=== PATIENT | male | born 1940 | race Caucasian/White ===

== ENCOUNTER 2016-10-26 15:14 | Emergency (ER) | payer OTHER ==
[~2016-10-26] VITALS: Ht 177.8 cm; Wt 94.5 kg
[~2016-10-26 15:14] MED LIST: ASPEC81; ATOR-24; CLTP; MULT-506; NTRGSL/4 UT; PRLSR20
[2016-10-26 15:18] VITALS: TEMP 36.8; Ht 177.8 cm; Wt 94.5 kg
[2016-10-26] MEDS ORDERED: XYLOCAINE 1%/SOD BICARB 20 ML VIAL INFIL ONE (15:30)
[2016-10-26] MEDS ORDERED: NITR0.4S UT (15:39)
[2016-10-26] MEDS ORDERED: MULTTAB58 PO (15:39)
[2016-10-26] MEDS ORDERED: LISI-461 PO (15:39)
[2016-10-26] MEDS ORDERED: OMEP20CA9 PO (15:39)
[2016-10-26] MEDS ORDERED: ASPI81TA21 PO (15:39)
[2016-10-26] MEDS ORDERED: CALCTAB7 PO (15:39)
[2016-10-26] MEDS ORDERED: LPT/40 PO (15:39)
[2016-10-26] MEDS ORDERED: DIPHTHERIA/TETANUS/PERTUSSIS 0.5 ML SYR/VIAL IM. ONE (15:45)
--- NOTE | 2016-10-26 16:13 | EMERGENCY ROOM VISIT NOTE ---
ED Visit Note First contact with patient: 16:02 I have seen and examined this patient with Nicolle Melo and generally agree with the treatment plan as discussed. Current/Historical Medications Scheduled Aspirin Enteric Coated (Ecotrin Or Generic), 81 MG PO QAM Atorvastatin (Lipitor), 40 MG PO HS Calcium Carbonate-Vitamin D W/ (Caltrate 600 Plus), 1 TAB PO QAM Lisinopril (Lisinopril), 10 MG PO QAM Multiple Vitamin (Multivitamin), 1 TAB PO QAM Omeprazole (Prilosec), 20 MG PO QAM Scheduled PRN Nitroglycerin (Nitrostat), 0.4 MG UT PRN PRN for Chest Pain Allergies Coded Allergies: Sulfa Drugs (Verified Allergy, Intermediate, RASH, 10/26/16) Vital Signs Date Time Temp Pulse Resp B/P (MAP) Pulse Ox O2 Delivery O2 Flow Rate FiO2 10/26/16 15:18 36.8 58 16 136/91 97 Room Air Medications Administered Medications (Trade) Dose Ordered Sig/Kristian Route Start Time Stop Time Status Last Admin Dose Admin Lidocaine HCl (Buffered Lidocaine 1% Inj) 20 ml NOW ONCE INFIL 10/26/16 15:30 10/26/16 15:31 DC 10/26/16 15:30 20 ML Diphtheria/ Pertussis/Tetanus Vacc (Adacel Inj) 0.5 ml ONCE ONCE IM. 10/26/16 15:45 10/26/16 15:46 DC 10/26/16 16:00 0.5 ML Departure Information Referrals Valentin Freitas D.O. (PCP) Patient Instructions My [facility]
--- NOTE | 2016-10-26 16:14 | EMERGENCY ROOM VISIT NOTE ---
ED Visit Note First contact with patient: 15:22 CHIEF COMPLAINT: Left thumb laceration HISTORY OF PRESENT ILLNESS: This 76-year-old male presents the ER with chief complaint of a laceration at the base of his left thumb. The patient states he tripped over something and fell and he thinks he cut his left hand on an electrical box. The patient denies any numbness and tingling in his fingers. The patient states his tetanus is not up-to-date. He denies any difficulty moving his thumb. REVIEW OF SYSTEMS: 6 system review was performed and was negative unless stated otherwise in history of present illness. PMH: The patient is healthy; cardiac stent placement, CAD SOCIAL HISTORY: Patient lives with his family. The patient denies any tobacco or alcohol use. PHYSICAL EXAM: Vital Signs: Were reviewed GENERAL: 76-year-old white male appears in no acute distress. MENTAL Status: Alert and oriented 3. LEFT HAND : There is a 3 cm long laceration on the palmar aspect at the base of the thumb . the edges gape apart with traction. There is no foreign material in the wound and it looks clean. There is no bleeding. No deep structures such as tendons or nerves are seen in the base of the wound. Extension of the finger is full and strong. EMERGENCY DEPARTMENT COURSE: Patient was evaluated. The patient was given Adacel. The patient was independently evaluated by Dr. Rich who agreed with treatment plan. Wound Repair: Was performed by the PA student under my direct supervision. Complexity: Basic. Verbal consent was obtained after the risks and benefits were explained, including but not limited to bleeding, scarring, infection, pain, and bone/joint /nerve damage. The skin was prepped with betadine and a sterile field set. The wound was anesthetized with 3.2 ml of 1% buffered lidocaine. With direct pressure the bleeding subsided. Copious irrigation was performed using sterile saline. The wound was explored for foreign bodies and none found. Debridement was not performed. The wound edges were approximated using 5-0 Ethilon with 11 simple interrupted sutures. Hemostasis and excellent approximation was achieved. Antibacterial ointment and a sterile dressing applied. Detailed wound care instructions and signs and symptoms of infection reviewed with the patient. No complications and the patient tolerated the procedure well. . DIAGNOSIS: 3 cm left thumb laceration DISCHARGE INSTRUCTIONS & TREATMENT: Watch the area carefully for signs of infection such as redness, swelling, or tenderness. Return if any of these appear for re-evaluation and consideration of antibiotic therapy. The stitches should be taken out in 12 days. Keep the wound covered with Bacitracin ointment and a bandage for 3 days. Read the wound care general instructions that you were given also. Current/Historical Medications Scheduled Aspirin Enteric Coated (Ecotrin Or Generic), 81 MG PO QAM Atorvastatin (Lipitor), 40 MG PO HS Calcium Carbonate-Vitamin D W/ (Caltrate 600 Plus), 1 TAB PO QAM Lisinopril (Lisinopril), 10 MG PO QAM Multiple Vitamin (Multivitamin), 1 TAB PO QAM Omeprazole (Prilosec), 20 MG PO QAM Scheduled PRN Nitroglycerin (Nitrostat), 0.4 MG UT PRN PRN for Chest Pain Allergies Coded Allergies: Sulfa Drugs (Verified Allergy, Intermediate, RASH, 10/26/16) Vital Signs Date Time Temp Pulse Resp B/P (MAP) Pulse Ox O2 Delivery O2 Flow Rate FiO2 10/26/16 15:18 36.8 58 16 136/91 97 Room Air Medications Administered Medications (Trade) Dose Ordered Sig/Kristian Route Start Time Stop Time Status Last Admin Dose Admin Lidocaine HCl (Buffered Lidocaine 1% Inj) 20 ml NOW ONCE INFIL 10/26/16 15:30 10/26/16 15:31 DC 10/26/16 15:30 20 ML Diphtheria/ Pertussis/Tetanus Vacc (Adacel Inj) 0.5 ml ONCE ONCE IM. 10/26/16 15:45 10/26/16 15:46 DC 10/26/16 16:00 0.5 ML Departure Information Referrals Valentin Freitas D.O. (PCP) Patient Instructions My [facility]
[2016-10-26 16:41] VITALS: BP 130/52; PULSE 52; O2SAT 97
== END 2016-10-26 16:44 | disposition home or self-care (01) ==
LOC: C.EDB 15:15 → C.EDD 16:44
DX: S61.012A Laceration without foreign body of left thumb without damage to nail, initial encounter (principal); W18.09XA Striking against other object with subsequent fall, initial encounter; I25.10 Atherosclerotic heart disease of native coronary artery without angina pectoris; Z79.899 Other long term (current) drug therapy

== ENCOUNTER → 2017-04-14 | Outpatient (CLI) | payer OTHER ==
[~2017-04-14] MED LIST changes: -ASPEC81; +ASPI81TA21 PO; -ATOR-24; +CALCTAB7 PO; -CLTP; +LISI-461 PO; +LPT/40 PO; -MULT-506; +MULTTAB58 PO; +NITR0.4S UT; -NTRGSL/4 UT; +OMEP20CA9 PO; -PRLSR20
== END | disposition home or self-care (01) ==
LOC: C.PATHSPEC 11:17
DX: K13.0 Diseases of lips (principal)

== ENCOUNTER → 2017-07-01 | Outpatient (CLI) | payer OTHER ==
--- NOTE | 2017-07-01 12:14 | DIAGNOSTIC IMAGING REPORT ---
L-SPINE MIN 4 VIEWS ROUTINE HISTORY: Hip pain DORSALGIA,PAIN IN UNSPECIFIED HIP COMPARISON: None. FINDINGS: There is no fracture. No subluxation. Mild degenerative disc change throughout. Moderate degenerative anterior osteophyte formation at the low thoracic and upper lumbar spine. Degenerative change posterior elements. No evidence for subluxation. No evidence for compression deformity. IMPRESSION: Moderate degenerative change. No acute process. The above report was generated using voice recognition software. It may contain grammatical, syntax or spelling errors. Electronically signed by: Reji Melo M.D. 07/01/2017 12:13 PM Dictated Date/Time: 07/01/2017 12:11 PM
--- NOTE | 2017-07-01 12:25 | DIAGNOSTIC IMAGING REPORT ---
RIGHT HIP 2 VIEWS HISTORY: Right hip pain. COMPARISON: None. FINDINGS: There is no fracture or dislocation. Soft tissues are unremarkable. The visualized pelvic bones are intact. Mild space narrowing with marginal osteophytes at the right hip consistent with osteoarthritis. IMPRESSION: 1. No fracture or dislocation within the right hip. 2. Mild right hip osteoarthritis. Electronically signed by: Guanaco Person M.D. 07/01/2017 12:24 PM Dictated Date/Time: 07/01/2017 12:23 PM
--- NOTE | 2017-07-01 12:42 | DIAGNOSTIC IMAGING REPORT ---
SACRUM COCCYX MIN 2 VIEWS CLINICAL HISTORY: DORSALGIA,PAIN IN UNSPECIFIED HIP pain COMPARISON STUDY: None FINDINGS: Cortical fracture lower sacrum felt to be nonacute. No additional abnormality is appreciated. Sacral foramina are symmetric. Coccygeal segments are aligned appropriately. IMPRESSION: Cortical fracture lower sacrum felt to be old, unless clinically tender over this region.. No acute process. The above report was generated using voice recognition software. It may contain grammatical, syntax or spelling errors. Electronically signed by: Reji Melo M.D. 07/01/2017 12:40 PM Dictated Date/Time: 07/01/2017 12:38 PM
== END | disposition home or self-care (01) ==
LOC: C.RAD1850 11:49
PROVIDERS: ATTEND Family Medicine
DX: M25.551 Pain in right hip (principal); M54.9 Dorsalgia, unspecified

== ENCOUNTER 2020-01-24 11:29 | Observation (INO) ==
--- OUTSIDE RECORDS SUMMARY | 2020-01-24 11:32 | External Medical Summary | Continuity of Care Document ---
:1940 Author Name Manjit Medina, Provider Address Unavailable Unavailable , Care Team Providers Name Role Phone Unavailable Unavailable Unavailable Natasha Medina, Reji Unavailable [email or web address] Jacque Medina, [email or web address] DIAN POTTS Unavailable Unavailable Unavailable Unavailable Unavailable Problems Coronary artery disease (414.00) (I25.10) Esophageal reflux (530.81) (K21.9) Hyperglycemia (790.29) (R73.9) Dyslipidemia (272.4) (E78.5) History of actinic keratoses (V13.3) (Z87.2) Dermatitis, contact (692.9) (L25.9) Neoplasm of uncertain behavior of skin (238.2) (D48.5) Hyperlipidemia (272.4) (E78.5) Hypertension (401.9) (I10) Lip lesion (528.5) (K13.0) Dermatitis (692.9) (L30.9) Rash and nonspecific skin eruption (782.1) (R21) Actinic keratosis (702.0) (L57.0) Allergies and Adverse Reactions Niaspan TBCR (Allergy) Reaction: Itching Sulfa Drugs (Allergy) Reaction: Rash Zocor TABS (Allergy) Latex (Allergy) Reaction: Itching Medications Lipitor 40 MG Oral Tablet; Take 1 tablet daily , M.D. Refills: 0 Aspirin 81 MG TABS; TAKE 1 TABLET DAILY. , M.D. Refills: 0 Multivitamins TABS; TAKE 1 TABLET DAILY. , M.D. Refills: 0 Calcium 600 MG Oral Tablet; Take 1 tablet daily , M.D. Refills: 0 PriLOSEC 20 MG CPDR; TAKE 1 CAPSULE DAILY. , M.D. Refills: 0 Lisinopril 10 MG Oral Tablet; TAKE 1 TABLET DAILY. , M.D. Start: 30-Jul-2014 Quantity: 90 Refills: 3 Potassium Gluconate 595 (99 K) MG Oral Tablet , M.DJerilyn Refills: 0 Fluocinonide 0.05 % External Ointment; A PPLY SPARINGLY TO AFFECTED AREA(S) TWICE DAILY Adam Kaur Start: 02-Aug-2016 Quantity: 1 60 GM Tube Refills: 2 Mupirocin 2 % External Ointment; APPLIED SMALL AMOUNT TO LIPS AND CORNERS OF MOUTH TWICE DAILY Adam Santillan Start: 22-Apr-2017 Quantity: 1 15 GM Tube Refills: 3 Procedures History of Cath Stent Placement Status: Completed History of Transurethral Resection Of Prostate (TURP) Status: Completed History of skin lesion excision Status: Completed Immunizations Immunizations not documented Family History Father Family history of Lung Cancer (V16.1) Status: Active Family history of cardiac disorder (V17.49) (Z82.49) Status: Active Mother Family history of Malignant Pancreatic Neoplasm Status: Acti ve Family history of cerebrovascular accident (CVA) (V17.1) (Z8 2.3) Status: Active Sister Family history of Rheumatic Heart Disease Status: Active Family history of Coronary Artery Disease Status: Active Social History - Smoking Status Ex-smoker Plan of Treatment Planned Observations Planned Goals not documented Results No Known Results Results not documented
--- OUTSIDE RECORDS SUMMARY | 2020-01-24 11:32 | External Medical Summary | Continuity of Care Document ---
:1940 Author Name Manjit Medina, Provider Address Unavailable Unavailable , Care Team Providers Name Role Phone Unavailable Unavailable Unavailable Natasha Medina, Reji Unavailable [email or web address] Jacque Medina, [email or web address] DIAN POTTS Unavailable Unavailable Unavailable Unavailable Unavailable [...]
--- NOTE | 2020-01-24 12:09 | Emergency Department Note ---
Impression & Plan Syncope, HTN (hypertension), Bilateral pulmonary embolism ED Provider Note NAME: LOU MONTEMAYOR AGE: 79 SEX: M : 1940 ARRIVES VIA: Walk-In INFORMANT: Patient ED PROVIDER(S): Feng Escoto DO CHIEF COMPLAINT: syncope HPI: Patient is a 79-year-old male with a past medical history coronary artery stent who presents the ER for syncopal event. He was out watching another gentleman on a tractor in the backyard. The next thing he knew he woke up on the ground. He does not remember anything. He had no prodromal symptoms. He did fall backwards onto the grass. There is no twitching. Patient denied any headache or change in vision, chest pain, shortness of breath, nausea, vomiting, or diarrhea prior to the event. He complains of a headache and some mid cervical spine tenderness following the fall. He rates that as a 5 out of 10. No other exacerbating or remitting factors. ROS: See above HPI for pertinent positives & negatives. A total of 10 systems reviewed and were otherwise negative. PAST MEDICAL HISTORY:See Below PAST SURGICAL HISTORY:See Below FAMILY HISTORY:See Below SOCIAL HISTORY:See Below HOME MEDICATIONS:See Below ALLERGIES:See Below VITALS:See Below PHYSICAL EXAMINATION: GENERAL: Sitting up in bed, alert, well appearing, well nourished, no distress, non-toxic EYE EXAM: normal conjunctiva. PERRL and EOM's intact. OROPHARYNX: no exudate, no erythema, lips, buccal mucosa, and tongue normal and mucous membranes are moist NECK: supple, no nuchal rigidity, no adenopathy, mild midline tenderness in the upper cervical region LUNGS: Clear to auscultation. Normal chest wall mechanics HEART: no murmurs, S1 normal and S2 normal ABDOMEN: abdomen soft, non-tender, normo-active bowel sounds, no masses, no rebound or guarding. BACK: Back is symmetrical on inspection and there is no deformity, no midline tenderness, no CVA tenderness. SKIN: no rashes and no bruising UPPER EXTREMITIES: upper extremities are grossly normal. LOWER EXTREMITIES: No pitting edema. NEURO EXAM: Normal sensorium, cranial nerves II-XII intact, normal speech, no weakness of arms, no weakness of legs. No drift. Finger to nose intact. Gross sensation intact. [id number] intact. Rapid alternating movements of upper extremities intact MEDICAL DECISION MAKING: Patient is a 79-year-old male who presents the ER for syncopal episode. He fell backwards and hit his head. IV was established blood work was obtained. Labs showed no significant leukocytosis or anemia. INR was unremarkable. D-dimer was elevated at 28,000. BMP normal troponin LFTs was unremarkable. With the elevated d-dimer CT Carissa of the chest was performed showed bilateral PEs. Bleeding risk factors were discussed with him. He denied all of them. He was given a heparin bolus and a drip. EKG showed no acute ischemia. He was updated bedside. Discussed with hospitalist for further evaluation of his syncope. Triage Nursing notes reviewed. Prior medical records reviewed Vital Signs: reviewed and remarkable for no significant abnormalities Differential diagnosis: Differential diagnosis includes etiologies such as vasovagal event, infection, hypoglycemia, electrolyte abnormalities, cardiac sources, intracerebral event, toxicologic, neurologic, as well as others were entertained. ER treatment provided: See below Diagnostics interpreted by me: ECG: Sinus bradycardia rate of 55 Normal axis No PVCs Normal QTC Cardiac Monitoring: An order was placed for continuous cardiac monitoring. The monitor shows a rate of 58 with sinus rhythm. Laboratory studies: As stated above and show below. Imaging studies: CT Carissa of the chest shows bilateral PEs CT of the head and CT of cervical spine showed no acute fractures or bleeds Consultation(s): Discussed with Dr. Praneeth Espino for further evaluation ED COURSE: Procedures: none Critical Care: I have personally spent 32 minutes of critical care time in the direct management of this patient. This includes bedside care, interpretation of diagnostic studies, and testing, discussion with consultants, patient, and family members, and other required patient management activities. This 32 minut es is in excess of all separately billable procedures. Past Med/Surg History Medical History (Updated 01/24/20 @ 18:19 by Feng Escoto DO) Coronary artery disease GERD (gastroesophageal reflux disease) HTN (hypertension) Surgical History (Updated 01/24/20 @ 14:54 by Praneeth Espino MD) S/P TURP Social History Smoking Status: Former smoker Smoking End Date: 30 yrs ago; Hx Alcohol Use: Yes Alcohol type: beer Hx Substance Use: No Preferred Language: [place] Communication Ability: Effective Babcock Tester Required: No Beliefs That Will Affect Care: None Current Living Situation: Spouse Other Information That Helps Us Care for You: No Feels Safe at Home: Yes Safety Concerns: Feels Safe At This Time Allergies Allergies Allergy/AdvReac Type Severity Reaction Status Date / Time Sulfa (Sulfonamide Allergy Intermediate RASH Verified 01/24/20 12:42 Antibiotics) Home Meds Home Medications Medication Instructions Recorded Confirmed aspirin [Aspir-81] 81 mg PO DAILY 01/24/20 01/24/20 atorvastatin 40 mg PO HS 01/24/20 01/24/20 calcium carbonate-vitamin D3 1 tab PO DAILY 01/24/20 01/24/20 [Calcium 600 + D(3)] escitalopram oxalate 10 mg PO DAILY 01/24/20 01/24/20 lisinopril 10 mg PO DAILY 01/24/20 01/24/20 multivitamin 1 tab PO DAILY 01/24/20 01/24/20 omeprazole 20 mg PO DAILY 01/24/20 01/24/20 potassium gluconate 595 mg PO DAILY 01/24/20 01/24/20 zinc 50 mg PO DAILY 01/24/20 01/24/20 Results & Data (ED) Vital Signs Vital Signs - 24 hr 01/24/20 11:35 01/24/20 11:46 01/24/20 11:50 Temperature 36.8 C Temperature Source Oral Pulse Rate 59 L 54 L 54 L Pulse Rate from SpO2 Sensor Pulse Rhythm Regular Pulse Strength Normal Respiratory Rate 20 18 16 Respiratory Effort / Characteristics Non-Labored Spontaneous Respiratory Depth Normal Respiratory Pattern Regular Blood Pressure 173/99 H Blood Pressure Mean 123 Blood Pressure Position Sitting Pulse Oximetry 95 Oxygen Delivery Method Room Air Room Air Room Air Sepsis Recent Fever Within 48 Hours No Sepsis New/Unexplained Change in Mental Status No Sepsis Action Taken by Nursing No Action Required 01/24/20 11:57 01/24/20 12:00 01/24/20 12:09 Temperature Temperature Source Pulse Rate 55 L 55 L Pulse Rate from SpO2 Sensor 55 L 55 L Pulse Rhythm Pulse Strength Respiratory Rate 20 24 Respiratory Effort / Characteristics Respiratory Depth Respiratory Pattern Blood Pressure 178/97 H 180/102 H Blood Pressure Mean 117 127 Blood Pressure Position Pulse Oximetry 97 97 Oxygen Delivery Method Room Air Room Air Room Air Sepsis Recent Fever Within 48 Hours Sepsis New/Unexplained Change in Mental Status Sepsis Action Taken by Nursing 01/24/20 12:10 01/24/20 12:20 01/24/20 12:30 Temperature Temperature Source Pulse Rate 54 L 54 L 55 L Pulse Rate from SpO2 Sensor 55 L 55 L 55 L Pulse Rhythm Pulse Strength Respiratory Rate 24 23 25 H Respiratory Effort / Characteristics Respiratory Depth Respiratory Pattern Blood Pressure 153/99 H Blood Pressure Mean 119 Blood Pressure Position Pulse Oximetry 97 97 98 Oxygen Delivery Method Room Air Room Air Room Air Sepsis Recent Fever Within 48 Hours Sepsis New/Unexplained Change in Mental Status Sepsis Action Taken by Nursing 01/24/20 12:40 01/24/20 12:50 01/24/20 13:00 Temperature Temperature Source Pulse Rate 55 L 55 L 57 L Pulse Rate from SpO2 Sensor Pulse Rhythm Pulse Strength Respiratory Rate 20 21 21 Respiratory Effort / Characteristics Respiratory Depth Respiratory Pattern Blood Pressure 177/99 H Blood Pressure Mean 128 Blood Pressure Position Pulse Oximetry Oxygen Delivery Method Room Air Room Air Room Air Sepsis Recent Fever Within 48 Hours Sepsis New/Unexplained Change in Mental Status Sepsis Action Taken by Nursing 01/24/20 13:27 01/24/20 13:30 01/24/20 13:40 Temperature Temperature Source Pulse Rate 77 77 74 Pulse Rate from SpO2 Sensor 77 76 75 Pulse Rhythm Pulse Strength Respiratory Rate 23 19 25 H Respiratory Effort / Characteristics Respiratory Depth Respiratory Pattern Blood Pressure 179/95 H 185/102 H Blood Pressure Mean 118 106 Blood Pressure Position Pulse Oximetry 98 98 99 Oxygen Delivery Method Room Air Room Air Room Air Sepsis Recent Fever Within 48 Hours Sepsis New/Unexplained Change in Mental Status Sepsis Action Taken by Nursing 01/24/20 13:50 01/24/20 14:00 01/24/20 14:10 Temperature Temperature Source Pulse Rate 71 57 L 62 Pulse Rate from SpO2 Sensor 72 67 65 Pulse Rhythm Pulse Strength Respiratory Rate 21 20 23 Respiratory Effort / Characteristics Respiratory Depth Respiratory Pattern Blood Pressure 169/103 H Blood Pressure Mean 116 Blood Pressure Position Pulse Oximetry 98 97 97 Oxygen Delivery Method Room Air Room Air Room Air Sepsis Recent Fever Within 48 Hours Sepsis New/Unexplained Change in Mental Status Sepsis Action Taken by Nursing 01/24/20 14:20 01/24/20 14:30 01/24/20 14:40 Temperature Temperature Source Pulse Rate 54 L 62 62 Pulse Rate from SpO2 Sensor 61 60 61 Pulse Rhythm Pulse Strength Respiratory Rate 23 22 24 Respiratory Effort / Characteristics Respiratory Depth Respiratory Pattern Blood Pressure 154/86 H Blood Pressure Mean 88 Blood Pressure Position Pulse Oximetry 98 94 95 Oxygen Delivery Method Room Air Room Air Room Air Sepsis Recent Fever Within 48 Hours Sepsis New/Unexplained Change in Mental Status Sepsis Action Taken by Nursing 01/24/20 14:50 01/24/20 15:00 01/24/20 15:10 Temperature Temperature Source Pulse Rate 74 56 L 81 Pulse Rate from SpO2 Sensor 69 62 Pulse Rhythm Pulse Strength Respiratory Rate 20 27 H 19 Respiratory Effort / Characteristics Respiratory Depth Respiratory Pattern Blood Pressure 169/99 H Blood Pressure Mean 110 Blood Pressure Position Pulse Oximetry 96 97 Oxygen Delivery Method Room Air Room Air Room Air Sepsis Recent Fever Within 48 Hours Sepsis New/Unexplained Change in Mental Status Sepsis Action Taken by Nursing 01/24/20 15:20 01/24/20 15:30 01/24/20 15:37 Temperature Temperature Source Pulse Rate 65 63 Pulse Rate from SpO2 Sensor Pulse Rhythm Pulse Strength Respiratory Rate 21 22 Respiratory Effort / Characteristics Respiratory Depth Respiratory Pattern Blood Pressure Blood Pressure Mean Blood Pressure Position Pulse Oximetry Oxygen Delivery Method Room Air Room Air Room Air Sepsis Recent Fever Within 48 Hours Sepsis New/Unexplained Change in Mental Status Sepsis Action Taken by Nursing Laboratory Data Result diagrams: 01/24/20 12:24 01/24/20 12:24 Lab Results 01/24/20 01/24/20 01/24/20 Range/Units 12:24 12:24 12:24 WBC 7.37 (4.8-10.8) K/uL RBC 4.55 L (4.7-6.1) M/uL Hgb 14.7 (14.0-18.0) g/dL Hct 43.5 (42-52) % MCV 95.6 (80-100) fL MCH 32.3 (25-34) pg MCHC 33.8 (32-36) g/dL RDW Std Deviation 47.2 H (36.4-46.3) fL RDW Coeff of Pedro 13.7 (11.5-14.5) % Plt Count 186 (130-400) K/uL MPV 9.8 (7.4-10.4) fL Immature Gran % (Auto) 0.3 % Neut % (Auto) 71.3 % Lymph % (Auto) 19.9 % [place] % (Auto) 6.8 % Eos % (Auto) 1.6 % Baso % (Auto) 0.1 % Neut # (Auto) 5.25 (1.4-6.5) K/uL Lymph # (Auto) 1.47 (1.2-3.4) K/uL [place] # (Auto) 0.50 (0.11-0.59) K/uL Eos # (Auto) 0.12 (0-0.5) K/uL Baso # (Auto) 0.01 (0-0.2) K/uL Immature Gran # (Auto) 0.02 (0.00-0.02) K/uL PT 11.4 (9.0-12.0) Seconds INR 1.1 (0.9-1.1) APTT (21.0-31.0) Seconds PTT Ratio D-Dimer 00693 H* (0-500) ug/L FEU Sodium 139 (136-145) mmol/L Potassium 4.6 (3.5-5.1) mmol/L Chloride 107 (98-107) mmol/L Carbon Dioxide 28 (21-32) mmol/L Anion Gap 5.0 (3-11) BUN 14 (7-18) mg/dl Creatinine 1.07 (0.6-1.4) mg/dl Est Cr Clr Drug Dosing 66.2 ml/min Est GFR ( Amer) 76.7 Est GFR (Non-Af Amer) 66.1 BUN/Creatinine Ratio 12.7 (10-20) Glucose 99 (70-99) mg/dl Calcium 9.5 (8.5-10.1) mg/dl Magnesium 2.1 (1.8-2.4) mg/dl Total Bilirubin 0.5 (0.2-1) mg/dl AST 25 (15-37) U/L ALT 39 (12-78) U/L Alkaline Phosphatase 94 (45-117) U/L Troponin I < 0.015 (0-0.045) ng/ml Total Protein 7.6 (6.4-8.2) gm/dl Albumin 3.7 (3.4-5.0) gm/dl Globulin 3.9 (2.5-4.0) gm/dl Albumin/Globulin Ratio 0.9 (0.9-2) TSH 2.840 (0.300-4.500) uIu/ml 01/24/20 Range/Units 12:24 WBC (4.8-10.8) K/uL RBC (4.7-6.1) M/uL Hgb (14.0-18.0) g/dL Hct (42-52) % MCV (80-100) fL MCH (25-34) pg MCHC (32-36) g/dL RDW Std Deviation (36.4-46.3) fL RDW Coeff of Pedro (11.5-14.5) % Plt Count (130-400) K/uL MPV (7.4-10.4) fL Immature Gran % (Auto) % Neut % (Auto) % Lymph % (Auto) % [place] % (Auto) % Eos % (Auto) % Baso % (Auto) % Neut # (Auto) (1.4-6.5) K/uL Lymph # (Auto) (1.2-3.4) K/uL [place] # (Auto) (0.11-0.59) K/uL Eos # (Auto) (0-0.5) K/uL Baso # (Auto) (0-0.2) K/uL Immature Gran # (Auto) (0.00-0.02) K/uL PT (9.0-12.0) Seconds INR (0.9-1.1) APTT 24.4 (21.0-31.0) Seconds PTT Ratio 0.9 D-Dimer (0-500) ug/L FEU Sodium (136-145) mmol/L Potassium (3.5-5.1) mmol/L Chloride (98-107) mmol/L Carbon Dioxide (21-32) mmol/L Anion Gap (3-11) BUN (7-18) mg/dl Creatinine (0.6-1.4) mg/dl Est Cr Clr Drug Dosing ml/min Est GFR ( Amer) Est GFR (Non-Af Amer) BUN/Creatinine Ratio (10-20) Glucose (70-99) mg/dl Calcium (8.5-10.1) mg/dl Magnesium (1.8-2.4) mg/dl Total Bilirubin (0.2-1) mg/dl AST (15-37) U/L ALT (12-78) U/L Alkaline Phosphatase (45-117) U/L Troponin I (0-0.045) ng/ml Total Protein (6.4-8.2) gm/dl Albumin (3.4-5.0) gm/dl Globulin (2.5-4.0) gm/dl Albumin/Globulin Ratio (0.9-2) TSH (0.300-4.500) uIu/ml Administered Medications Heparin Sodium/Dextrose (Heparin Sodium/Dextrose) 25,000 units in 500 mls @ 30 mls/hr IV .[id number] [facility]; Protocol Stop: 02/23/20 13:59 Last Admin: 01/24/20 14:23 Dose: 1,500 units/hr, 30 mls/hr Documented by: [id number] Cosigned by: [id number] Discontinued Medications Heparin Sodium (Porcine) (Heparin Sod 5,000 Unit/0.5 Ml Vial) Confirm Administered Dose 5,000 units .ROUTE .STK-MED ONE Stop: 01/24/20 14:11 Last Admin: 01/24/20 14:23 Dose: 5,000 units Documented by: [id number] Cosigned by: [id number] Heparin Sodium/Dextrose (Heparin Iv Standard With Bolus) 1 ea IV NOW STA; Protocol Stop: 01/24/20 13:55 Last Admin: 01/24/20 14:23 Dose: 1 ea Documented by: [id number] Sodium Chloride (Nss) 500 mls @ 999 mls/hr IV .Q31M [facility] Stop: 01/24/20 12:45 Last Infusion: 01/24/20 13:07 Dose: 0 mls/hr Documented by: [id number] Admin: 01/24/20 12:29 Dose: 999 mls/hr Documented by: [id number] Ioversol (Optiray 320 125ml) 116 ml IV ONCE ONE Stop: 01/24/20 13:19 Last Admin: 01/24/20 13:19 Dose: 116 ml Documented by: [id number] Discharge Plan Visit Data Chief Complaint: Syncope Stated Complaint: SYNCOPE ABOUT 30MINS AGO,HEADACHE ED Provider: Feng Escoto Discharge Problem: Syncope, HTN (hypertension), Bilateral pulmonary embolism Patient Disposition: Admitted As Inpatient Discharge Instructions Interventions: ED Discharge Assessment Last Done: 01/24/20 15:37 Discharge Problem: Syncope Qualifiers: Syncope type: unspecified Qualified Code(s): R55 - Syncope and collapse HTN (hypertension) Qualifiers: Hypertension type: unspecified Qualified Code(s): I10 - Essential (primary) hypertension
[2020-01-24] MEDS ORDERED: SODIUM CHLORIDE 0.9% 500 ML IV SCH (12:15)
[2020-01-24 12:33] LABS: Basophils # (auto) 0.01 K/uL (0-0.2); Basophils % (auto) 0.1 %; Eosinophils # (auto) 0.12 K/uL (0-0.5); Eosinophils % (auto) 1.6 %; Hematocrit (blood only) 43.5 % (42-52); Hemoglobin 14.7 g/dL (14.0-18.0); Immature Granulocytes # (auto) 0.02 K/uL (0.00-0.02); Immature Granulocytes % (auto) 0.3 %; Lymphocytes # (auto) 1.47 K/uL (1.2-3.4); Lymphocytes % (auto) 19.9 %; Mean Corpuscular Hemoglobin 32.3 pg (25-34); Mean Corpuscular Hgb Conc 33.8 g/dL (32-36); Mean Corpuscular Volume 95.6 fL (80-100); Mean Platelet Volume 9.8 fL (7.4-10.4); Monocytes % (auto) 6.8 %; Neutrophils # (auto) 5.25 K/uL (1.4-6.5); Neutrophils % (auto) 71.3 %; Platelet Count 186 K/uL (130-400); RDW Coefficient of Variation 13.7 % (11.5-14.5); RDW Standard Deviation 47.2 fL (36.4-46.3); Red Blood Count 4.55 M/uL (4.7-6.1); White Blood Count 7.37 K/uL (4.8-10.8)
[2020-01-24 12:53] LABS: INR 1.1 (0.9-1.1); Prothrombin Time 11.4 Seconds (9.0-12.0)
--- NOTE | 2020-01-24 12:54 | XRay Report ---
XR chest 1V portable CLINICAL HISTORY: syncope COMPARISON STUDY: Chest radiograph from 07/05/2010. FINDINGS: Patient is mildly rotated. There is no pneumothorax or pleural effusion. There is pulmonary vascular congestion without overt edema. No consolidation. Cardiomediastinal silhouette is stable. M ild cardiomegaly is unchanged. IMPRESSION: Pulmonary vascular congestion without overt pulmonary edema. ACT 112: Negative or not required by law. Electronically signed by: Jesus Triplett M.D. 01/24/2020 12:52 PM
[2020-01-24 12:56] LABS: Alanine Aminotransferase 39 U/L (12-78); Albumin Level 3.7 gm/dl (3.4-5.0); Aspartate Aminotransferase 25 U/L (15-37); BUN Creatinine Ratio 12.7 (10-20); Blood Urea Nitrogen 14 mg/dl (7-18); Calcium 9.5 mg/dl (8.5-10.1); Carbon Dioxide 28 mmol/L (21-32); Chloride 107 mmol/L (98-107); Creatinine Clr Calc Pharmacy 66.2 ml/min; Est GFR (African American) 76.7; Est GFR (Non-African American) 66.1; Glucose 99 mg/dl (70-99); Magnesium 2.1 mg/dl (1.8-2.4); Potassium 4.6 mmol/L (3.5-5.1); Sodium 139 mmol/L (136-145)
[2020-01-24 12:59] LABS: D Dimer 28800 ug/L FEU (0-500)
[2020-01-24 13:06] LABS: Albumin Globulin Ratio 0.9 (0.9-2); Alkaline Phosphatase 94 U/L (45-117); Bilirubin,Total 0.5 mg/dl (0.2-1); Globulin 3.9 gm/dl (2.5-4.0); Total Protein 7.6 gm/dl (6.4-8.2); Troponin I < 0.015 ng/ml (0-0.045)
[2020-01-24] MEDS ORDERED: OPTIRAY 320 125ml IV ONE (13:18)
--- NOTE | 2020-01-24 13:38 | CT Scan Report ---
CT OF THE CERVICAL SPINE CLINICAL HISTORY: Neck pain status post trauma. Syncope. COMPARISON STUDY: No previous studies for comparison. CT DOSE: TECHNIQUE: CT scan of the cervical spine was performed from the skull base to the thoracic inlet. Elisabet ges are reviewed in the axial, sagittal, and coronal planes. IV contrast was not administered for thi s examination. A dose lowering technique was utilized adhering to the principles of ALARA. FINDINGS: The visualized portions of the lung apices reveal no evidence of pneumothorax. The prevertebral soft tissues are normal. No fractures or subluxations are visualized. There is a co ngenitally incomplete posterior C1 arch. There are multilevel degenerative changes IMPRESSION: No evidence of acute fracture or traumatic subluxation. ACT 112: Negative or not required by law. Electronically signed by: Gomez Roper M.D. 01/24/2020 1:37 PM
--- NOTE | 2020-01-24 13:38 | CT Scan Report ---
CT head/brain wo con CLINICAL HISTORY: Fall. Syncope. Head and neck pain. COMPARISON STUDY: No previous studies for comparison. TECHNIQUE: Axial CT of the brain is performed from the vertex to the skull base. IV contrast was not administered for this examination. A dose lowering technique was utilized adhering to the principles of ALARA. CT DOSE: FINDINGS: No intra or extra-axial mass lesions are visualized. There is no CT evidence of acute cortical infarc tion. There is no evidence of midline shift. There is no acute hemorrhage. No calvarial fractures ar e visualized. There are moderate white matter hypodensities likely on a small vessel basis. 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 There is no evidence of acute sinusitis. There are dense distal left vertebral artery calcifications IMPRESSION: No acute intracranial findings ACT 112: Negative or not required by law. Electronically signed by: Gomez Roper M.D. 01/24/2020 1:37 PM
--- NOTE | 2020-01-24 13:52 | CT Scan Report ---
CHEST CTA for PULMONARY ARTERIES CT DOSE: 1844.50 mGy.cm HISTORY: Syncope. Elevated d-dimer. TECHNIQUE: Multiaxial CT images of the chest were performed following the intravenous administration of contrast to evaluate the pulmonary arteries. Maximal intensity projection images were also obtaine d. A dose lowering technique was utilized adhering to the principles of ALARA. COMPARISON STUDY: Chest CT 11/02/2009. FINDINGS: Normal caliber thoracic aorta with no evidence for dissection. The heart is mildly enlarged . A few scattered filling defects seen within the bilateral lower lobe segmental and subsegmental pul monary arteries consistent with pulmonary embolus. No evidence for right-sided heart strain. Limited views of the upper abdomen demonstrate a normal liver and adrenal glands. Calcified granulomas noted within the spleen. No mediastinal or hilar lymphadenopathy. Calcified left hilar lymph nodes are note d. No suspicious lytic or blastic osseous lesions. No pneumothorax. The central airways are patent. O ld, healed left anterior second through fourth rib fractures. Stable 6 mm triangular nodular density within the lingula on image 117. This is likely benign given the long-term stability. Stable 9 mm sub pleural nodule within the right middle lobe on image 134. This is also considered to be benign. No fo bam lung consolidations to suggest pneumonia. IMPRESSION: Bilateral lower lobe segmental and subsegmental pulmonary emboli. No evidence for right-sided heart s train. ACT 112: Negative or not required by law. Electronically signed by: Guanaco Person M.D. 01/24/2020 1:50 PM
[2020-01-24] MEDS ORDERED: HEPARIN SOD 5,000 UNIT/0.5 ML VIAL ONE (14:10)
[2020-01-24] MEDS: HEPARIN SODIUM/DEXTROSE 25,000 UNITS/500 ML BAG IV SCH (14:23)
--- NOTE | 2020-01-24 14:36 | History & Physical Report ---
Date of Service January 24, 2020 Assessment & Plan (1) Syncope: Cardiac sounding syncope ?sinus pause - marked sinus arrhythmia on telemetry in ER. Admit to PCU for cardiac monitoring TTE Consult his usual water rights specialist Dr Alejandro (2) Bilateral pulmonary embolism: Heparin IV drip standard + bolus US venous doppler b/l LE - if extensive/proximal DVT formation will get CT A/P to assess for compression given FHx of GI cancer and very elevated d-dimer. (3) Coronary artery disease: Continue ASA 81mg PO daily, Lisinopril 10mg PO daily, Atorvastatin 40mg PO daily (4) HTN (hypertension): Continue his routine medications lisinopril 10mg PO daily (5) GERD (gastroesophageal reflux disease): Continue omeprazole 20mg PO daily or hospital formulary equivalent (6) DVT prophylaxis: Deferred chemical prophylaxis pending cardiology consult to see if procedure required. Encourage ambulation with falls risk. Admission and Anticipated Discharge Date Admission Date: 01/24/2020 History of Present Illness Chief Complaint: Syncope Primary Care Provider: Valentin Freitas DO Kyaw Londono is a 80-year-old male with known coronary artery disease s/p stent who presents to the ER with a syncopal event. 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 No prodromal symptoms. Never had a similar episode previously. Witness (story not first hand but told by his ), the patient looked up and then collapsed backwards. Loss of consciousness approx 30 seconds. No seizure-like activity. In the ER d-dimer was markedly elevated. Subsequent CT for PE showed b/l lower lobe segmental and subsegmental pulmonary emboli. He was started on IV heparin drip. He denies any recent weight loss. Colonoscopy every 5 years - thinks last one 3-4 years ago. Notable family history for his mother having pancreatic cancer and brother with esophageal cancer. Personal history - stent placed for angina many years ago, Stress echo 3 years ago Family history: Brother - CHF 79 years old. esophageal ca., Father - [place], Mother - breast and pancreatic ca., Sister - CAD, Sister - breast cancer. Allergies Allergy/AdvReac Type Severity Reaction Status Date / Time Sulfa (Sulfonamide Allergy Intermediate RASH Verified 01/24/20 12:42 Antibiotics) Home Medications Home Medications Medication Instructions Recorded Confirmed Type aspirin [Aspir-81] 81 mg PO DAILY 01/24/20 01/24/20 History atorvastatin 40 mg PO HS 01/24/20 01/24/20 History calcium carbonate-vitamin D3 1 tab PO DAILY 01/24/20 01/24/20 History [Calcium 600 + D(3)] escitalopram oxalate 10 mg PO DAILY 01/24/20 01/24/20 History lisinopril 10 mg PO DAILY 01/24/20 01/24/20 History multivitamin 1 tab PO DAILY 01/24/20 01/24/20 History omeprazole 20 mg PO DAILY 01/24/20 01/24/20 History potassium gluconate 595 mg PO DAILY 01/24/20 01/24/20 History zinc 50 mg PO DAILY 01/24/20 01/24/20 History Past Med/Surg History Medical History (Updated 01/25/20 @ 06:04 by Praneeth Espino MD) Benign prostatic hyperplasia Coronary artery disease GERD (gastroesophageal reflux disease) HTN (hypertension) Surgical History (Updated 01/24/20 @ 14:54 by Praneeth Espino MD) S/P TURP Social History Smoking Status: Former smoker Smoking End Date: 30 yrs ago; Hx Alcohol Use: Yes Alcohol type: beer Hx Substance Use: No Preferred Language: Slovak Communication Ability: Effective Galvanometer Assembler Required: No Beliefs That Will Affect Care: None Current Living Situation: Spouse Other Information That Helps Us Care for You: No Feels Safe at Home: Yes Safety Concerns: Feels Safe At This Time Review of Systems Review of Systems: All systems reviewed & are unremarkable except as noted in HPI & below Gastrointestinal: + abdominal pain (umbilical, cramping, mild); no nausea and no vomiting Physical Exam Constitutional: WD/WN, vitals as above Eyes: PERRL, conjunctivae normal, anicteric sclerae ENMT: external ear and nose normal, oropharynx normal Neck: trachea midline, no thyromegaly Respiratory: normal respiratory effort, lungs clear to auscultation Cardiovascular: Rate/Rhythm: + bradycardic and + irregularly irregular Heart Sounds: no murmur Vessels: no JVD Extremities: normal capillary refill and + pedal edema (trace b/l ankles equal); no calf tenderness Gastrointestinal (Abdomen): normal bowel sounds, soft, nontender, no hepatosplenomegaly Musculoskeletal: no cyanosis or clubbing, extremities motor strength 5/5 Skin: no rashes, warm and dry (no areas of cellulitis) Neurologic: moves all extremities and awake; no focal motor deficits and not confused Speech / Cognition: normal speech Motor/Sensory: no tremor and no pronator drift Cranial Nerves: PERRL, normal accommodation, EOM intact bilaterally, normal facial strength, tongue midline, able to rotate head bilaterally, able to elevate shoulders bilaterally, no nystagmus and symmetric palate elevation Psychiatric: A+Ox3, euthymic affect Genitourinary: no CVA tenderness Lymphatic: no cervical or axillary lymphadenopathy Results & Data Results & Data ([facility]) Vital Signs (Past 12 Hours) Vital Signs Temp Pulse Resp BP Pulse Ox 01/24/20 14:00 57 L 20 169/103 H 97 01/24/20 13:50 71 21 98 01/24/20 13:40 74 25 H 99 01/24/20 13:30 77 19 185/102 H 98 01/24/20 13:27 77 23 179/95 H 98 01/24/20 13:00 57 L 21 177/99 H 01/24/20 12:50 55 L 21 01/24/20 12:40 55 L 20 01/24/20 12:30 55 L 25 H 153/99 H 98 01/24/20 12:20 54 L 23 97 01/24/20 12:10 54 L 24 97 01/24/20 12:00 55 L 24 180/102 H 97 01/24/20 11:57 55 L 20 178/97 H 97 01/24/20 11:50 54 L 16 01/24/20 11:46 54 L 18 01/24/20 11:35 36.8 C 59 L 20 173/99 H [address] head/brain wo con IMPRESSION: No acute intracranial findings CT OF THE CERVICAL SPINE IMPRESSION: No evidence of acute fracture or traumatic subluxation. XR chest 1V portable IMPRESSION: Pulmonary vascular congestion without overt pulmonary edema. CHEST CTA for PULMONARY ARTERIES IMPRESSION: Bilateral lower lobe segmental and subsegmental pulmonary emboli. No evidence for right-sided heart strain. ECG Indication: chest pain Rate (beats per minute): 55 Rhythm: sinus bradycardia and sinus with SA Findings: no acute ischemic change Comparison ECG Date: from (07/05/2010) Change: the following changes noted (minimal criteria for inferior infarct now present) Code Status & VTE Plan Code Status Full VTE Prophylaxis Plan VTE Prophylaxis will be ordered: No Reason for no VTE drug order: Treatment not indicated Reason for no VTE mechanical prophylaxis: Treatment not indicated PG Care Time/CCT Total # of Minutes Spent Total Time Spent with Patient: Total time spent is greater than 50% in coordination of care (as documented) at patient's floor/unit and/or counseling patient: Coding Level of Care Code 52139 Initial Inpt Care Lvl 3 Diagnoses Syncope R55 Syncope type: unspecified Bilateral pulmonary embolism I26.99 Coronary artery disease I25.10 HTN (hypertension) I10 Hypertension type: unspecified GERD (gastroesophageal reflux disease) K21.9 DVT prophylaxis Z29.9 (1) Syncope Syncope type: unspecified Qualified Code(s): R55 - Syncope and collapse (2) HTN (hypertension) Hypertension type: unspecified Qualified Code(s): I10 - Essential (primary) hypertension
[2020-01-24 14:37] LABS: Partial Thromboplastin Ratio 0.9; Partial Thromboplastin Time 24.4 Seconds (21.0-31.0)
--- NOTE | 2020-01-24 16:42 | Ultrasound Report ---
BILATERAL LOWER EXTREMITY VENOUS DOPPLER HISTORY: Acute pain and swelling of the bilateral lower extremities r/o DVT COMPARISON STUDY: CTA chest of same day FINDINGS: There is normal compressibility, flow, and augmentation within the bilateral lower extremit y deep venous systems. IMPRESSION: No DVT within the right or left lower extremity. ACT 112: Negative or not required by law. Electronically signed by: Vicente James M.D. 01/24/2020 4:41 PM
[2020-01-24] MEDS ORDERED: ACETAMINOPHEN 325 MG TAB PO PRN (16:48)
[2020-01-24 20:26] LABS: Partial Thromboplastin Ratio 4.1
[2020-01-24 20:33] LABS: Partial Thromboplastin Time 113.3 Seconds (21.0-31.0)
[2020-01-24] MEDS: ATORVASTATIN 40 MG TAB PO SCH (20:47)
--- NOTE | 2020-01-24 22:51 | Electrocardiogram Report ---
Test Reason : Blood Pressure : / mmHG Vent. Rate : 055 BPM Atrial Rate : 055 BPM P-R Int : 184 ms QRS Dur : 084 ms QT Int : 408 ms P-R-T Axes : 028 010 026 degrees QTc Int : 390 ms Sinus bradycardia with marked sinus arrhythmia Cannot rule out Inferior infarct , age undetermined Abnormal ECG When compared with ECG of 05-JUL-2010 17:24, Minimal criteria for Inferior infarct are now Present Confirmed by Uziel Villanueva ([id number]) on 01/24/2020 10:51:13 PM Referred By: Valentin Freitas Confirmed By:Uziel Villanueva
[2020-01-25 04:05] LABS: Basophils # (auto) 0.02 K/uL (0-0.2); Basophils % (auto) 0.3 %; Eosinophils # (auto) 0.28 K/uL (0-0.5); Eosinophils % (auto) 4.4 %; Hematocrit (blood only) 38.7 % (42-52); Hemoglobin 12.9 g/dL (14.0-18.0); Immature Granulocytes # (auto) 0.01 K/uL (0.00-0.02); Immature Granulocytes % (auto) 0.2 %; Lymphocytes # (auto) 2.23 K/uL (1.2-3.4); Lymphocytes % (auto) 35.1 %; Mean Corpuscular Hemoglobin 31.5 pg (25-34); Mean Corpuscular Hgb Conc 33.3 g/dL (32-36); Mean Corpuscular Volume 94.4 fL (80-100); Mean Platelet Volume 9.9 fL (7.4-10.4); Monocytes # (auto) 0.48 K/uL (0.11-0.59); Monocytes % (auto) 7.5 %; Neutrophils # (auto) 3.34 K/uL (1.4-6.5); Neutrophils % (auto) 52.5 %; Platelet Count 172 K/uL (130-400); RDW Coefficient of Variation 13.6 % (11.5-14.5); RDW Standard Deviation 46.8 fL (36.4-46.3); White Blood Count 6.36 K/uL (4.8-10.8)
[2020-01-25 04:30] LABS: Partial Thromboplastin Ratio 2.9
[2020-01-25 04:38] LABS: Partial Thromboplastin Time 82.3 Seconds (21.0-31.0)
[2020-01-25 04:38] LABS: Blood Urea Nitrogen 14 mg/dl (7-18); Calcium 8.4 mg/dl (8.5-10.1); Carbon Dioxide 28 mmol/L (21-32); Chloride 106 mmol/L (98-107); Creatinine Clr Calc Pharmacy 65.3 ml/min; Est GFR (African American) 75.8; Est GFR (Non-African American) 65.4; Glucose 97 mg/dl (70-99); Potassium 3.6 mmol/L (3.5-5.1); Sodium 137 mmol/L (136-145); Troponin I < 0.015 ng/ml (0-0.045)
[2020-01-25] MEDS ORDERED: IOVERSOL 100ml IV ONE (06:14)
--- NOTE | 2020-01-25 07:46 | CT Scan Report ---
CT abd pelvis IV con only CLINICAL HISTORY: Abdominal pain, family history of pancreatic esophageal carcinoma. Elevated d-dimer . COMPARISON STUDY: October 2009 TECHNIQUE: The patient was scanned in a dynamic helical fashion during intravenous administration of 93 cc of Optiray 320 A dose lowering technique was utilized adhering to the principles of ALARA. CT DOSE: 711.86 mGy.cm FINDINGS: Lower chest: There is stable subpleural atelectasis/scarring within the right middle lobe. There is m inor dependent lower lobe atelectasis Liver: The contrast-enhanced liver is normal in size, contour, and attenuation. There is no intrahepa tic biliary ductal dilatation. The hepatic veins and portal veins are patent. Gallbladder: Unremarkable. Spleen: Normal in size and attenuation. Pancreas: Unremarkable. Adrenal glands: Unremarkable. Kidneys: There is a 12 mm left renal cyst Bowel: There are no transition zones to indicate bowel obstruction. There is no evidence of acute div erticulitis. There are no findings to indicate acute appendicitis. Peritoneum: There is no intraperitoneal free air or abdominal ascites. There are small fat-containing inguinal hernias versus lipomatous inguinal canals Vasculature: The abdominal aorta is normal in course and caliber. Adenopathy: None. Pelvic viscera: There is a TURP defect. Skeletal structures: Degenerative changes are present within the lumbar spine. There is a lumbar spin al stenosis. Arthritic changes are present within the hips IMPRESSION: 1. No acute intra-abdominal or pelvic findings 2. No evidence of bowel obstruction. No evidence of free air 3. Normal appendix. No evidence of acute diverticulitis 4. Degenerative changes present within the cervical spine with lumbar spinal stenosis ACT 112: Negative or not required by law. Electronically signed by: Gomez Roper M.D. 01/25/2020 7:45 AM
[2020-01-25] MEDS: ZINC SULFATE 220 MG CAPSULE PO SCH (08:27)
[2020-01-25] MEDS: CALCIUM 600MG + VIT D 400 IU TAB PO SCH (08:28)
[2020-01-25] MEDS: ESCITALOPRAM OXALATE 10 MG TAB PO SCH (08:29)
[2020-01-25] MEDS: ASPIRIN 81 MG ECTAB PO SCH (08:29)
[2020-01-25] MEDS: MULTIVITAMIN TAB PO SCH (08:29)
[2020-01-25] MEDS: lisinopriL 10 MG TAB PO SCH (08:30)
[2020-01-25] MEDS: PANTOprazole 40 MG TAB PO SCH (08:30)
--- NOTE | 2020-01-25 09:06 | XCELERA ---
[id number]
[2020-01-25 09:10] LABS: Appearance Urine Clear (Clear); Bilirubin Urine Negative (Negative); Blood Urine Negative (Negative); Color Urine Yellow; Glucose Urine UA Negative (Negative); Ketones Urine Negative (Negative); Leukocyte Esterase Urine Negative (Negative); Nitrite Urine Negative (Negative); Protein Urine Negative (Negative); Specific Gravity Urine 1.025 (1.000-1.030); Urobilinogen Urine Negative (Negative); pH Urine 6.5 (4.5-7.5)
[2020-01-25] MEDS: HEPARIN SODIUM/DEXTROSE 25,000 UNITS/500 ML BAG IV SCH (11:12)
[2020-01-25 11:21] LABS: Partial Thromboplastin Ratio 2.9
--- NOTE | 2020-01-25 13:02 | Cardiology Consultation ---
Date of Consultation January 25, 2020 Assessment & Plan (1) Syncope: Syncope was almost certainly secondary to pulmonary embolism. Although the mechanism can be acute hemodynamic compromise from pulmonary artery occlusion (saddle embolism) or right ventricular dysrhythmias from acute right heart overload, fortunately there is no evidence for either of these mechanisms in this situation (right heart appears benign on both chest CT and echocardiogram). A third mechanism of syncope in pulmonary embolism is vasovagal reflex, this would seem to be the most likely explanation for syncope in this patient. His ongoing bradycardia may also be vaguely mediated, he is not on any negative chronotropic medication. No specific treatment for his bradycardia necessary, as he has neither symptomatic nor hypotensive. Since there is no evidence of heart block, sinus pauses, or other pathologic rhythms, no further cardiac work-up is necessary at this time. (2) Coronary artery disease: As noted in past medical history, he had only minor/nonocclusive disease at the time of a catheterization several years after an LAD stent was placed. No evidence of myocardial ischemia presently, even in the context of acute pulmonary embolism. His CAD is followed by Dr. Alejandro as an outpatient. (3) Bilateral pulmonary embolism: Currently anticoagulated with heparin. Since his pulmonary embolism appears unprovoked, he will need long-term anticoagulation as well. (4) HTN (hypertension): Mild, with transient borderline hypotension yesterday. Given his bradycardia (presumably vagal) and variable BP, would not be overaggressive in treating his mild hypertension. History of Present Illness Reason for Consultation: Syncope Requesting Physician: Praneeth Espino MD Attending Physician: Jose Johnson DO History of Present Illness 80-year-old man with CAD admitted after syncopal event 01/24/2020 and found to have bilateral pulmonary emboli. 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 No seizures, loss of bowel/bladder control, or post episode confusion. No chest pain, dyspnea, or other cardiopulmonary symptoms before or after the syncopal episode, he only complained of a mild headache. ER evaluation showed only sinus bradycardia with no ST abnormalities, normal troponin, and CT of the chest which was positive for bilateral pulmonary emboli. Uneventful night, further cardiac enzymes negative, telemetry showed only sinus rhythm and sinus bradycardia with his heart rate initially 60s, then 50s, and now in the 40s. He had no complaint at the time of my evaluation. Allergies Allergy/AdvReac Type Severity Reaction Status Date / Time Sulfa (Sulfonamide Allergy Intermediate RASH Verified 01/24/20 12:42 Antibiotics) Home Medications Home Medications Medication Instructions Recorded Confirmed Type aspirin [Aspir-81] 81 mg PO DAILY 01/24/20 01/24/20 History atorvastatin 40 mg PO HS 01/24/20 01/24/20 History calcium carbonate-vitamin D3 1 tab PO DAILY 01/24/20 01/24/20 History [Calcium 600 + D(3)] escitalopram oxalate 10 mg PO DAILY 01/24/20 01/24/20 History lisinopril 10 mg PO DAILY 01/24/20 01/24/20 History multivitamin 1 tab PO DAILY 01/24/20 01/24/20 History omeprazole 20 mg PO DAILY 01/24/20 01/24/20 History potassium gluconate 595 mg PO DAILY 01/24/20 01/24/20 History zinc 50 mg PO DAILY 01/24/20 01/24/20 History Patient History Medical History Benign prostatic hyperplasia Coronary artery disease GERD (gastroesophageal reflux disease) HTN (hypertension) Surgical History (Updated 01/25/20 @ 12:54 by Adryan Grady MD) History of cardiac cath (2003) Minor/nonocclusive disease, mid LAD stent (placed 1999) patent History of placement of stent in LAD coronary artery (1999) S/P TURP Social History Smoking Status: Former smoker Smoking End Date: 30 yrs ago; Hx Alcohol Use: Yes Alcohol type: beer Hx Substance Use: No Preferred Language: Greek Communication Ability: Effective Senior Office Support Assistant Sosa Required: No Beliefs That Will Affect Care: None Current Living Situation: Spouse Other Information That Helps Us Care for You: No Feels Safe at Home: Yes Safety Concerns: Feels Safe At This Time Review of Systems Constitutional: no fever, no chills, no fatigue, no weight loss and no weight gain Eyes: no problem reported Ear, Nose, Mouth, Throat: no problem reported Respiratory: no cough and no dyspnea Cardiovascular: as per Subjective / HPI Gastrointestinal: + abdominal pain; no nausea, no vomiting and no change in stools Musculoskeletal: no myalgia Integumentary: no rash and no new lesions Neurologic: + syncope; no falls Psychiatric: no problem reported Hematologic / Lymphatic: no easy bleeding and no easy bruising Physical Exam Physical Exam: Elderly white male appears comfortable. Afebrile. Mildly hypertensive, pulse 48 and regular, respirations 18. Skin: No unusual rash, systemic lesion, or ecchymoses. HEENT: benign. Neck: Jugular venous pulse normal. No carotid bruits. Lungs: Clear and equal breath sounds bilaterally. Cardiac: Regular bradycardic rhythm with normal S1 and S2 (pulmonic sound not increased), 2/6 basal systolic ejection murmur heard at the right and left upper sternal borders, nonradiating. No diastolic murmur or gallop. Abdomen: Soft nontender no organomegaly, masses, or bruits. Extremities: No edema, brisk radial and posterior tibial pulses. Good capillary refill. Neurologic: Normal affect and conversation, grossly nonfocal. Results & Data ([facility]) Vital Signs (Past 12 Hours) Vital Signs Temp Pulse Pulse Pulse Resp BP BP 01/25/20 11:38 99.0 F 48 L 18 150/87 H 01/25/20 08:00 53 L 01/25/20 07:58 98.8 F 50 L 18 147/80 H 01/25/20 03:36 99.0 F 57 L 16 126/66 Pulse Ox 01/25/20 11:38 97 01/25/20 08:00 01/25/20 07:58 96 01/25/20 03:36 93 Laboratory Results Troponin negative x3. Normal electrolytes, BUN 14, creatinine 1.08. D-dimer 28,800. Diagnostic Findings Chest CT with bilateral lower lobe segmental and subsegmental pulmonary emboli. No evidence of right heart strain. Lower extremity venous Doppler negative. Echocardiogram with normal systolic function, moderate LVH, mild mitral regurgitation. Right heart was unremarkable. ECG on admission showed sinus bradycardia and was otherwise unremarkable. Compared with 07/05/2010 ECG, no significant change. PG Care Time/CCT Total # of Minutes Spent Total Time Spent with Patient: Total time spent is greater than 50% in coordination of care (as documented) at patient's floor/unit and/or counseling patient: Coding Level of Care Code 88773 Initial Inpt Care Lvl 3 Diagnoses Syncope R55 Syncope type: unspecified Coronary artery disease I25.10 Bilateral pulmonary embolism I26.99 HTN (hypertension) I10 Hypertension type: unspecified (1) Syncope Syncope type: unspecified Qualified Code(s): R55 - Syncope and collapse (2) HTN (hypertension) Hypertension type: unspecified Qualified Code(s): I10 - Essential (primary) hypertension
--- NOTE | 2020-01-25 16:10 | Hospitalist Progress Note ---
Date of Service January 25, 2020 Assessment & Plan (1) Syncope: per cardiology, most likely etiology is vasovagal episode with bilateral PE will treat the PE with Xarelto has bradycardia but no pauses, no AV block thus not the source, plus he is asymptomatic from the bradycardia normal echocardiogram, no valve disease no electrolyte abnormalities, no infection no neurological deficits thus no suspicion for stroke plan to discharge to home tomorrow if he would have further syncope then could consider loop recorder as outpatient (2) Bilateral pulmonary embolism: segmental and subsegmental PE in the lower lobes bilaterally no evidence of DVT no evidence of malignancy in chest or abdomen/pelvis on CT scan vitals stable, no chest pain, no hypoxia heparin drip, change to Xarelto 15mg BID starting this evening Xarelto 15mg BID x 21 days then transition to 20mg daily (3) Coronary artery disease: Continue ASA 81mg PO daily, Lisinopril 10mg PO daily, Atorvastatin 40mg PO daily (4) HTN (hypertension): Continue his routine medications lisinopril 10mg PO daily (5) GERD (gastroesophageal reflux disease): Continue omeprazole 20mg PO daily or hospital formulary equivalent (6) DVT prophylaxis: Xarelto Admission and Anticipated Discharge Date Admission Date: January 24, 2020 Anticipated date of discharge: 01/26/20 Subjective patient had a syncopal episode while standing in his yard he fell on grass, no injuries he was unconscious for 30 seconds, he had no confusion afterwards he has never had this before no chest pain, no dyspnea, no palpitations HR has been in the high 40's to 60, no pauses, no AV block echo with preserved EF, no valve disease CTA chest with bilateral PE, most likely cause of PE discussed with Dr. Grady updated the patient's at the bedside discussed switching to Xarelto from heparin drip, he agrees will plan for discharge tomorrow Review of Systems Review of Systems: All systems reviewed & are unremarkable except as noted in Subjective Physical Exam 2 Constitutional: WD/WN, vitals as above Eyes: PERRL, conjunctivae normal, anicteric sclerae ENMT: external ear and nose normal, oropharynx normal Neck: trachea midline, no thyromegaly Respiratory: normal respiratory effort, lungs clear to auscultation Cardiovascular: Rate/Rhythm: regular rhythm and + bradycardic Heart Sounds: normal S1 and normal S2; no murmur Vessels: no JVD Extremities: normal capillary refill; no edema Gastrointestinal (Abdomen): normal bowel sounds, soft, nontender, no hepatosplenomegaly Musculoskeletal: no cyanosis or clubbing, extremities motor strength 5/5 Skin: no rashes, warm and dry Neurologic: patellar DTR's 2+ bilat, sensation intact and PERRL, EOMI, accommodation nl, no face palsy, no dysarthria Psychiatric: A+Ox3, euthymic affect Lymphatic: no cervical or axillary lymphadenopathy Results & Data Results & Data ([facility]) Vital Signs (Past 12 Hours) Vital Signs Temp Pulse Pulse Resp BP BP Pulse Ox 01/25/20 15:30 55 L 01/25/20 15:01 37.0 C 51 L 19 136/86 94 01/25/20 11:38 37.2 C 48 L 18 150/87 H 97 01/25/20 08:00 53 L 01/25/20 07:58 37.1 C 50 L 18 147/80 H 96 Laboratory Results Laboratory Results - last 24 hr 01/25/20 01/25/20 01/25/20 03:45 03:45 03:54 WBC 6.36 RBC 4.10 L Hgb 12.9 L Hct 38.7 L MCV 94.4 MCH 31.5 MCHC 33.3 RDW Std Deviation 46.8 H RDW Coeff of Pedro 13.6 Plt Count 172 MPV 9.9 Immature Gran % (Auto) 0.2 Neut % (Auto) 52.5 Lymph % (Auto) 35.1 [place] % (Auto) 7.5 Eos % (Auto) 4.4 Baso % (Auto) 0.3 Neut # (Auto) 3.34 Lymph # (Auto) 2.23 [place] # (Auto) 0.48 Eos # (Auto) 0.28 Baso # (Auto) 0.02 Immature Gran # (Auto) 0.01 APTT 82.3 H* PTT Ratio 2.9 Sodium 137 Potassium 3.6 D Chloride 106 Carbon Dioxide 28 Anion Gap 3.0 BUN 14 Creatinine 1.08 Est Cr Clr Drug Dosing 65.3 Est GFR ( Amer) 75.8 Est GFR (Non-Af Amer) 65.4 BUN/Creatinine Ratio 13.0 Glucose 97 Calcium 8.4 L Troponin I < 0.015 Urine Color Urine Appearance Urine pH Ur Specific [place] Urine Protein Urine Glucose (UA) Urine Ketones Urine Blood Urine Nitrite Urine Bilirubin Urine Urobilinogen Ur Leukocyte Esterase 01/25/20 01/25/20 01/25/20 08:30 10:49 17:32 WBC RBC Hgb Hct MCV MCH MCHC RDW Std Deviation RDW Coeff of Pedro Plt Count MPV Immature Gran % (Auto) Neut % (Auto) Lymph % (Auto) [place] % (Auto) Eos % (Auto) Baso % (Auto) Neut # (Auto) Lymph # (Auto) [place] # (Auto) Eos # (Auto) Baso # (Auto) Immature Gran # (Auto) APTT 80.0 H* 61.2 H* PTT Ratio 2.9 2.2 Sodium Potassium Chloride Carbon Dioxide Anion Gap BUN Creatinine Est Cr Clr Drug Dosing Est GFR ( Amer) Est GFR (Non-Af Amer) BUN/Creatinine Ratio Glucose Calcium Troponin I Urine Color Yellow Urine Appearance Clear Urine pH 6.5 Ur Specific [place] 1.025 Urine Protein Negative Urine Glucose (UA) Negative Urine Ketones Negative Urine Blood Negative Urine Nitrite Negative Urine Bilirubin Negative Urine Urobilinogen Negative Ur Leukocyte Esterase Negative Medications Administered Current Inpatient Medications Acetaminophen (Acetaminophen 325 Mg Tab) 650 mg PO Q4H PRN PRN Reason: Pain or Fever Stop: 02/23/20 16:47 Aspirin (Aspirin 81 Mg Ectab) 81 mg PO DAILY [facility] Stop: 02/24/20 08:59 Last Admin: 01/25/20 08:29 Dose: 81 mg Documented by: Atorvastatin Calcium (Atorvastatin 40 Mg Tab) 40 mg PO HS [facility] Stop: 02/23/20 20:59 Last Admin: 01/25/20 20:15 Dose: 40 mg Documented by: Escitalopram Oxalate (Escitalopram Oxalate 10 Mg Tab) 10 mg PO DAILY [facility] Stop: 02/24/20 08:59 Last Admin: 01/25/20 08:29 Dose: 10 mg Documented by: Lisinopril (Lisinopril 10 Mg Tab) 10 mg PO DAILY [facility] Stop: 02/24/20 08:59 Last Admin: 01/25/20 08:30 Dose: 10 mg Documented by: Multivitamins (Multivitamin Tab) 1 tab PO DAILY [facility] Stop: 02/24/20 08:59 Last Admin: 01/25/20 08:29 Dose: 1 tab Documented by: Multivitamins/Minerals (Calcium 600mg + Vit D 400 Iu Tab) 1 tab PO DAILY [facility] Stop: 02/24/20 08:59 Last Admin: 01/25/20 08:28 Dose: 1 tab Documented by: Pantoprazole Sodium (Pantoprazole 40 Mg Tab) 40 mg PO DAILY [facility]; Protocol Stop: 02/24/20 08:59 Last Admin: 01/25/20 08:30 Dose: 40 mg Documented by: Rivaroxaban (Rivaroxaban 15 Mg Tab) 15 mg PO BID [facility] Stop: 02/15/20 09:01 Last Admin: 01/25/20 20:15 Dose: 15 mg Documented by: Zinc Sulfate (Zinc Sulfate 220 Mg Capsule) 220 mg PO DAILY [facility] Stop: 02/24/20 08:59 Last Admin: 01/25/20 08:27 Dose: 220 mg Documented by: PG Care Time/CCT Total # of Minutes Spent Total Time Spent with Patient: Total time spent is greater than 50% in coordination of care (as documented) at patient's floor/unit and/or counseling patient: Coding Level of Care Code 62526 Subseq Hosp Care Lvl 2 Diagnoses Syncope R55 Syncope type: unspecified Bilateral pulmonary embolism I26.99 Coronary artery disease I25.10 HTN (hypertension) I10 Hypertension type: unspecified GERD (gastroesophageal reflux disease) K21.9 DVT prophylaxis Z29.9 (1) Syncope Syncope type: unspecified Qualified Code(s): R55 - Syncope and collapse (2) HTN (hypertension) Hypertension type: unspecified Qualified Code(s): I10 - Essential (primary) hypertension
[2020-01-25 18:05] LABS: Partial Thromboplastin Ratio 2.2
[2020-01-25 18:17] LABS: Partial Thromboplastin Time 61.2 Seconds (21.0-31.0)
[2020-01-25] MEDS: RIVAROXABAN 15 MG TAB PO SCH (20:15)
[2020-01-25] MEDS: ATORVASTATIN 40 MG TAB PO SCH (20:15)
[2020-01-26] MEDS: CALCIUM 600MG + VIT D 400 IU TAB PO SCH (07:59)
[2020-01-26] MEDS: ESCITALOPRAM OXALATE 10 MG TAB PO SCH (07:59)
[2020-01-26] MEDS: PANTOprazole 40 MG TAB PO SCH (07:59)
[2020-01-26] MEDS: ASPIRIN 81 MG ECTAB PO SCH (07:59)
[2020-01-26] MEDS: RIVAROXABAN 15 MG TAB PO SCH (08:00)
[2020-01-26] MEDS: ZINC SULFATE 220 MG CAPSULE PO SCH (08:00)
[2020-01-26] MEDS: lisinopriL 10 MG TAB PO SCH (08:00)
[2020-01-26] MEDS: MULTIVITAMIN TAB PO SCH (08:00)
--- NOTE | 2020-01-26 12:56 | Discharge Summary ---
Date of Service January 26, 2020 Admission HPI Per Admitting Provider Kyaw Londono is a 80-year-old male with known coronary artery disease s/p stent who presents to the ER with a syncopal event. 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 No prodromal symptoms. Never had a similar episode previously. Witness (story not first hand but told by his ), the patient looked up and then collapsed backwards. Loss of consciousness approx 30 seconds. No seizure-like activity. In the ER d-dimer was markedly elevated. Subsequent CT for PE showed b/l lower lobe segmental and subsegmental pulmonary emboli. He was started on IV heparin drip. He denies any recent weight loss. Colonoscopy every 5 years - thinks last one 3-4 years ago. Notable family history for his mother having pancreatic cancer and brother with esophageal cancer. Personal history - stent placed for angina many years ago, Stress echo 3 years ago Family history: Brother - CHF 79 years old. esophageal ca., Father - [place], Mother - breast and pancreatic ca., Sister - CAD, Sister - breast cancer. Principal Diagnosis Syncope, pulmonary embolism Discharge Exam Constitutional WD/WN, vitals as above Respiratory normal respiratory effort, lungs clear to auscultation Cardiovascular RRR, no murmur, no edema Gastrointestinal (Abdomen) normal bowel sounds, soft, nontender, no hepatosplenomegaly Musculoskeletal no cyanosis or clubbing, extremities motor strength 5/5 Skin no rashes, warm and dry Neurologic moves all extremities and awake Psychiatric A+Ox3, euthymic affect Discharge Data Allergies Allergy/AdvReac Type Severity Reaction Status Date / Time Sulfa (Sulfonamide Allergy Intermediate RASH Verified 01/24/20 12:42 Antibiotics) Consultations 01/24/20 13:55 ED Decision to Admit Stat 01/24/20 16:48 Consult Cardiology Routine Ordered Studies 01/24/20 12:05 CT cervical spine wo con Stat 01/24/20 12:06 CT head/brain wo con Stat 01/24/20 13:00 CT angio chest PE protocol Stat 01/24/20 15:10 US venous doppler LE BI Stat 01/25/20 07:00 CT abd pelvis IV con only Routine Hospital Course (1) Syncope: per cardiology, most likely etiology is vasovagal episode with bilateral PE will treat the PE with Eliquis has bradycardia but no pauses, no AV block thus not the source, plus he is as ymptomatic from the bradycardia normal echocardiogram, no valve disease no electrolyte abnormalities, no infection no neurological deficits thus no suspicion for stroke if he would have further syncope then could consider loop recorder as outpatient (2) Bilateral pulmonary embolism: segmental and subsegmental PE in the lower lobes bilaterally no evidence of DVT no evidence of malignancy in chest or abdomen/pelvis on CT scan vitals stable, no chest pain, no hypoxia heparin drip, change to Xarelto 15mg but insurance does not cover to switched to Eliquis today with discount card Eliquis 10mg BID x 7 days then transition to 5mg bid. (3) Coronary artery disease: Continue ASA 81mg PO daily, Lisinopril 10mg PO daily, Atorvastatin 40mg PO daily (4) HTN (hypertension): Continue his routine medications lisinopril 10mg PO daily (5) GERD (gastroesophageal reflux disease): Continue omeprazole 20mg PO daily or hospital formulary equivalent (6) DVT prophylaxis: Eliquis Total Time Total Time Spent Total Time Spent (In Minutes): greater than 30 minutes Discharge Plan Discharge Items Patient Disposition: Home - Self-Care Reason For Visit: SYNCOPE, BRADYCARDIA Discharge Diagnosis: Bilateral pulmonary emboli, unprovoked Syncope, likely vasovagal triggered by pulmonary emboli Condition on Discharge: Good Activity: Resume your previous activity Driving/Machine Use: Resume 1 day after discharge Weightbearing: Full weightbearing Non-emergency contact: Primary Care Provider Call non-emergency contact if: you have any medication questions and your symptoms worsen Follow-up/Referrals: Valentin Freitas, [Primary Care Provider] - (one week) Diet: Heart Healthy Addtl Attending Provider Instructions: Medications: - ELIQUIS: 10mg twice a day for 7 days then 5mg twice a day Syncope, bilateral pulmonary emboli evaluated by cardiology, most likely explanation for passing out was the pulmonary emboli clots are segmental and subsegmental, not very large treated with heparin drip, change to Eliquis 10mg twice a day for 7 days then reduce to 5mg twice a day will need to be on Eliquis for at least 6-12 months no signs of stroke, echocardiogram shows preserved function, no valve disorders on telemetry, your heart rate is 50's sinus, no long pauses or evidence of heart block if you would have further episodes of syncope once back home then the next course of action would be a loop recorder to capture any type of arrhythmia follow up with Dr. Freitas in one week Pending Studies at Discharge: No Stand-Alone Forms: [facility], Smoking Cessation Medications and DC Order Prescriptions: New Eliquis 5 mg tablet 10 mg PO BID 7 Days Qty: 28 RF: 0 Eliquis 5 mg tablet 5 mg PO BID Qty: 60 RF: 3 Continued multivitamin Tablet 1 tab PO DAILY RF: 0 atorvastatin 40 mg tablet 40 mg PO HS RF: 0 aspirin [Aspir-81] 81 mg Tablet,Delayed Release (Dr/Ec) 81 mg PO DAILY RF: 0 lisinopril 10 mg tablet 10 mg PO DAILY RF: 0 omeprazole 20 mg capsule,delayed release(DR/EC) 20 mg PO DAILY RF: 0 zinc 50 mg Tablet 50 mg PO DAILY RF: 0 escitalopram oxalate 10 mg tablet 10 mg PO DAILY RF: 0 calcium carbonate-vitamin D3 [Calcium 600 + D(3)] 600 mg(1,500mg) -400 unit Tablet 1 tab PO DAILY RF: 0 potassium gluconate 595 mg (99 mg) Tablet 595 mg PO DAILY RF: 0 Discharge Orders: Discharge Order (Routine); Ordered 01/26/20 Ordered By: Jose Johnson Admission Data Admit Date/Time: 01/24/20 16:42 Attending Provider: Jose Johnson Admit Provider: Praneeth Espino Primary Care Provider: Valentin Freitas Other Providers: Praneeth Espino ; Vance Alejandro Other Interventions: Discharge Summary Assessment (RN) Last Done: 01/26/20 13:29 Supervising Physician Co-Signing Physician Notes Patient seen and examined within 24 hours of discharge. I agree with the discharge summary by Crystal CLARK. I have reviewed the chart including labs, imaging and plans for discharge. patient doing well, no further syncope, HR in the 40's but no symptoms, it is sinus bradycardia issue with cost of Xarelto, will change to Eliquis 10mg BID x 7 days then 5mg BID, needed to get copay card for discount - Bilateral subsegmental PE, unprovoked, causing syncopal episode at home treated with heparin drip, changed to Xarelto 15mg BID however, insurance will not cover Xarelto, can use Eliquis but will need copay card for discount discharge home on Eliquis 10mg BID x 7 days then 5mg BID will need 6-12 months of anticoagulation, follow up with PCP - Syncope: if he has further episodes at home would consider Loop recorder to look for pauses or AV block Coding Level of Care Code D/C Day Management >30 mins Diagnoses Syncope R55 Syncope type: unspecified Bilateral pulmonary embolism I26.99 Coronary artery disease I25.10 HTN (hypertension) I10 Hypertension type: unspecified GERD (gastroesophageal reflux disease) K21.9 DVT prophylaxis Z29.9
[2020-01-26] MEDS ORDERED: APIXABAN 5 MG TABLET PO SCH ×2 (21:00)
== END 2020-01-26 14:46 | disposition home or self-care (01) | DRG 176 ==
LOC: ED 11:29 → 2S 15:37 → INTOOBSV 16:42 → 2S 16:42 → SUATTDRO 16:42

== ENCOUNTER 2020-06-04 17:57 | Observation (INO) ==
--- NOTE | 2020-06-04 18:27 | Emergency Department Note ---
History of Present Illness General Chief complaint: Shortness of Breath/Dyspnea Stated complaint: SOB, CHEST PAIN, DOC REF'D Time Seen by Provider: 06/04/20 18:05 Source: patient History of Present Illness Provider complaint: Shortness of breath and chest pain Onset (ago): week(s) Location: chest Radiation: non-radiation Pain Consistency: + intermittent Maximum Pain Intensity: 1 Quality: + sharp Relieved By: + other (Coughing up phlegm) Associated symptoms: + chest pain, + cough and + shortness of breath; no fev er/chills, no headaches, no malaise and no nausea/vomiting This is a 80-year-old male who presents with shortness of breath and chest discomfort. The patient states he has had chest discomfort since his EGD which occurred about a week ago. He states that the discomfort is a sharp pain. It is associated with a productive cough with clear phlegm. He states that today he coughed up quite a bit of phlegm and the chest pain seemed to have resolved. He states he has had a cardiac stent in the past but had chest pain which was very different at that time. He had pain in his left side rating to his arms and this felt nothing like what he had back then. He is here because he saw his doctor who is mostly concerned about his shortness of breath. The patient has been short of breath for about 2 weeks. He states that it seemed to get worse after the EGD. The patient states that just walking a short distance will make him short of breath. He denies any swelling or pain to his legs but states that he has had pain and swelling to the ulnar aspect of the right arm where he had an IV placed for his EGD. The patient was on Eliquis for PE but no longer takes it. He stopped it last week before his EGD and was told he did not need to restart it. He denies any leg swelling or pain. He did have a negative Covid test on the . He denies any loss of taste or smell, fever, diarrhea, muscle aches, abdominal pain, vomiting or urinary symptoms. He also states he has a history of slow heartbeat when he sleeps according to his heart monitor that he previously had in January of last year after he passed out. He has not had any syncopal episodes recently. Home Medications Medication Instructions Recorded Confirmed Type atorvastatin 40 mg PO QAM 01/24/20 06/04/20 History calcium carbonate-vitamin D3 1 tab PO QAM 01/24/20 06/04/20 History [Calcium 600 + D(3)] escitalopram oxalate 10 mg PO QAM 01/24/20 06/04/20 History lisinopril 10 mg PO QAM 01/24/20 06/04/20 History multivitamin 1 tab PO QAM 01/24/20 06/04/20 History omeprazole 40 mg PO QAM 01/24/20 06/04/20 History potassium gluconate 595 mg PO QAM 01/24/20 06/04/20 History zinc 50 mg PO QAM 01/24/20 06/04/20 History aspirin 81 mg PO QAM 06/04/20 06/04/20 History Allergies Allergy/AdvReac Type Severity Reaction Status Date / Time Sulfa (Sulfonamide Allergy Intermediate RASH Verified 06/04/20 19:02 Antibiotics) latex Allergy Redness of Verified 06/04/20 19:02 Skin niacin Allergy itching Verified 06/04/20 19:02 [From Niaspan Extended-Release] Past Med/Surg History Medical History Benign prostatic hyperplasia Bradycardia currently wearing Holter monitor (ordered by PCP) - last day will be 05/28 Coronary artery disease GERD (gastroesophageal reflux disease) History of pulmonary embolism Dx fall 2019 - unk etiology - treated with Eliquis [place] (hard of hearing) [place] HTN (hypertension) Hyperlipidemia Surgical History H/O heart artery stent x 1 (1999) History of cardiac cath (2003) Minor/nonocclusive disease, mid LAD stent (placed 1999) patent 1999 - [place] - [place] - 1 stent 2004 - [place] - no stents/angioplasty History of cataract surgery History of colonoscopy History of esophagogastroduodenoscopy (EGD) History of placement of stent in LAD coronary artery (1999) S/P TURP Family History Brother Esophageal cancer Other No family history of adverse response to anesthesia Social History Smoking Status: Never smoker Second Hand Exposure: No; Hx Alcohol Use: No Hx Substance Use: No Preferred Language: Lao Communication Ability: Effective Exterior Work Helper Required: No Beliefs That Will Affect Care: None Current Living Situation: Spouse Feels Safe at Home: Yes Assistive Devices: Glasses and Hearing Aid - Bilateral Review of Systems See HPI for pertinent positives & negatives. and A total of 10 systems reviewed and were otherwise negative Physical Exam Vital Signs Vital Signs - 24 hr 06/04/20 18:01 06/04/20 18:29 06/04/20 18:36 Temperature 36.8 C Temperature Source Temporal Artery Scan Pulse Rate 103 H 70 Pulse Rate from SpO2 Sensor 70 Respiratory Rate 16 19 Blood Pressure 180/124 H 166/109 H Blood Pressure Mean 142 128 Pulse Oximetry 98 95 94 Oxygen Delivery Method Room Air Room Air Sepsis Recent Fever Within 48 Hours No Sepsis New/Unexplained Change in Mental Status N/A Sepsis Action Taken by Nursing No Action Required 06/04/20 18:40 06/04/20 18:41 06/04/20 18:48 Temperature Temperature Source Pulse Rate 73 74 67 Pulse Rate from SpO2 Sensor 73 67 Respiratory Rate 18 20 24 Blood Pressure 166/109 H 166/109 H Blood Pressure Mean 128 128 Pulse Oximetry 95 96 95 Oxygen Delivery Method Room Air Room Air Sepsis Recent Fever Within 48 Hours Sepsis New/Unexplained Change in Mental Status Sepsis Action Taken by Nursing 06/04/20 19:00 06/04/20 19:30 06/04/20 20:01 Temperature Temperature Source Pulse Rate 66 65 64 Pulse Rate from SpO2 Sensor 66 66 64 Respiratory Rate 24 23 23 Blood Pressure 174/104 H 168/108 H 181/104 H Blood Pressure Mean 127 128 129 Pulse Oximetry 96 95 95 Oxygen Delivery Method Room Air Room Air Room Air Sepsis Recent Fever Within 48 Hours Sepsis New/Unexplained Change in Mental Status Sepsis Action Taken by Nursing 06/04/20 20:15 06/04/20 20:30 06/04/20 21:31 Temperature Temperature Source Pulse Rate 74 59 L 60 Pulse Rate from SpO2 Sensor 74 63 65 Respiratory Rate 14 15 21 Blood Pressure 188/110 H 172/103 H Blood Pressure Mean 136 126 Pulse Oximetry 93 94 94 Oxygen Delivery Method Room Air Room Air Sepsis Recent Fever Within 48 Hours Sepsis New/Unexplained Change in Mental Status Sepsis Action Taken by Nursing 06/04/20 22:00 06/04/20 22:30 06/04/20 22:37 Temperature Temperature Source Pulse Rate 73 67 74 Pulse Rate from SpO2 Sensor 73 67 73 Respiratory Rate 21 19 22 Blood Pressure 181/108 H 176/107 H 163/109 H Blood Pressure Mean 132 130 127 Pulse Oximetry 94 95 94 Oxygen Delivery Method Room Air Room Air Room Air Sepsis Recent Fever Within 48 Hours Sepsis New/Unexplained Change in Mental Status Sepsis Action Taken by Nursing Constitutional: Vital signs reviewed. Eyes: Pupils are equal round reactive to light. Conjunctiva are noninjected. ENT: Pharynx is clear without erythema or exudate. Mucous membranes are moist. Neck supple without meningeal signs. Respiratory: Clear to auscultation bilaterally. Breath sounds are equal bilaterally. Cardiovascular: Regular rate and rhythm. No rubs or gallops. GI: Soft, nondistended and nontender. Bowel sounds are present. Musculoskeletal: No peripheral edema. No lower extremity tenderness. Mild swelling to the ulnar aspect of the right upper extremity without increased warmth or erythema. No palpable cord. Integumentary: No cyanosis. or jaundice. Neurological: The patient is awake and alert. No focal deficits. Psychiatric: Normal affect. Not anxious appearing. Course Administered Medications Heparin Sodium/Dextrose (Heparin Sodium/Dextrose) 25,000 units in 500 mls @ 27 mls/hr IV .[id number] [facility]; Protocol Stop: 07/04/20 20:44 Last Admin: 06/04/20 22:34 Dose: 1,350 units/hr, 27 mls/hr Documented by: [id number] Cosigned by: [id number] Discontinued Medications Heparin Sodium (Porcine) (Heparin Sod (Porcine) 1000 Unit/Ml 10 Ml Vial) Confirm Administered Dose 10,000 units .ROUTE .STK-MED ONE Stop: 06/04/20 22:29 Last Admin: 06/04/20 22:33 Dose: 3,000 units Documented by: [id number] Cosigned by: [id number] Heparin Sodium/Dextrose (Heparin Iv Standard With Bolus) 1 ea IV NOW STA; Protocol Stop: 06/04/20 20:42 Last Admin: 06/04/20 22:34 Dose: Not Given Documented by: [id number] Ioversol (Optiray 320 125ml) 119 ml IV ONCE ONE Stop: 06/04/20 20:16 Last Admin: 06/04/20 20:16 Dose: 119 ml Documented by: [id number] Critical Care Time Critical Care Time: Yes Total Critical Care Time: 40 I have personally spent approximately 40 minutes of critical care time in the direct management of this patient. This includes bedside care, interpretation of diagnostic studies, and testing, discussion with consultants, patient, and family members, and other required patient management activities. These minutes are in excess of all separately billable procedures. Medical Decision Making Differential Diagnosis DVT, PE, pleurisy, pneumonia, COVID-19, [place] Medical Records Attestation: I reviewed the patient's medical records. I did perform a limited focused review of portions of the patient's old chart on the electronic medical record. The patient had an EGD on May 30 which demonstrated no acute abnormality. Home Medications Current Medication List: was personally reviewed by me Laboratory Data Attestation: I reviewed the patient's lab results. Result diagrams: 06/04/20 18:36 06/04/20 18:36 Lab Results 06/04/20 06/04/20 06/04/20 Range/Units 18:36 18:36 18:36 WBC 5.46 (4.8-10.8) K/uL RBC 4.43 L (4.7-6.1) M/uL Hgb 14.3 (14.0-18.0) g/dL Hct 42.2 (42-52) % MCV 95.3 (80-100) fL MCH 32.3 (25-34) pg MCHC 33.9 (32-36) g/dL RDW Std Deviation 44.7 (36.4-46.3) fL RDW Coeff of Pedro 12.9 (11.5-14.5) % Plt Count 138 (130-400) K/uL MPV 9.9 (7.4-10.4) fL Immature Gran % (Auto) 0.2 % Neut % (Auto) 55.1 % Lymph % (Auto) 33.5 % Gilliam % (Auto) 8.6 % Eos % (Auto) 2.4 % Baso % (Auto) 0.2 % Neut # (Auto) 3.01 (1.4-6.5) K/uL Lymph # (Auto) 1.83 (1.2-3.4) K/uL Gilliam # (Auto) 0.47 (0.11-0.59) K/uL Eos # (Auto) 0.13 (0-0.5) K/uL Baso # (Auto) 0.01 (0-0.2) K/uL Immature Gran # (Auto) 0.01 (0.00-0.02) K/uL PT 11.4 (9.0-12.0) Seconds INR 1.1 (0.9-1.1) APTT 27.9 (21.0-31.0) Seconds PTT Ratio 1.0 Sodium 135 L (136-145) mmol/L Potassium 4.2 (3.5-5.1) mmol/L Chloride 103 (98-107) mmol/L Carbon Dioxide 27 (21-32) mmol/L Anion Gap 6.0 (3-11) BUN 12 (7-18) mg/dl Creatinine 0.97 (0.6-1.4) mg/dl Est Cr Clr Drug Dosing 63.8 ml/min Est GFR ( Amer) 85.7 Est GFR (Non-Af Amer) 73.9 BUN/Creatinine Ratio 12.1 (10-20) Glucose 97 (70-99) mg/dl Calcium 8.8 (8.5-10.1) mg/dl Total Bilirubin 0.4 (0.2-1) mg/dl AST 15 (15-37) U/L ALT 29 (12-78) U/L Alkaline Phosphatase 114 (45-117) U/L Troponin I < 0.015 (0-0.045) ng/ml Total Protein 7.3 (6.4-8.2) gm/dl Albumin 3.2 L (3.4-5.0) gm/dl Globulin 4.1 H (2.5-4.0) gm/dl Albumin/Globulin Ratio 0.8 L (0.9-2) COVID-19 Eval Order SARS-CoV-2 (PCR) (Negative) Influenza Type A (PCR) (Neg) Influenza Type B (PCR) (Neg) RSV (RT-PCR) (Neg) 06/04/20 06/04/20 Range/Units 18:36 18:36 WBC (4.8-10.8) K/uL RBC (4.7-6.1) M/uL Hgb (14.0-18.0) g/dL Hct (42-52) % MCV (80-100) fL MCH (25-34) pg MCHC (32-36) g/dL RDW Std Deviation (36.4-46.3) fL RDW Coeff of Pedro (11.5-14.5) % Plt Count (130-400) K/uL MPV (7.4-10.4) fL Immature Gran % (Auto) % Neut % (Auto) % Lymph % (Auto) % Gilliam % (Auto) % Eos % (Auto) % Baso % (Auto) % Neut # (Auto) (1.4-6.5) K/uL Lymph # (Auto) (1.2-3.4) K/uL Gilliam # (Auto) (0.11-0.59) K/uL Eos # (Auto) (0-0.5) K/uL Baso # (Auto) (0-0.2) K/uL Immature Gran # (Auto) (0.00-0.02) K/uL PT (9.0-12.0) Seconds INR (0.9-1.1) APTT (21.0-31.0) Seconds PTT Ratio Sodium (136-145) mmol/L Potassium (3.5-5.1) mmol/L Chloride (98-107) mmol/L Carbon Dioxide (21-32) mmol/L Anion Gap (3-11) BUN (7-18) mg/dl Creatinine (0.6-1.4) mg/dl Est Cr Clr Drug Dosing ml/min Est GFR ( Amer) Est GFR (Non-Af Amer) BUN/Creatinine Ratio (10-20) Glucose (70-99) mg/dl Calcium (8.5-10.1) mg/dl Total Bilirubin (0.2-1) mg/dl AST (15-37) U/L ALT (12-78) U/L Alkaline Phosphatase (45-117) U/L Troponin I (0-0.045) ng/ml Total Protein (6.4-8.2) gm/dl Albumin (3.4-5.0) gm/dl Globulin (2.5-4.0) gm/dl Albumin/Globulin Ratio (0.9-2) COVID-19 Eval Order CovFluRsv at [facility] SARS-CoV-2 (PCR) POSITIVE A* (Negative) Influenza Type A (PCR) Negative (Neg) Influenza Type B (PCR) Negative (Neg) RSV (RT-PCR) Negative (Neg) Imaging Data Radiologist's Impression: SINGLE VIEW CHEST CLINICAL HISTORY: Dyspnea. FINDINGS: An AP, portable, upright chest radiograph is compared to chest x-ray and chest CT dated 01/24/2020. The heart is enlarged. There is mild pulmonary vascular congestion. There is mild elevation of left hemidiaphragm with mild bibasilar airspace opacities. This likely represents scarring/atelectasis. No large pleural effusion or pneumothorax is seen. The skeletal structures are osteopenic. The bony thorax is grossly intact. IMPRESSION: 1. Cardiomegaly with mild pulmonary vascular congestion. 2. Bibasilar airspace opacities likely represent atelectasis. Clinical correlation will required. ACT 112: Negative or not required by law. Electronically signed by: Zak López M.D. 06/04/2020 7:21 PM Dictated: 06/04/201919 Transcribed: 06/04/201919 CT ANGIOGRAM OF THE CHEST CLINICAL HISTORY: Atypical chest pain. COMPARISON STUDY: Chest x-ray dated 06/04/2020. Chest CT dated 01/24/2020 and 11/02/2009. TECHNIQUE: Following the IV administration of 119 cc of Optiray 320, CT angiogram of the chest was performed from the upper abdomen to the thoracic inlet utilizing the pulmonary embolus protocol. Images are reviewed in the axial, sagittal, and coronal planes. 3-D MIPS images are created and assessed. IV contrast was administered without complication. A dose lowering technique was utilized adhering to the principles of ALARA. CT DOSE: 587.22 mGycm FINDINGS: Thyroid: Imaged portions of the thyroid gland are normal in size and attenuation. There are scattered subcentimeter low-attenuation nodules. Thoracic aorta: The thoracic aorta is normal in caliber and demonstrates standard 3-vessel arch anatomy. No dissection is seen. Pulmonary vasculature: The pulmonary trunk is normal in caliber. There is thrombus within the distal right main pulmonary artery. This extends into the right upper and right lower lobar pulmonary arteries into segmental and subsegmental branches. There is segmental and subsegmental pulmonary embolus within the right middle lobe pulmonary artery. There is thrombus within the distal left main pulmonary artery. This extends into the left lower lobe and lingular pulmonary arteries into segmental and subsegmental branches. Heart: The heart is enlarged and without pericardial effusion. The coronary arteries are densely calcified. Lungs and pleural spaces: Evaluation of lung parenchyma is degraded by motion artifact. The trachea and central airways are clear. There are subpleural opacities in the right middle lobe seen on image #123, likely representing developing infarct. No pleural effusion is identified. Atelectasis is seen at the lung bases. An 8 mm focus of pleural-based nodularity in the right middle lobe seen on image #174 is unchanged from 2010 and of doubtful significance. Mild patchy airspace opacities are present in the upper lobes bilaterally. Mediastinum: There is no mediastinal lymphadenopathy. Юлия: Clear. Axillae: There is no axillary lymphadenopathy. Upper abdomen: There is a small hiatal hernia. Calcified granulomas are noted in the spleen. Skeletal structures: The skeletal structures are osteopenic. There are chronic superior endplate compression from his of T3, T4, and T6. No lytic or blastic bony lesions are seen. IMPRESSION: 1. Extensive bilateral pulmonary emboli. 2. Cardiomegaly. 3. Subpleural consolidation in the anterior right middle lobe likely represents a developing pulmonary infarct. 4. Mild patchy airspace opacities in the upper lobes are indeterminant and could represent small infarcts and/or a mild infectious/inflammatory pneumonitis. Clinical correlation will be required. 5. No pleural effusion is seen. 6. Additional findings as above. ACT 112: Negative or not required by law. Electronically signed by: Zak López M.D. 06/04/2020 8:33 PM Dictated: 06/04/202024 Transcribed: 06/04/202024 ULTRASOUND RIGHT UPPER EXTREMITY VENOUS CLINICAL HISTORY: Right arm pain. Pulmonary embolus. COMPARISON STUDY: No priors.. TECHNIQUE: Real-time, grayscale, and color Doppler sonography of the deep veins of the right upper extremity is performed. Compression and augmentation were utilized. FINDINGS: There is no sonographic evidence of deep venous thrombosis identified in the right upper extremity. The right internal jugular, axillary, and brachial veins are patent and normally compressible. Normal venous waveforms and augmentation are seen within the right subclavian vein. There is extensive superficial venous thrombus seen within the right basilic vein. This extends from the proximal upper extremity to the mid forearm and is occlusive. The cephalic vein appears clear. The visualized radial and ulnar veins are patent. IMPRESSION: 1. There is no sonographic evidence of deep venous thrombosis identified in the right upper extremity. 2. Extensive occlusive superficial venous thrombus is seen within the right basilic vein. ACT 112: Negative or not required by law. Electronically signed by: Zak López M.D. 06/04/2020 9:02 PM Dictated: 06/04/202100 Transcribed: 06/04/202100 ECG Data Attestation: I personally reviewed and interpreted this ECG as follows: Indication: + SOB/dyspnea Rate (beats per minute): 67 Rhythm: + normal sinus ECG [place]: + Normal ECG ST segments: no ST elevation ECG Findings: + PACs MDM Narrative I did evaluate the patient as noted above. The patient is presenting with chest pain and shortness of breath. He is mostly concerned about his dyspnea on exertion. He is not hypoxemic here but is tachypneic. He did have a history of PE but stopped taking his Eliquis last week before his EGD and states that he was told he no longer needs to be on it. He also complains of right arm pain after IV placement. He had a negative Covid test about a week ago but still has a cough. He was placed in respiratory isolation. COVID-19 and influenza testing was obtained. He is positive for COVID-19. IV access was established. I did place an order for continuous cardiac monitoring. The monitor showed normal sinus rhythm at a rate of 65 bpm. I did order and personally review the patient's 12-lead EKG as described above. He has no evidence of acute ischemia. I did order and personally reviewed the images of the patient's chest x-ray as described above. He has atelectasis versus pneumonia bilaterally. I did order and review the patient's blood work as noted in the electronic medical record. CBC is unremarkable without leukocytosis or anemia. Electrolytes are unremarkable. He has a negative troponin. I did order a CT angiogram of the chest. I did review the images myself as well as the radiology report as described above. He has extensive pulmonary emboli bilaterally with what appears to be an anterior right middle lobe developing infarction. He also has patchy airspace opacities consistent with COVID-19 pneumonia. Ultrasound of the right upper quadrant demonstrates a superficial thrombosis in the right basilic vein. No evidence of DVT. I did discuss the test results with the patient. He understands the risks and benefits of anticoagulation. I did start him on heparin with a bolus and a continuous drip. The case was discussed with the correctional case records supervisor and the hospitalist was informed. Impression & Plan Pulmonary embolism and infarction, Pneumonia due to 2019 novel coronavirus, Acute basilic vein thrombosis Discharge Plan Visit Data Chief Complaint: Shortness of Breath/Dyspnea Stated Complaint: SOB, CHEST PAIN, DOC REF'D ED Provider: Alex García Discharge Problem: Pulmonary embolism and infarction, Pneumonia due to 2019 novel coronavirus, Acute basilic vein thrombosis Patient Disposition: Admitted As Inpatient Discharge Instructions Kavita/Other Patient Handouts: 2019-nCoV Interventions: ED Discharge Assessment Last Done: 06/04/20 22:43 Forms Stand Alone Forms: My [employer] Prescriptions Prescriptions: No Action multivitamin Tablet 1 tab PO QAM RF: 0 atorvastatin 40 mg tablet 40 mg PO QAM RF: 0 lisinopril 10 mg tablet 10 mg PO QAM RF: 0 omeprazole 20 mg capsule,delayed release(DR/EC) 40 mg PO QAM RF: 0 zinc 50 mg Tablet 50 mg PO QAM RF: 0 escitalopram oxalate 10 mg tablet 10 mg PO QAM RF: 0 calcium carbonate-vitamin D3 [Calcium 600 + D(3)] 600 mg(1,500mg) -400 unit Tablet 1 tab PO QAM RF: 0 potassium gluconate 595 mg (99 mg) Tablet 595 mg PO QAM RF: 0 aspirin 81 mg Tablet,Delayed Release (Dr/Ec) 81 mg PO QAM RF: 0 Referrals Referrals: Valentin Freitas DO [Primary Care Provider] - Discharge Problem: Acute basilic vein thrombosis Qualifiers: Laterality: right Qualified Code(s): I82.611 - Acute embolism and thrombosis of superficial veins of right upper extremity
[2020-06-04 18:54] LABS: Basophils # (auto) 0.01 K/uL (0-0.2); Basophils % (auto) 0.2 %; Eosinophils # (auto) 0.13 K/uL (0-0.5); Eosinophils % (auto) 2.4 %; Hematocrit (blood only) 42.2 % (42-52); Hemoglobin 14.3 g/dL (14.0-18.0); Immature Granulocytes # (auto) 0.01 K/uL (0.00-0.02); Immature Granulocytes % (auto) 0.2 %; Lymphocytes # (auto) 1.83 K/uL (1.2-3.4); Lymphocytes % (auto) 33.5 %; Mean Corpuscular Hemoglobin 32.3 pg (25-34); Mean Corpuscular Hgb Conc 33.9 g/dL (32-36); Mean Corpuscular Volume 95.3 fL (80-100); Mean Platelet Volume 9.9 fL (7.4-10.4); Monocytes # (auto) 0.47 K/uL (0.11-0.59); Monocytes % (auto) 8.6 %; Neutrophils # (auto) 3.01 K/uL (1.4-6.5); Neutrophils % (auto) 55.1 %; Platelet Count 138 K/uL (130-400); RDW Coefficient of Variation 12.9 % (11.5-14.5); RDW Standard Deviation 44.7 fL (36.4-46.3); Red Blood Count 4.43 M/uL (4.7-6.1); White Blood Count 5.46 K/uL (4.8-10.8)
[2020-06-04 19:04] LABS: INR 1.1 (0.9-1.1); Partial Thromboplastin Time 27.9 Seconds (21.0-31.0); Prothrombin Time 11.4 Seconds (9.0-12.0)
[2020-06-04 19:11] LABS: Alanine Aminotransferase 29 U/L (12-78); Albumin Level 3.2 gm/dl (3.4-5.0); Aspartate Aminotransferase 15 U/L (15-37); BUN Creatinine Ratio 12.1 (10-20); Blood Urea Nitrogen 12 mg/dl (7-18); Calcium 8.8 mg/dl (8.5-10.1); Carbon Dioxide 27 mmol/L (21-32); Chloride 103 mmol/L (98-107); Creatinine Clr Calc Pharmacy 63.8 ml/min; Est GFR (African American) 85.7; Est GFR (Non-African American) 73.9; Glucose 97 mg/dl (70-99); Potassium 4.2 mmol/L (3.5-5.1); Sodium 135 mmol/L (136-145)
[2020-06-04 19:16] LABS: Albumin Globulin Ratio 0.8 (0.9-2); Alkaline Phosphatase 114 U/L (45-117); Bilirubin,Total 0.4 mg/dl (0.2-1); Globulin 4.1 gm/dl (2.5-4.0); Total Protein 7.3 gm/dl (6.4-8.2); Troponin I < 0.015 ng/ml (0-0.045)
--- NOTE | 2020-06-04 19:23 | XRay Report ---
SINGLE VIEW CHEST CLINICAL HISTORY: Dyspnea. FINDINGS: An AP, portable, upright chest radiograph is compared to chest x-ray and chest CT dated 01/07. The heart is enlarged. There is mild pulmonary vascular congestion. There is mild elevation o f left hemidiaphragm with mild bibasilar airspace opacities. This likely represents scarring/atelecta sis. No large pleural effusion or pneumothorax is seen. The skeletal structures are osteopenic. The b ginger thorax is grossly intact. IMPRESSION: 1. Cardiomegaly with mild pulmonary vascular congestion. 2. Bibasilar airspace opacities likely represent atelectasis. Clinical correlation will required. ACT 112: Negative or not required by law. Electronically signed by: Zak López M.D. 06/04/2020 7:21 PM
[2020-06-04 19:29] LABS: Influenza A virus by PCR Negative (Neg); Influenza B virus by PCR Negative (Neg); RSV by PCR Negative (Neg)
[2020-06-04 19:37] LABS: SARS CoV2 RNA(COVID-19) InHosp POSITIVE (Negative)
[2020-06-04] MEDS ORDERED: OPTIRAY 320 125ml IV ONE (20:15)
--- NOTE | 2020-06-04 20:34 | CT Scan Report ---
CT ANGIOGRAM OF THE CHEST CLINICAL HISTORY: Atypical chest pain. COMPARISON STUDY: Chest x-ray dated 06/04/2020. Chest CT dated 01/24/2020 and 11/02/2009. TECHNIQUE: Following the IV administration of 119 cc of Optiray 320, CT angiogram of the chest was pe rformed from the upper abdomen to the thoracic inlet utilizing the pulmonary embolus protocol. Images are reviewed in the axial, sagittal, and coronal planes. 3-D MIPS images are created and assessed. I V contrast was administered without complication. A dose lowering technique was utilized adhering to the principles of ALARA. CT DOSE: 587.22 mGycm FINDINGS: Thyroid: Imaged portions of the thyroid gland are normal in size and attenuation. There are scattered subcentimeter low-attenuation nodules. Thoracic aorta: The thoracic aorta is normal in caliber and demonstrates standard 3-vessel arch anato my. No dissection is seen. Pulmonary vasculature: The pulmonary trunk is normal in caliber. There is thrombus within the distal right main pulmonary artery. This extends into the right upper and right lower lobar pulmonary arteri es into segmental and subsegmental branches. There is segmental and subsegmental pulmonary embolus wi thin the right middle lobe pulmonary artery. There is thrombus within the distal left main pulmonary artery. This extends into the left lower lobe and lingular pulmonary arteries into segmental and subs egmental branches. Heart: The heart is enlarged and without pericardial effusion. The coronary arteries are densely calc ified. Lungs and pleural spaces: Evaluation of lung parenchyma is degraded by motion artifact. The trachea a nd central airways are clear. There are subpleural opacities in the right middle lobe seen on image # 123, likely representing developing infarct. No pleural effusion is identified. Atelectasis is seen a t the lung bases. An 8 mm focus of pleural-based nodularity in the right middle lobe seen on image #1 74 is unchanged from 2010 and of doubtful significance. Mild patchy airspace opacities are present in the upper lobes bilaterally. Mediastinum: There is no mediastinal lymphadenopathy. Юлия: Clear. Axillae: There is no axillary lymphadenopathy. Upper abdomen: There is a small hiatal hernia. Calcified granulomas are noted in the spleen. Skeletal structures: The skeletal structures are osteopenic. There are chronic superior endplate comp ression from his of T3, T4, and T6. No lytic or blastic bony lesions are seen. IMPRESSION: 1. Extensive bilateral pulmonary emboli. 2. Cardiomegaly. 3. Subpleural consolidation in the anterior right middle lobe likely represents a developing pulmonar y infarct. 4. Mild patchy airspace opacities in the upper lobes are indeterminant and could represent small infa rcts and/or a mild infectious/inflammatory pneumonitis. Clinical correlation will be required. 5. No pleural effusion is seen. 6. Additional findings as above. ACT 112: Negative or not required by law. Electronically signed by: Zak López M.D. 06/04/2020 8:33 PM
[2020-06-04] MEDS ORDERED: HEPARIN SODIUM/DEXTROSE 25,000 UNITS/500 ML BAG IV SCH (20:45)
--- NOTE | 2020-06-04 21:03 | Ultrasound Report ---
ULTRASOUND RIGHT UPPER EXTREMITY VENOUS CLINICAL HISTORY: Right arm pain. Pulmonary embolus. COMPARISON STUDY: No priors.. TECHNIQUE: Real-time, grayscale, and color Doppler sonography of the deep veins of the right upper ex tremity is performed. Compression and augmentation were utilized. FINDINGS: There is no sonographic evidence of deep venous thrombosis identified in the right upper ex tremity. The right internal jugular, axillary, and brachial veins are patent and normally compressibl e. Normal venous waveforms and augmentation are seen within the right subclavian vein. There is exten sive superficial venous thrombus seen within the right basilic vein. This extends from the proximal u pper extremity to the mid forearm and is occlusive. The cephalic vein appears clear. The visualized r adial and ulnar veins are patent. IMPRESSION: 1. There is no sonographic evidence of deep venous thrombosis identified in the right upper extremity . 2. Extensive occlusive superficial venous thrombus is seen within the right basilic vein. ACT 112: Negative or not required by law. Electronically signed by: Zak López M.D. 06/04/2020 9:02 PM
[2020-06-04] MEDS ORDERED: HEPARIN SOD (PORCINE) 1000 UNIT/ML 10 ML VIAL ONE (22:28)
--- NOTE | 2020-06-04 22:57 | History & Physical Report ---
Date of Service June 04, 2020 Assessment & Plan (1) Pulmonary embolism and infarction: Mr. Londono is a 80 yo gentleman with a PMHx of bilateral pulmonary emboli (diagnosed 01/2020) s/p 4 months of anticoagulation with Eliquis who presented with progressive dyspnea on exertion, cough and weakness. On admission, he was found to have extensive bilateral pulmonary emboli and he tested positive for COVID 19. 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 Recommend patient be UTD on all cancer screenings. - as for the explanation of his recurrent PE - it is possible patient has an underlying genetic hypercoagulable disorder. It is also possible concurrent COVID-19 diagnosis has made him hypercoagulable (and/or unknown malignancy). Patient did stop Eliquis about 11 days prior to discovering new emboli - it is difficult to know whether this represent a treatment failure of Eliquis, as he was having mild URI symptoms prior to his EDG (when he was still taking the Eliquis) (2) COVID-19: - respiratory Biofire + on admission - of note, patient tested negative on pre-operative testing on 05/26/20 - patient did have one recorded pulse O2 reading of 93% on admission while breathing on room air, technically this qualifies him as having severe disease (although this is also in the setting of concurrent bilateral extensive PEs) - Chest CTA showed mild patchy airspace opacities in the upper lobes- not a characteristic appearance of COVID. More likely atelectasis. incentive spirometry ordered. - I will order one dose of dexamethasone on admission and schedule for next few days. Consider discontinuing if patient's O2 sat remain > 94% on room - I will hold off on remdesivir and convalescent plasma at this time - although these can be reconsidered in the morning - zinc sulfate 220, mg PO daily - COVID isolation precautions - negative presure room (3) Acute basilic vein thrombosis: - noted on R UE venous doppler - patient had IV placed in R UE duing recent EGD - on heparin as above - limb restriction placed (4) Coronary artery disease: - history of stent placement x 1 in 1999 at [facility] - continue ASA and statin (5) HTN (hypertension): - continue home dose lisinopril (6) GERD (gastroesophageal reflux disease): - continue home dose omeprazole - EGD from 05/30/20 showing normal anatomy (7) Depression: - continue home dose escitalopram Dispo: PCU/tele Diet: heart healthy DVT ppx: on heparin Code: Full, I discussed with patient History of Present Illness Primary Care Provider: Valentin Freitas DO Mr. Londono is a 80 yo gentleman with a PMHx of bilateral pulmonary emboli (01/2020), CAD s/p stent placement (1999), and prostate cancer s/p TURP, who was referred to the ED by his primary care physician for evaluation of progressive dyspnea on exertion and R arm swelling. Mr. Londono developed upper respiratory symptoms on 05/23/20 - at the time, his was apparently experiencing similar symptoms. He was scheduled to have an EGD on 05/30/20 for evaluation of worsening acid reflux symptoms- his preoperative COVID 19 testing returned negative on 05/26/20. Ultimately, the EDG showed normal findings. In the days following his EGD, he became dyspneic with only minimal exertion (such as walking from his bedroom to the kitchen, a notable change from his baseline). He also complained of weaknesss, a productive cough, and was febrile up to 100.9 on two occasions. In January 2020, Mr. Obando was diagnosed with bilateral lower lobe pulmonary emboli. His venous doppler at the time was negative for acute DVT. He was placed on Eliquis for a period of 4 months. Mr. Londono held his Eliquis 4-5 days prior to his recent EGD, after which it was discontinued entirely. Other than his EDG on 05/30/20, he denies any recent surgeries. He denies any prolonged periods of immobility. He denies any trauma to the R UE (other than having an IV placed for his EGD). He denies any swelling of his bilateral LE. No loss of taste or smell. He has had mild chest discomfort since the EGD. He has no underlying lung disease. He is not immunocompromised. No family history of blood clots or known clotting disorders. Social Hx: Prior tobacco smoker - quit 40 years ago. 25 pack year history. In the ED: He was febrile, mildly tachycardic at 103 bpm, BP elevated to 180/124, RR 15, satting 94% on room air. WBC normal, Hgb normal. Coags normal. Na mildly low at 133; electrolytes otherwise WNL. Cr normal. Trop < 0.015. Respiratory Bio fire showing + COVID 19, neg RSV, neg Influenza. CXR showing evidence of pulmonary vascular congestion, bibasilar airspace opacities, thought to represent atelectasis. Venous doppler of right UE showing no DVT, but extensive occlusive superficial venous thrombus within the R basilic vein. Chest CTA showing extensive b/l pulmonary emboli, a subpleural consolidation in the anterior right middle lobe, resembling a developing infarction, no pleural effusions. EKG showing NSR with occasional PACs. No evidence of right heart strain. Allergies Allergy/AdvReac Type Severity Reaction Status Date / Time Sulfa (Sulfonamide Allergy Intermediate RASH Verified 06/04/20 19:02 Antibiotics) latex Allergy Redness of Verified 06/04/20 19:02 Skin niacin Allergy itching Verified 06/04/20 19:02 [From Niaspan Extended-Release] Home Medications Medication Instructions Recorded Confirmed Type atorvastatin 40 mg PO QAM 01/24/20 06/04/20 History calcium carbonate-vitamin D3 1 tab PO QAM 01/24/20 06/04/20 History [Calcium 600 + D(3)] escitalopram oxalate 10 mg PO QAM 01/24/20 06/04/20 History lisinopril 10 mg PO QAM 01/24/20 06/04/20 History multivitamin 1 tab PO QAM 01/24/20 06/04/20 History omeprazole 40 mg PO QAM 01/24/20 06/04/20 History potassium gluconate 595 mg PO QAM 01/24/20 06/04/20 History zinc 50 mg PO QAM 01/24/20 06/04/20 History aspirin 81 mg PO QAM 06/04/20 06/04/20 History apixaban [Eliquis] 5 mg PO BID #60 tab 06/05/20 Rx Past Med/Surg History Medical History Benign prostatic hyperplasia Bradycardia currently wearing Holter monitor (ordered by PCP) - last day will be 05/28 Coronary artery disease GERD (gastroesophageal reflux disease) History of pulmonary embolism Dx fall 2019 - unk etiology - treated with Eliquis SYCUAN (hard of hearing) BL FIERRO HTN (hypertension) Hyperlipidemia Surgical History H/O heart artery stent x 1 (1999) History of cardiac cath (2003) Minor/nonocclusive disease, mid LAD stent (placed 1999) patent 1999 - [place] - [place] - 1 stent 2004 - [place] - no stents/angioplasty History of cataract surgery History of colonoscopy History of esophagogastroduodenoscopy (EGD) History of placement of stent in LAD coronary artery (1999) S/P TURP Family History Brother Esophageal cancer Other No family history of adverse response to anesthesia Social History Smoking Status: Never smoker Second Hand Exposure: No; Hx Alcohol Use: No Hx Substance Use: No Preferred Language: Albanian Communication Ability: Effective Scrub Wheel Operator Required: No Beliefs That Will Affect Care: None Current Living Situation: Spouse Feels Safe at Home: Yes Assistive Devices: Glasses, Hearing Aid - Bilateral and Oxygen - Continuous Review of Systems Respiratory: + cough Cardiovascular: + chest pain and + dyspnea on exertion Physical Exam Constitutional: WD/WN, vitals as above cooperative; no acute distress Eyes: + anicteric sclerae ENMT: external ear and nose normal, oropharynx normal Neck: normal visual inspection and trachea midline Respiratory: normal respiratory effort, lungs clear to auscultation Auscultation: no crackles, no rales, no wheezes and no pleural rub Cardiovascular: RRR, no murmur, no edema Heart Sounds: normal S1 and normal S2 Vessels: radial pulses present Extremities: no pedal edema + swelling and firmness on Right UE, site of prevous IV placement, distal to antecubital fossa Gastrointestinal (Abdomen): normal bowel sounds, soft, nontender, no hepatosplenomegaly Skin: no rashes, warm and dry Neurologic: moves all extremities Psychiatric: A+Ox3, euthymic affect Results & Data Results & Data ([facility]) Vital Signs (Past 12 Hours) Vital Signs Temp Pulse Resp BP Pulse Ox 06/04/20 22:37 74 22 163/109 H 94 06/04/20 22:30 67 19 176/107 H 95 06/04/20 22:00 73 21 181/108 H 94 06/04/20 21:31 60 21 172/103 H 94 06/04/20 20:30 59 L 15 188/110 H 94 06/04/20 20:15 74 14 93 06/04/20 20:01 64 23 181/104 H 95 06/04/20 19:30 65 23 168/108 H 95 06/04/20 19:00 66 24 174/104 H 96 06/04/20 18:48 67 24 166/109 H 95 06/04/20 18:41 74 20 96 06/04/20 18:40 73 18 166/109 H 95 06/04/20 18:36 70 19 166/109 H 94 06/04/20 18:29 95 06/04/20 18:01 36.8 C 103 H 16 180/124 H 98 Code Status & VTE Plan VTE Prophylaxis Plan VTE Prophylaxis will be ordered: Yes Supervising Physician Co-Signing Physician Notes Attending addendum: I have physically seen this patient, have supervised the medical residents activities, and agree with the H&P unless as otherwise noted. Assessment and Plan: Bilateral pulmonary emboli/right middle lobe pulmonary infarction- The patient will be admitted to telemetry for serial cardiac enzymes, serial EKG's, cardiac rhythm monitoring and a 2-D echocardiogram with Dopplers. Right upper extremity superficial thrombus involving right basilic vein at site of previous IV Order bilateral venous Dopplers of lower extremities Admit on heparin drip with 3000 unit IV bolus and then per protocol Order hypercoagulable panel Consult hematology to give opinion regarding usage of Eliquis with noted history COVID-19 positive- Negative test on 05/26/2020. Transient hypoxia with 93% recorded on room air Dexamethasone 6 mg IV x1 tonight Question contribution of COVID-19 to pulmonary emboli, although timing seems to not necessarily match due to acuity. Zinc sulfate turn 20 mg p.o. daily Remainder of orders and notations as noted Resident Activity Tracking Resident Involvement: Resident Care Provided Care Provided: Adult Hospital Medicine (1) Acute basilic vein thrombosis Laterality: right Qualified Code(s): I82.611 - Acute embolism and thrombosis of superficial veins of right upper extremity (2) HTN (hypertension) Hypertension type: unspecified Qualified Code(s): I10 - Essential (primary) hypertension
[2020-06-04] MEDS: HEPARIN SODIUM/DEXTROSE 25,000 UNITS/500 ML BAG IV SCH ×2 (23:11→23:53)
[2020-06-04] MEDS ORDERED: lisinopril 10 MG TAB PO STA (23:11)
[2020-06-04] MEDS ORDERED: ONDANSETRON INJ 2 MG/ML 2 ML VIAL IV PRN (23:11)
[2020-06-04] MEDS ORDERED: POLYETHYLENE (MIRALAX) 17 GM PACK PO PRN (23:11)
[2020-06-04] MEDS ORDERED: ACETAMINOPHEN 325 MG TAB PO PRN (23:11)
[2020-06-04] MEDS ORDERED: DEXAMETHASONE SOD INJ 4 MG/ML VIAL IV STA (23:11)
[2020-06-04 23:53] LABS: NT Pro B Type Natriuretic Pept 30 pg/ml (0-1800)
[2020-06-05 04:47] LABS: Basophils # (auto) 0.01 K/uL (0-0.2); Basophils % (auto) 0.2 %; Eosinophils # (auto) 0.02 K/uL (0-0.5); Eosinophils % (auto) 0.4 %; Hematocrit (blood only) 43.6 % (42-52); Hemoglobin 14.8 g/dL (14.0-18.0); Immature Granulocytes # (auto) 0.01 K/uL (0.00-0.02); Immature Granulocytes % (auto) 0.2 %; Lymphocytes # (auto) 1.21 K/uL (1.2-3.4); Lymphocytes % (auto) 22.8 %; Mean Corpuscular Hemoglobin 32.2 pg (25-34); Mean Corpuscular Hgb Conc 33.9 g/dL (32-36); Mean Corpuscular Volume 94.8 fL (80-100); Monocytes % (auto) 3.8 %; Neutrophils # (auto) 3.86 K/uL (1.4-6.5); Neutrophils % (auto) 72.6 %; Platelet Count 139 K/uL (130-400); RDW Coefficient of Variation 12.9 % (11.5-14.5); RDW Standard Deviation 44.6 fL (36.4-46.3); White Blood Count 5.31 K/uL (4.8-10.8)
[2020-06-05 05:04] LABS: Calcium 8.6 mg/dl (8.5-10.1); Creatinine Clr Calc Pharmacy 71.2 ml/min; Est GFR (African American) 86.8; Est GFR (Non-African American) 74.9; Potassium 4.4 mmol/L (3.5-5.1)
[2020-06-05 05:14] LABS: Partial Thromboplastin Ratio 3.9
[2020-06-05 05:33] LABS: Partial Thromboplastin Time 109.6 Seconds (21.0-31.0)
--- NOTE | 2020-06-05 08:12 | Hospitalist Progress Note ---
Date of Service June 05, 2020 Assessment & Plan (1) Pulmonary embolism and infarction: Mr. Londono is a 80 yo gentleman with a PMHx of bilateral pulmonary emboli (diagnosed 01/2020) s/p 4 months of anticoagulation with Eliquis who presented with progressive dyspnea on exertion, cough and weakness. On admission, he was found to have extensive bilateral pulmonary emboli and he tested positive for COVID 19. - Chest CTA on admission showing extensive bilateral pulmonary emboli (more extensive compared to Chest CTA in 01/2020) - subpleural consolidation in the anterior right middle lobe likely represents a developing pulmonary infarct - no evidence of right heart strain on admission EKG, troponin undetectable, hemodynamically stable - PESI score 89, Class III, intermediate risk - Heparin bolus + drip ordered on admission - patient was started on Eliquis in 01/2020 after his first pulmonary emboli were discovered - he was treated appropriately for a period of 4 months (discontinued around 05/26/20) - Patient did stop Eliquis about 11 days prior to discovering new emboli - (2) COVID-19: - respiratory Biofire + on admission - of note, patient tested negative on pre-operative testing on 05/26/20 - patient did have one recorded pulse O2 reading of 93% on admission while breathing on room air, technically this qualifies him as having severe disease (although this is also in the setting of concurrent bilateral extensive PEs) - Chest CTA showed mild patchy airspace opacities in the upper lobes- not a characteristic appearance of COVID. More likely atelectasis. incentive spirometry ordered. - dexamethasone - admission team decided not to order remdesivir and convalescent plasma at this time - although these can be reconsidered in the morning - zinc sulfate 220, mg PO daily - COVID isolation precautions (3) Acute basilic vein thrombosis: - noted on R UE venous doppler - patient had IV placed in R UE duing recent EGD - on heparin as above - limb restriction placed (4) Coronary artery disease: - history of stent placement x 1 in 1999 at [facility] - continue ASA and statin (5) HTN (hypertension): - continue home dose lisinopril (6) GERD (gastroesophageal reflux disease): - continue home dose omeprazole - EGD from 05/30/20 showing normal anatomy (7) Depression: - continue home dose escitalopram Dispo: PCU/tele Diet: heart healthy DVT ppx: on heparin Code: Full, I discussed with patient Admission and Anticipated Discharge Date Admission Date: June 04, 2020 Results & Data Results & Data ([facility]) Vital Signs (Past 12 Hours) Vital Signs Temp Pulse Pulse Resp BP BP Pulse Ox 06/05/20 07:57 53 L 06/05/20 07:49 97.7 F 45 L 18 137/79 96 06/05/20 04:00 98.1 F 48 L 18 143/89 H 92 06/05/20 01:21 93 06/05/20 00:25 171/94 H 06/04/20 23:58 99.1 F 71 18 211/102 H 93 06/04/20 22:37 74 22 163/109 H 94 06/04/20 22:30 67 19 176/107 H 95 06/04/20 22:00 73 21 181/108 H 94 06/04/20 21:31 60 21 172/103 H 94 06/04/20 20:30 59 L 15 188/110 H 94 06/04/20 20:15 74 14 93 Pulse Ox 06/05/20 07:57 06/05/20 07:49 06/05/20 04:00 06/05/20 01:21 06/05/20 00:25 06/04/20 23:58 93 06/04/20 22:37 06/04/20 22:30 06/04/20 22:00 06/04/20 21:31 06/04/20 20:30 06/04/20 20:15 PG Care Time/CCT Total # of Minutes Spent Total Time Spent with Patient: Total time spent is greater than 50% in coordination of care (as documented) at patient's floor/unit and/or counseling patient: Coding Diagnoses Pulmonary embolism and infarction I26.99 COVID-19 U07.1 Acute basilic vein thrombosis I82.611 Laterality: right Coronary artery disease I25.10 HTN (hypertension) I10 Hypertension type: unspecified GERD (gastroesophageal reflux disease) K21.9 Depression F32.9 (1) Acute basilic vein thrombosis Laterality: right Qualified Code(s): I82.611 - Acute embolism and thrombosis of superficial veins of right upper extremity (2) HTN (hypertension) Hypertension type: unspecified Qualified Code(s): I10 - Essential (primary) hypertension
[2020-06-05] MEDS ORDERED: lisinopril 10 MG TAB PO SCH (09:00)
[2020-06-05] MEDS ORDERED: ESCITALOPRAM OXALATE 10 MG TAB PO SCH (09:00)
[2020-06-05] MEDS ORDERED: ATORVASTATIN 40 MG TAB PO SCH (09:00)
[2020-06-05] MEDS ORDERED: DEXAMETHASONE SOD PHOSPHATE 6 MG in SYRINGE 0 ML IV SCH (09:00)
[2020-06-05] MEDS ORDERED: ZINC SULFATE 220 MG CAPSULE PO SCH (09:00)
[2020-06-05] MEDS ORDERED: ASPIRIN 81 MG ECTAB PO SCH (09:00)
--- NOTE | 2020-06-05 10:13 | Electrocardiogram Report ---
Test Reason : Blood Pressure : / mmHG Vent. Rate : 058 BPM Atrial Rate : 058 BPM P-R Int : 176 ms QRS Dur : 092 ms QT Int : 418 ms P-R-T Axes : 080 010 035 degrees QTc Int : 410 ms Sinus bradycardia Otherwise normal ECG When compared with ECG of 04-JUN-2020 18:26, (unconfirmed) Premature atrial complexes are no longer Present Confirmed by Kurt Noble ([id number]) on 06/05/2020 10:13:36 AM Referred By: Valentin Freitas Confirmed By:Carlos Alberto Noble
--- NOTE | 2020-06-05 10:14 | Electrocardiogram Report ---
Test Reason : Blood Pressure : / mmHG Vent. Rate : 067 BPM Atrial Rate : 067 BPM P-R Int : 172 ms QRS Dur : 110 ms QT Int : 406 ms P-R-T Axes : 019 028 044 degrees QTc Int : 429 ms Sinus rhythm with marked sinus arrhythmia with Premature atrial complexes Otherwise normal ECG When compared with ECG of 24-JAN-2020 12:47, Premature atrial complexes are now Present Minimal criteria for Inferior infarct are no longer Present Confirmed by Kurt Noble ([id number]) on 06/05/2020 10:13:51 AM Referred By: Valentin Freitas Confirmed By:Carlos Alberto Noble
[2020-06-05 13:09] LABS: Partial Thromboplastin Ratio 3.5
[2020-06-05 13:28] LABS: Partial Thromboplastin Time 98.7 Seconds (21.0-31.0)
[2020-06-05] MEDS ORDERED: APIXABAN 5 MG TABLET PO ONE (14:39)
--- NOTE | 2020-06-05 14:51 | Discharge Summary ---
Date of Service June 05, 2020 Admission HPI Per Admitting Provider Mr. Londono is a 80 yo gentleman with a PMHx of bilateral pulmonary emboli (01/2020), CAD s/p stent placement (year 1999), and prostate cancer s/p TURP, who was referred to the ED by his primary care physician for evaluation of progressive dyspnea on exertion and R arm swelling. Mr. Londono developed upper respiratory symptoms on 05/23/20 - at the time, his was apparently experiencing similar symptoms. He was scheduled to have an EGD on 05/30/20 for evaluation of worsening acid reflux symptoms- his preoperative COVID 19 testing returned negative on 05/26/20. Ultimately, the EDG showed normal findings. In the days following his EGD, he became dyspneic with only minimal exertion (such as walking from his bedroom to the kitchen, a notable change from his baseline). He also complained of weaknesss, a productive cough, and was febrile up to 100.9 on two occasions. In January 2020, Mr. Obando was diagnosed with bilateral lower lobe pulmonary emboli. His venous doppler at the time was negative for acute DVT. He was placed on Eliquis for a period of 4 months. Mr. Londono held his Eliquis 4-5 days prior to his recent EGD, after which it was discontinued entirely. Other than his EDG on 05/30/20, he denies any recent surgeries. He denies any prolonged periods of immobility. He denies any trauma to the R UE (other than having an IV placed for his EGD). He denies any swelling of his bilateral LE. No loss of taste or smell. He has had mild chest discomfort since the EGD. He has no underlying lung disease. He is not immunocompromised. No family history of blood clots or known clotting disorders. Social Hx: Prior tobacco smoker - quit 40 years ago. 25 pack year history. In the ED: He was febrile, mildly tachycardic at 103 bpm, BP elevated to 180/124, RR 15, satting 94% on room air. WBC normal, Hgb normal. Coags normal. Na mildly low at 133; electrolytes otherwise WNL. Cr normal. Trop < 0.015. Respiratory Bio fire showing + COVID 19, neg RSV, neg Influenza. CXR showing evidence of pulmonary vascular congestion, bibasilar airspace opacities, thought to represent atelectasis. Venous doppler of right UE showing no DVT, but extensive occlusive superficial venous thrombus within the R basilic vein. Chest CTA showing extensive b/l pulmonary emboli, a subpleural consolidation in the anterior right middle lobe, resembling a developing infarction, no pleural effusions. EKG showing NSR with occasional PACs. No evidence of right heart strain. Principal Diagnosis pulmonary embolism, possible pulmonary infarction covid 19 diagnosis, covid pneumonia was ruled out as no low oxygen level, imaging changes felt secondary to pulmonary injury from pulmonary embolism Discharge Data Allergies Allergy/AdvReac Type Severity Reaction Status Date / Time Sulfa (Sulfonamide Allergy Intermediate RASH Verified 06/04/20 19:02 Antibiotics) latex Allergy Redness of Verified 06/04/20 19:02 Skin niacin Allergy itching Verified 06/04/20 19:02 [From [facility] Extended-Release] Consultations 06/04/20 20:41 ED Decision to Admit Stat Ordered Studies 06/04/20 18:15 US venous doppler UE RT Stat 06/04/20 19:28 CT angio chest PE protocol Stat Hospital Course (1) Pulmonary embolism and infarction: Mr. Londono is a 80 yo gentleman with a PMHx of bilateral pulmonary emboli (diagnosed 01/2020) s/p 4 months of anticoagulation with Eliquis who presented with progressive dyspnea on exertion, cough and weakness. On admission, he was found to have extensive bilateral pulmonary emboli and he tested positive for COVID 19. - Chest CTA on admission showing extensive bilateral pulmonary emboli (more extensive compared to Chest CTA in 01/2020) - subpleural consolidation in the anterior right middle lobe likely represents a developing pulmonary infarct - no evidence of right heart strain on admission EKG, troponin undetectable, hemodynamically stable - PESI score 89, Class III, intermediate risk - Heparin bolus + drip ordered on admission - patient was started on Eliquis in 01/2020 after his first pulmonary emboli were discovered - he was treated appropriately for a period of 4 months (discontinued around 05/26/20) - Patient did stop Eliquis about 11 days prior to discovering new emboli - (2) COVID-19: - respiratory Biofire + on admission - of note, patient tested negative on pre-operative testing on 05/26/20 - patient did have one recorded pulse O2 reading of 93% on admission while breathing on room air, technically this qualifies him as having severe disease (although this is also in the setting of concurrent bilateral extensive PEs) - Chest CTA showed mild patchy airspace opacities in the upper lobes- not a characteristic appearance of COVID. More likely atelectasis. incentive spirometry ordered. - dexamethasone - admission team decided not to order remdesivir and convalescent plasma at this time - although these can be reconsidered in the morning - zinc sulfate 220, mg PO daily - COVID isolation precautions (3) Acute basilic vein thrombosis: - noted on R UE venous doppler - patient had IV placed in R UE duing recent EGD - on heparin as above - limb restriction placed (4) Coronary artery disease: - history of stent placement x 1 in 1999 at [facility] - continue ASA and statin (5) HTN (hypertension): - continue home dose lisinopril (6) GERD (gastroesophageal reflux disease): - continue home dose omeprazole - EGD from 05/30/20 showing normal anatomy (7) Depression: - continue home dose escitalopram Dispo: PCU/tele Diet: heart healthy DVT ppx: on heparin Code: Full, I discussed with patient Total Time Total Time Spent Total Time Spent (In Minutes): It required greater than 30 minutes to prepare this patient for discharge Discharge Plan Discharge Items Patient Disposition: Home - Self-Care Reason For Visit: PULMONARY EMBOLISM Discharge Diagnosis: pulmonary embolism, possible pulmonary infarction covid 19 diagnosis, covid pneumonia was ruled out as no low oxygen level, imaging changes felt secondary to pulmonary injury from pulmonary embolism Activity: Per Instructions section Non-emergency contact: Primary Care Provider Call non-emergency contact if: your symptoms worsen Follow-up/Referrals: Valentin Freitas, [Primary Care Provider] - Diet: Regular Addtl Attending Provider Instructions: please take you eliquis 10 mg twice a day for one week, you will be given an Rx for this but you may also use your 5mg to make up the 10 mg if you are up late take a second eliquis dose tonight, if you turn in early but rise early then instead do not take your Eliquis dose tonight but rather early tomorrow, I would say if you go to bed before 10 wait till early in the am for the second dose DR Freitas will be in touch with you for further outpt instructions, for now we will be continuing on the Eliquis after the loading week at 5mg twice a day I have included home isolation instructions for your + covid test, these will be after instructions on you anticoagulant Medication Instructions: Your condition is typically treated with an anticoagulant. Anticoagulants will thin your blood to help prevent new clots. * You should take her medication exactly as directed. * Never skip a dose. * Never take a double dose. If you miss a dose, take it as soon as you re member. Call your Primary Care doctor if you experience any of the following: * Swelling or Pain in your leg * Sudden, continuous pain deep in a muscle * Pain that worsens when you are active or when you stand still for a long time * Chest Pain * Sudden Shortness of Breath * Rapid or pounding heart beat * Fainting * Dizziness * Cough with blood or bloody sputum * Sweating more than normal * Bruises * Heavy or uncontrolled bleeding * Blood in your urine, stool or vomit * Black or tarry stools Caring for Your Self at Home: * Avoid sitting, standing or lying down for long periods without moving your legs and feet * When traveling by car, stop to get out and move around at least once every 3 hours * On long airplane, train or bus rides, get up and move around when possible * If you can't get up, wiggle your toes and tighten your calves to keep your blood moving ----- Home Isolation COVID-19 Instructions The following information about Home Isolation is from the CDC Website: https://www.cdc.gov/coronavirus/2019-ncov/hcp/npvzbggu-djmthqi-mpvelc.html Stay home except to get medical care People who are mildly ill with COVID-19 are able to isolate at home during their illness. You should restrict activities outside your home, except for getting medical care. Do not go to work, school, or public areas. Avoid using public transportation, ride-sharing, or taxis. Separate yourself from other people and animals in your home People: As much as possible, you should stay in a specific room and away from other people in your home. Also, you should use a separate bathroom, if available. Animals: You should restrict contact with pets and other animals while you are sick with COVID-19, just like you would around other people. Although there have not been reports of pets or other animals becoming sick with COVID-19, it is still recommended that people sick with COVID-19 limit contact with animals until more information is known about the virus. When possible, have another member of your household care for your animals while you are sick. If you are sick with COVID-19, avoid contact with your pet, including petting, snuggling, being kissed or licked, and sharing food. If you must care for your pet or be around animals while you are sick, wash your hands before and after you interact with pets and wear a face mask. Call ahead before visiting your doctor If you have a medical appointment, call the healthcare provider and tell them that you have or may have COVID-19. This will help the healthcare providers office take steps to keep other people from getting infected or exposed. Wear a face mask You should wear a face mask when you are around other people (e.g., sharing a room or vehicle) or pets and before you enter a healthcare providers office. If you are not able to wear a face mask (for example, because it causes trouble breathing), then people who live with you should not stay in the same room with you, or they should wear a face mask if they enter your room. Cover your coughs and sneezes Cover your mouth and nose with a tissue when you cough or sneeze. Throw used tissues in a lined trash can. Immediately wash your hands with soap and water for at least 20 seconds or, if soap and water are not available, clean your hands with an alcohol-based hand plastic extrusion operator that contains at least 60% alcohol. Clean your hands often Wash your hands often with soap and water for at least 20 seconds, especially after blowing your nose, coughing, or sneezing; going to the bathroom; and before eating or preparing food. If soap and water are not readily available, use an alcohol-based hand plastic extrusion operator with at least 60% alcohol, covering all surfaces of your hands and rubbing them together until they feel dry. Soap and water are the best option if hands are visibly dirty. Avoid touching your eyes, nose, and mouth with unwashed hands. Avoid sharing personal household items You should not share dishes, drinking glasses, cups, eating utensils, towels, or bedding with other people or pets in your home. After using these items, they should be washed thoroughly with soap and water. Clean all high-touch surfaces everyday High touch surfaces include counters, tabletops, doorknobs, bathroom fixtures, toilets, phones, keyboards, tablets, and bedside tables. Also, clean any surfaces that may have blood, stool, or body fluids on them. Use a household cleaning spray or wipe, according to the label instructions. Labels contain instructions for safe and effective use of the cleaning product including precautions you should take when applying the product, such as wearing gloves and making sure you have good ventilation during use of the product. Monitor your symptoms Seek prompt medical attention if your illness is worsening (e.g., difficulty breathing).Beforeseeking care, call your healthcare provider and tell them that you have, or are being evaluated for, COVID-19. Put on a face mask before you enter the facility. These steps will help the healthcare providers office to keep other people in the office or waiting room from getting infected or exposed. Ask your healthcare provider to call the local or [facility] health department. Persons who are placed under active monitoring or facilitated self- monitoring should follow instructions provided by their local health department or occupational health professionals, as appropriate. When working with your local health department check their available hours. If you have a medical emergency and need to call 911, notify the dispatch personnel that you have, or are being evaluated for COVID-19. If possible, put on a face mask before emergency medical services arrive. Discontinuing home isolation Patients with confirmed COVID-19 should remain under home isolation precautions until the risk of secondary transmission to others is thought to be low. The decision to discontinue home isolation precautions should be made on a [id number] basis, in consultation with healthcare providers and [facility] and local health departments. Pending Studies at Discharge: No Stand-Alone Forms: [facility] [place], Smoking Cessation Medications and DC Order Prescriptions: New Eliquis 5 mg tablet 5 mg PO BID Qty: 60 RF: 5 Continued multivitamin Tablet 1 tab PO QAM RF: 0 atorvastatin 40 mg tablet 40 mg PO QAM RF: 0 lisinopril 10 mg tablet 10 mg PO QAM RF: 0 omeprazole 20 mg capsule,delayed release(DR/EC) 40 mg PO QAM RF: 0 zinc 50 mg Tablet 50 mg PO QAM RF: 0 escitalopram oxalate 10 mg tablet 10 mg PO QAM RF: 0 calcium carbonate-vitamin D3 [Calcium 600 + D(3)] 600 mg(1,500mg) -400 unit T ablet 1 tab PO QAM RF: 0 potassium gluconate 595 mg (99 mg) Tablet 595 mg PO QAM RF: 0 aspirin 81 mg Tablet,Delayed Release (Dr/Ec) 81 mg PO QAM RF: 0 Discharge Orders: Discharge Order (Routine); Ordered 06/05/20 Ordered By: Alex Walls/Other Patient Handouts: Pulmonary Embolism Admission Data Admit Date/Time: 06/04/20 22:13 Attending Provider: Alex Spencer Admit Provider: Dana Nur Primary Care Provider: Valentin Freitas Other Providers: Matt Mcgovern Other Interventions: Discharge Summary Assessment (RN) Last Done: 06/05/20 15:01 Coding Level of Care Code D/C Day Management >30 mins Diagnoses Pulmonary embolism and infarction I26.99 COVID-19 U07.1 Acute basilic vein thrombosis I82.611 Laterality: right Coronary artery disease I25.10 HTN (hypertension) I10 Hypertension type: unspecified GERD (gastroesophageal reflux disease) K21.9 Depression F32.9
--- NOTE | 2020-06-05 16:24 | XCELERA ---
[id number]
[2020-06-05] MEDS ORDERED: DEXAMETHASONE SOD INJ 10 MG/ML VIAL IV SCH (21:00)
--- NOTE | 2020-06-06 05:08 | Billing Data ---
Date of Service June 06, 2020 Coding Level of Care Code 47328 Initial Inpt Care Lvl 3
== END 2020-06-05 16:59 | disposition home or self-care (01) ==
LOC: ED 17:57 → SUATTDRO 22:13 → INTOOBSV 22:13 → 2E 22:13

== ENCOUNTER 2024-06-07 10:57 | Observation (INO) ==
--- NOTE | 2024-06-07 11:50 | Emergency Department Note ---
Impression & Plan Hypersomnolence, Change in mental status ED Provider Note CHIEF COMPLAINT: Fatigue HISTORY OF PRESENT ILLNESS: This 84 year old male patient presents to the emergency department via private vehicle for evaluation of fatigue. Pt. has days where he is often very sleepy and difficult to arouse. This morning, he was difficult to wake up to go to the Coumadin clinic. While at the clinic, he was having trouble holding his arms up and answering questions appropriately. He eventually did wake up more and was at his baseline, but Coumadin clinic staff referred to the ED for further evaluation. Pt. does have history of CVA. He has been evaluated in the ED for these same symptoms in the past. He has had negative workups and PCP believes symptoms are related to his history of CVA, age, and deconditioning. Pt. denies chest pain, dyspnea, neurologic symptoms, headache, vision changes, or other concerning symptoms. Feels in his usual state of health at this time and would like to go home. History provided by: patient and family REVIEW OF SYSTEMS: A 10 system review of systems was performed with positives and pertinent negatives listed in the history of present illness. All other systems were reviewed and are negative. ALLERGIES: niacin, Sulfa, latex PHYSICAL EXAM: VITALS: Vitals are noted on the nurse's note and reviewed by myself. GENERAL: This is an 84 year old male, in no acute distress, nondiaphoretic, well-developed well-nourished. SKIN: The skin was without rashes, erythema, edema, or bruising. There is no tenting of the skin. Capillary refill less than 2 seconds. HEAD: Normocephalic atraumatic. EARS: External auditory canals clear, tympanic membranes pearly hough without erythema or effusion bilaterally. No hemotympanum. Negative almodovar sign EYES: Pupils equal round and reactive to light and accommodation. Conjunctivae without injection, sclerae without icterus. Extraocular movements intact. NOSE: Patent, turbinates without inflammation or discharge. No sinus tenderness. MOUTH: Mucous membranes moist. Tonsils are not enlarged. Pharynx without erythema or exudate. Uvula midline. Airway patent. Tongue does not deviate. NECK: Supple without nuchal rigidity. No lymphadenopathy. Cervical spine is nontender. No JVD. HEART: Regular rate and rhythm without murmurs gallops or rubs. LUNGS: Clear to auscultation bilaterally without wheezes, rales or rhonchi. No retractions or accessory muscle use. ABDOMEN: Positive bowel sounds x 4. Soft, nontender, without masses or organomegaly. Manning sign negative. No guarding or rebound tenderness. MUSCULOSKELETAL: No muscle atrophy, erythema, or edema noted. Full range of motion without joint tenderness in all extremities. No tenderness to palpation. Strength 5/5 throughout. NEURO: Patient was alert and oriented to person place and time. Normal sensation to light and sharp touch. Deep tendon reflexes 2+ throughout. No focal neurological deficits. An order was placed for continuous electronic device monitor. The monitor showed a sinus bradycardia at a ventricular rate of 58 bpm, per my interpretation. EKG was reviewed by myself and found to be sinus bradycardia at a rate of 49 beats per minute and per my interpretation reveals no ST elevation or depression. No T wave inversion. When compared to previous EKG of 02/13/2024 shows decreased heart rate from 82-49. Imaging as interpreted by myself and the radiologist revealed no acute findings, with radiologist interpretation as above. I agree with the radiologist's findings as based upon my independent interpretation. EMERGENCY DEPARTMENT COURSE: The patient was seen and evaluated as above. The patient presents for fatigue and hypersomnolence. The patient had decreased responsive episode while at the Coumadin clinic. Apparently, these episodes have been ongoing intermittently for several months. Patient has been evaluated in the emergency department with negative workups. Primary care provider is aware. I did speak with Dr. Saba from the Coumadin clinic and she was concerned for the patient's mental status and that the patient may have needed to have a code called on him due to his decreased responsiveness. IV access was obtained, notes are drawn. Labs reviewed. There is a mild anemia with a hemoglobin of 12.6. No leukocytosis. No thrombocytopenia. Renal, hepatic function and electrolytes without significant abnormality. Ammonia less than 10. Urinalysis negative for blood or evidence of infection. Urine drug screen negative. Tylenol and salicylates negative. Troponin <2.3. Chest x-ray and EKG as above. CT imaging and CT angiogram studies were completed and reviewed by myself and radiologist as noted. Case was discussed with the attending physician. The patient did have several additional episodes. He was found to be bradycardic while in the emergency department. Blood pressure normal, but roughly 100 systolic. Unclear of the cause of patient's symptoms. Could be related to age-related changes and deconditioning as well as chronic illness and history of ICH. Given the patient's persistent symptoms as well as concern from other providers, did recommend inpatient care. The patient will be admitted to the [facility] hospitalist service. Please see hospitalist dictation regarding ongoing management and final disposition of this patient. I attest that I have personally reviewed the patient medication list. I attest that I have reviewed the patient's blood pressure and it was found to be normal GCS: 15 In the evaluation and treatment of this patient the following differential diagnoses were entertained: fatigue, deconditioning, electrolyte abnormality, cardiac abnormality, metabolic abnormality, CVA, TIA, malignancy, among others The chart was completed utilizing [employer] Speech voice recognition software. Grammatical errors, random word insertions, pronoun errors, and incomplete sentences are an occasional consequence of this system due to software limitations, ambient noise, and hardware issues. Any formal questions or concerns about the content, text, or information contained within the body of this dictation should be directly addressed to the provider for clarification. Past Med/Surg History Problem List (Updated 06/07/24 @ 19:00 by Julieta Loving PA-C) Change in mental status (Acute) Hypersomnolence (Acute) Gastrostomy tube in place Depression COVID-19 Acute basilic vein thrombosis (Acute) Pneumonia due to 2019 novel coronavirus (Acute) Pulmonary embolism and infarction (Acute) Encounter for pre-operative examination Bilateral pulmonary embolism (Acute) 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 (CVA) Hemiparesis of right dominant side GERD (gastroesophageal reflux disease) HTN (hypertension) (Acute) Coronary artery disease s/p angioplasty and stenting per outside records Medical History PEG (percutaneous endoscopic gastrostomy) adjustment/replacement/removal (03/24/23) Esophagogastroduodenoscopy with Peg Removal(Not Applicable) - Ameya Lawson, DO 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 CVA (cerebral vascular accident) 09/2019 right side paralysis History of cervical fracture 08/2022 per unsure of level, maybe C2 C3 after fall, follows with [facility] Bustos last seen 02/2023 scheduled for MRI 04/04/2023, no surgery; 09/16/22 discharge summary: type II dens fracture with posterior displacement; C1 anterior arch fracture, bilateral posterior arch fractures and midline posterior arch defect; no surgical intervention due to concerns for surgical risk per records Dysphagia thickened liquids TORRES MARTINEZ (hard of hearing) BL FIERRO History of pulmonary embolism Dx fall 2019 - unk etiology - treated with Eliquis Bradycardia Holter monitor (ordered by PCP) -2019 Hyperlipidemia Benign prostatic hyperplasia Surgical History History of cataract surgery bilateral History of esophagogastroduodenoscopy (EGD) History of colonoscopy H/O heart artery stent x 1 (1999) History of cardiac cath (2003) Minor/nonocclusive disease, mid LAD stent (placed 1999) patent 1999 - [facility] - [place] - 1 stent 2003 - [place] - no stents/angioplasty History of placement of stent in LAD coronary artery (1999) S/P TURP Family History Brother Esophageal cancer Other No family history of adverse response to anesthesia Social History Smoking Status: Former smoker Second Hand Exposure: No; Do You Dip or Chew Tobacco: No; Hx Alcohol Use: No Hx Substance Use: No Preferred Language: Danish Communication Ability: Effective Excelsior Cutter Required: No Beliefs That Will Affect Care: None Current Living Situation: Spouse current occupational status: retired Feels Safe at Home: Yes Assistive Devices: Glasses, Hearing Aid - Bilateral and Wheelchair Allergies Allergies Allergy/AdvReac Type Severity Reaction Status Date / Time niacin Allergy Intermediate itching Verified 11/01/23 10:10 [From Niaspan Extended-Release] Sulfa (Sulfonamide Allergy Intermediate RASH Verified 11/01/23 10:10 Antibiotics) latex Allergy Mild Redness of Verified 11/01/23 10:10 Skin Home Meds Home Medications Medication Instructions Recorded Confirmed atorvastatin 40 mg tablet 40 mg PO QAM 01/24/20 06/07/24 multivitamin 1 tab PO QAM 01/24/20 06/07/24 doxazosin 4 mg tablet 4 mg PO QPM 02/02/23 06/07/24 pantoprazole 40 mg tablet,delayed 40 mg PO QAM 02/02/23 06/07/24 release zinc gluconate 50 mg tablet 50 mg PO DAILY 08/02/23 06/07/24 Lactobacillus combo no.23 14 1 cell PO UD 11/01/23 06/07/24 billion cell capsule (Navin Probiotic) magnesium supplement 1 tab PO DAILY 01/20/24 06/07/24 escitalopram oxalate 20 mg tablet 20 mg PO DAILY 05/11/24 06/07/24 lisinopril 10 mg tablet 10 mg PO QAM 06/07/24 06/07/24 warfarin 4 mg tablet 2 - 4 mg PO UD 06/07/24 06/07/24 Results & Data (ED) Vital Signs Vital Signs - 24 hr 06/07/24 10:57 06/07/24 11:07 06/07/24 12:15 Temperature 36.4 C L Temperature Source Skin Pulse Rate 58 L 53 L Pulse Rate from SpO2 Sensor 53 L Respiratory Rate 20 18 Respiratory Effort / Characteristics Non-Labored Spontaneous Respiratory Depth Normal Respiratory Pattern Regular Blood Pressure 103/69 121/76 Blood Pressure Mean 80 91 Pulse Oximetry 100 97 Oxygen Delivery Method Room Air Room Air Sepsis Recent Fever Within 48 Hours No Sepsis New/Unexplained Change in Mental Status N/A Sepsis Action Taken by Nursing No Action Required 06/07/24 12:32 06/07/24 13:00 06/07/24 13:00 Temperature Temperature Source Pulse Rate 48 L Pulse Rate from SpO2 Sensor Respiratory Rate Respiratory Effort / Characteristics Respiratory Depth Respiratory Pattern Blood Pressure 121/76 121/76 Blood Pressure Mean 89 89 Pulse Oximetry Oxygen Delivery Method Sepsis Recent Fever Within 48 Hours Sepsis New/Unexplained Change in Mental Status Sepsis Action Taken by Nursing 06/07/24 13:00 06/07/24 13:00 06/07/24 13:03 Temperature Temperature Source Pulse Rate 44 L 45 L Pulse Rate from SpO2 Sensor 45 L Respiratory Rate 15 16 Respiratory Effort / Characteristics Respiratory Depth Respiratory Pattern Blood Pressure 121/76 121/76 Blood Pressure Mean 89 91 Pulse Oximetry 97 Oxygen Delivery Method Sepsis Recent Fever Within 48 Hours Sepsis New/Unexplained Change in Mental Status Sepsis Action Taken by Nursing 06/07/24 13:30 06/07/24 13:54 06/07/24 14:00 Temperature Temperature Source Pulse Rate 43 L Pulse Rate from SpO2 Sensor 42 L Respiratory Rate 10 L Respiratory Effort / Characteristics Respiratory Depth Respiratory Pattern Blood Pressure 119/71 130/72 Blood Pressure Mean 97 85 Pulse Oximetry 96 Oxygen Delivery Method Sepsis Recent Fever Within 48 Hours Sepsis New/Unexplained Change in Mental Status Sepsis Action Taken by Nursing 06/07/24 14:00 06/07/24 14:03 06/07/24 14:31 Temperature Temperature Source Pulse Rate 45 L 47 L Pulse Rate from SpO2 Sensor 45 L 45 L Respiratory Rate 16 12 Respiratory Effort / Characteristics Respiratory Depth Respiratory Pattern Blood Pressure 130/72 123/75 Blood Pressure Mean 85 85 Pulse Oximetry 96 98 Oxygen Delivery Method Sepsis Recent Fever Within 48 Hours Sepsis New/Unexplained Change in Mental Status Sepsis Action Taken by Nursing 06/07/24 15:06 06/07/24 16:30 06/07/24 17:00 Temperature Temperature Source Pulse Rate 56 L 52 L 50 L Pulse Rate from SpO2 Sensor 54 L 51 L 51 L Respiratory Rate 16 12 16 Respiratory Effort / Characteristics Respiratory Depth Respiratory Pattern Blood Pressure 132/77 133/80 145/82 H Blood Pressure Mean 95 97 103 Pulse Oximetry 97 97 97 Oxygen Delivery Method Sepsis Recent Fever Within 48 Hours Sepsis New/Unexplained Change in Mental Status Sepsis Action Taken by Nursing 06/07/24 17:31 06/07/24 18:00 06/07/24 18:11 Temperature Temperature Source Pulse Rate 45 L 46 L Pulse Rate from SpO2 Sensor 46 L Respiratory Rate 15 Respiratory Effort / Characteristics Respiratory Depth Respiratory Pattern Blood Pressure 117/79 98/69 L Blood Pressure Mean 84 78 Pulse Oximetry 94 Oxygen Delivery Method Sepsis Recent Fever Within 48 Hours Sepsis New/Unexplained Change in Mental Status Sepsis Action Taken by Nursing Laboratory Data 06/07/24 12:19 06/07/24 12:55 Lab Results 06/07/24 06/07/24 06/07/24 Range/Units 12:19 12:55 14:05 WBC 4.79 L (4.8-10.8) K/ul RBC 4.05 L (4.70-6.10) M/uL Hgb 12.6 L (14.0-18.0) g/dl Hct 37.6 L (42.0-52.0) % MCV 92.8 (80.0-100.0) fL MCH 31.1 (25.0-34.0) pg MCHC 33.5 (32.0-36.0) g/dL RDW Std Deviation 47.8 H (36.4-46.3) fL RDW Coeff of Pedro 14.0 (11.5-14.5) % Plt Count 193 (130-400) K/uL MPV 10.3 (9.4-12.4) fL Immature Gran % (Auto) 0.2 % Neut % (Auto) 46.0 % Lymph % (Auto) 39.2 % Kemper % (Auto) 9.0 % Eos % (Auto) 5.0 % Baso % (Auto) 0.6 % Neut # (Auto) 2.20 (1.40-6.50) K/uL Lymph # (Auto) 1.88 (1.20-3.40) K/uL Kemper # (Auto) 0.43 (0.11-0.59) K/uL Eos # (Auto) 0.24 (0.00-0.50) K/uL Baso # (Auto) 0.03 (0.00-0.20) K/uL Immature Gran # (Auto) 0.01 (0.01-0.20) K/uL PT Cancelled 24.7 H INR Cancelled 2.5 H APTT Cancelled 35 H PTT Ratio Cancelled 1.3 VBG pH (7.36-7.41) VBG pCO2 (38-50) mmHg VBG pO2 mmHg VBG HCO3 mmol/L VBG O2 Saturation % VBG Base Excess mEq/L Sodium 136 (136-145) mmol/L Potassium TNP 4.3 Chloride 102 (98-107) mmol/L Carbon Dioxide 28 (21-32) mmol/L Anion Gap 6 (3-11) BUN 16 (6-23) mg/dl Creatinine 0.93 (0.6-1.4) mg/dl Est Cr Clr Drug Dosing 64.1 ml/min eGFR 81.47 BUN/Creatinine Ratio 17.2 (10-20) Glucose 94 (70-99(Fasting)) mg/dl Calcium 8.9 (8.6-10.3) mg/dl Magnesium 2.0 (1.7-2.4) mg/dl Total Bilirubin 0.6 (0.2-1.0) mg/dl AST TNP 23 ALT 29 (7-52) U/L Alkaline Phosphatase 91 (34-104) U/L Ammonia TNP < 10.0 L Troponin I High Sens < 2.3 (0-20) pg/ml Total Protein 7.5 (6.0-8.3) gm/dl Albumin 3.6 (3.4-5.0) gm/dl Globulin 3.9 (2.5-4.0) gm/dl Albumin/Globulin Ratio 0.9 (0.9-2) Urine Color Urine Appearance (Clear) Urine pH (4.5-7.5) Ur Specific Ione (1.000-1.030) Urine Protein (Negative) Urine Glucose (UA) (Negative) Urine Ketones (Negative) Urine Blood (Negative) Urine Nitrite (Negative) Urine Bilirubin (Negative) Urine Urobilinogen (Negative) Ur Leukocyte Esterase (Negative) Salicylates (3.0-30) mg/dl Urine Opiates Screen (Neg) Ur Methadone, Qual (Neg) Urine Fentanyl Screen (Neg) Acetaminophen (10-30) ug/ml Urine Barbiturates (Neg) Ur Phencyclidine (PCP) (Neg) U Amphetamin/Meth Scrn (Neg) MDMA (Ecstasy) Screen (Neg) U Benzodiazepines Scrn (Neg) Ur Cocaine Metabolite (Neg) U Marijuana (THC) Screen (Neg) 06/07/24 06/07/24 Range/Units 15:13 16:08 WBC (4.8-10.8) K/ul RBC (4.70-6.10) M/uL Hgb (14.0-18.0) g/dl Hct (42.0-52.0) % MCV (80.0-100.0) fL MCH (25.0-34.0) pg MCHC (32.0-36.0) g/dL RDW Std Deviation (36.4-46.3) fL RDW Coeff of Pedro (11.5-14.5) % Plt Count (130-400) K/uL MPV (9.4-12.4) fL Immature Gran % (Auto) % Neut % (Auto) % Lymph % (Auto) % Kemper % (Auto) % Eos % (Auto) % Baso % (Auto) % Neut # (Auto) (1.40-6.50) K/uL Lymph # (Auto) (1.20-3.40) K/uL Kemper # (Auto) (0.11-0.59) K/uL Eos # (Auto) (0.00-0.50) K/uL Baso # (Auto) (0.00-0.20) K/uL Immature Gran # (Auto) (0.01-0.20) K/uL PT INR APTT PTT Ratio VBG pH 7.35 L (7.36-7.41) VBG pCO2 52 H (38-50) mmHg VBG pO2 26 mmHg VBG HCO3 29 mmol/L VBG O2 Saturation < 60.0 % VBG Base Excess 2.1 mEq/L Sodium (136-145) mmol/L Potassium Chloride (98-107) mmol/L Carbon Dioxide (21-32) mmol/L Anion Gap (3-11) BUN (6-23) mg/dl Creatinine (0.6-1.4) mg/dl Est Cr Clr Drug Dosing ml/min eGFR BUN/Creatinine Ratio (10-20) Glucose (70-99(Fasting)) mg/dl Calcium (8.6-10.3) mg/dl Magnesium (1.7-2.4) mg/dl Total Bilirubin (0.2-1.0) mg/dl AST ALT (7-52) U/L Alkaline Phosphatase (34-104) U/L Ammonia Troponin I High Sens (0-20) pg/ml Total Protein (6.0-8.3) gm/dl Albumin (3.4-5.0) gm/dl Globulin (2.5-4.0) gm/dl Albumin/Globulin Ratio (0.9-2) Urine Color Yellow Urine Appearance Clear (Clear) Urine pH 7.5 (4.5-7.5) Ur Specific Ione > 1.045 H (1.000-1.030) Urine Protein Negative (Negative) Urine Glucose (UA) Negative (Negative) Urine Ketones Negative (Negative) Urine Blood Negative (Negative) Urine Nitrite Negative (Negative) Urine Bilirubin Negative (Negative) Urine Urobilinogen Negative (Negative) Ur Leukocyte Esterase Negative (Negative) Salicylates < 3.0 L (3.0-30) mg/dl Urine Opiates Screen Neg (Neg) Ur Methadone, Qual Neg (Neg) Urine Fentanyl Screen Neg (Neg) Acetaminophen < 3 L (10-30) ug/ml Urine Barbiturates Neg (Neg) Ur Phencyclidine (PCP) Neg (Neg) U Amphetamin/Meth Scrn Neg (Neg) MDMA (Ecstasy) Screen Neg (Neg) U Benzodiazepines Scrn Neg (Neg) Ur Cocaine Metabolite Neg (Neg) U Marijuana (THC) Screen Neg (Neg) Administered Medications Discontinued Medications Ioversol (Optiray 320 125ml) 118 ml IV ONCE ONE Stop: 06/07/24 13:23 Last Admin: 06/07/24 13:23 Dose: 118 ml Documented By: TAZ Imaging Data Radiologist's Impression: Chest X-Ray 06/07/24 11:36 XR chest 1V portable CLINICAL HISTORY: fatigue COMPARISON STUDY: 02/13/2024 FINDINGS: There is stable cardiomegaly without pulmonary vascular congestion. Inspiration is shallow. There is mild stranding in the lung bases, likely atelectasis. No other consolidation or pleural effusion. No pneumothorax. IMPRESSION: Likely lung base atelectasis. ACT 112: Negative or not required by law. Electronically signed by: Vern Chacon M.D. 06/07/2024 11:[address] 06/07/24 12:10 CT head/brain wo con CLINICAL HISTORY: 84 years-old Male with neuro deficit, acute stroke suspected. Acute stroke like symptoms TECHNIQUE: Multiple axial CT images of the head were obtained without contrast. A dose lowering technique was utilized adhering to the principles of ALARA. COMPARISON: CTA head of same day, head CT 08/02/2023 FINDINGS: No acute intracranial hemorrhage, midline shift, intracranial mass, hydrocephalus, territorial ischemia or abnormal extra-axial collection. Involutional changes with unchanged extensive and confluent white matter hypodensities suggestive of chronic microvascular ischemic disease. Chronic right basal ganglia lacunar infarcts. Prominent atherosclerosis of the intracranial arteries. The calvarium is intact. Prior bilateral lens repair. The paranasal sinuses, mastoid air cells, and middle ear cavities are clear. IMPRESSION: No acute intracranial abnormality identified. ACT 112: Negative or not required by law. The above report was generated using voice recognition software. It may contain grammatical, syntax or spelling errors. Electronically signed by: Antonio James M.D. 06/07/2024 1:53 PM Head CTA 06/07/24 12:10 CT angio neck with con, CT angio head w con CLINICAL HISTORY: neuro deficit, acute stroke suspected. COMPARISON STUDY: 09/01/2022. Noncontrast head CT earlier today TECHNIQUE: Following the IV administration of 120 of Optiray, CT angiogram of the neck and brain was performed from the aortic arch to the skull base. Images are reviewed in the axial, sagittal, and coronal planes. 3-D MIPS images are created and assessed. IV contrast was administered without complication. All measurements were calculated based on NASCET criteria. A dose lowering technique was utilized adhering to the principles of ALARA. CT DOSE: 1186.92 mGy.cm FINDINGS: There are extensive airway secretions at the distal trachea. There are mild scattered atherosclerotic calcifications. No significant narrowing or occlusion seen at the common or internal carotid arteries bilaterally. The right vertebral artery is extremely diminutive and terminates in PICA, stable. No significant narrowing seen at the left vertebral artery. Basilar artery is widely patent. The anterior, middle, and posterior cerebral arteries are patent bilaterally. Cerebral venous sinuses opacify normally. Stable old odontoid fracture. IMPRESSION: 1. Extensive airway secretions of the distal trachea. 2. No significant arterial narrowing or occlusion seen at the head or neck. 3. Otherwise as described. ACT 112: Negative or not required by law. The above report was generated using voice recognition software. It may contain grammatical, syntax or spelling errors. Electronically signed by: Vern Chacon M.D. 06/07/2024 2:06 PM Neck CTA 06/07/24 12:10 CT angio neck with con, CT angio head w con CLINICAL HISTORY: neuro deficit, acute stroke suspected. COMPARISON STUDY: 09/01/2022. Noncontrast head CT earlier today TECHNIQUE: Following the IV administration of 120 of Optiray, CT angiogram of the neck and brain was performed from the aortic arch to the skull base. Images are reviewed in the axial, sagittal, and coronal planes. 3-D MIPS images are created and assessed. IV contrast was administered without complication. All measurements were calculated based on NASCET criteria. A dose lowering technique was utilized adhering to the principles of ALARA. CT DOSE: 1186.92 mGy.cm FINDINGS: There are extensive airway secretions at the distal trachea. There are mild scattered atherosclerotic calcifications. No significant narrowing or occlusion seen at the common or internal carotid arteries bilaterally. The right vertebral artery is extremely diminutive and terminates in PICA, stable. No significant narrowing seen at the left vertebral artery. Basilar artery is widely patent. The anterior, middle, and posterior cerebral arteries are patent bilaterally. Cerebral venous sinuses opacify normally. Stable old odontoid fracture. IMPRESSION: 1. Extensive airway secretions of the distal trachea. 2. No significant arterial narrowing or occlusion seen at the head or neck. 3. Otherwise as described. ACT 112: Negative or not required by law. The above report was generated using voice recognition software. It may contain grammatical, syntax or spelling errors. Electronically signed by: Vern Chacon M.D. 06/07/2024 2:06 PM Discharge Plan Visit Data Chief Complaint: Referred by Doctor Stated Complaint: REF BY DOC, TROUBLE STAYING AWAKE ED Provider: Chayo Oshea ED Midlevel Provider: Julieta Loving Discharge Problem: Hypersomnolence, Change in mental status Patient Disposition: Admitted As Inpatient Forms Stand Alone Forms: [facility] Prescriptions Prescriptions: No Action magnesium supplement 1 tab PO DAILY escitalopram oxalate 20 mg tablet 20 mg PO DAILY pantoprazole 40 mg tablet,delayed release (DR/EC) 40 mg PO QAM doxazosin 4 mg tablet 4 mg PO QPM Navin Probiotic 14 billion cell capsule 1 cell PO UD Rx Instructions: OTC as directed multivitamin Tablet 1 tab PO QAM atorvastatin 40 mg tablet 40 mg PO QAM lisinopril 10 mg tablet 10 mg PO QAM zinc gluconate 50 mg Tablet 50 mg PO DAILY warfarin 4 mg tablet 2 - 4 mg PO UD Rx Instructions: 2mg every Tuesday/Tuesday/Tuesday, 4mg x 4 days per [facility] orally use as directed; Referrals Referrals: Valentin Freitas DO [Primary Care Provider] -
--- NOTE | 2024-06-07 11:58 | XRay Report ---
XR chest 1V portable CLINICAL HISTORY: fatigue COMPARISON STUDY: 02/13/2024 FINDINGS: There is stable cardiomegaly without pulmonary vascular congestion. Inspiration is shallow. There is mild stranding in the lung bases, likely atelectasis. No other consolidation or pleural eff usion. No pneumothorax. IMPRESSION: Likely lung base atelectasis. ACT 112: Negative or not required by law. Electronically signed by: Vern Chacon M.D. 06/07/2024 11:56 AM
--- NOTE | 2024-06-07 12:06 | Emergency Department Note ---
ED Visit Note I was consulted by the Advanced Practice Provider, Julieta Loving PA-C. I performed a substantive portion of the visit. This includes aspects of: History: Patient is an 84-year-old male presenting with fatigue. Patient reports that he has been very sleepy and difficult to arouse over the last few days. Reportedly this morning he was difficult to wake up for Coumadin clinic and while at the clinic he seemed to become unresponsive and fall asleep. He did eventually wake up but the Coumadin clinic staff referred the patient to the emergency department for further evaluation. Patient denies any headache or changes in symptoms. He reports he has had similar symptoms in the past and has been evaluated without any new diagnoses. He denies any chest pain or shortness of breath. MDM: - Laboratory workup interpreted by myself showed slight leukopenia (WBC 4.79); INR 2.5; stable electrolytes; negative ammonia; normal troponin; negative salicylate/acetaminophen level - CT head wo contrast negative for acute pathology - CXR negative for pneumonia, per my interpretation - UA negative for infection - VBG showed very slight acidosis with hypercarbia. - UDS negative - Unclear etiology for patient's symptoms at this time. However, he had multiple episodes reported by family in the emergency department. We will escalate care to admission for further evaluation and management. - Patient admitted to inpatient hospitalist service .
[2024-06-07 12:53] LABS: Basophils # (auto) 0.03 K/uL (0.00-0.20); Basophils % (auto) 0.6 %; Eosinophils # (auto) 0.24 K/uL (0.00-0.50); Hematocrit (blood only) 37.6 % (42.0-52.0); Hemoglobin 12.6 g/dl (14.0-18.0); Immature Granulocytes # (auto) 0.01 K/uL (0.01-0.20); Immature Granulocytes % (auto) 0.2 %; Lymphocytes # (auto) 1.88 K/uL (1.20-3.40); Lymphocytes % (auto) 39.2 %; Mean Corpuscular Hemoglobin 31.1 pg (25.0-34.0); Mean Corpuscular Hgb Conc 33.5 g/dL (32.0-36.0); Mean Corpuscular Volume 92.8 fL (80.0-100.0); Mean Platelet Volume 10.3 fL (9.4-12.4); Monocytes # (auto) 0.43 K/uL (0.11-0.59); Platelet Count 193 K/uL (130-400); RDW Standard Deviation 47.8 fL (36.4-46.3); Red Blood Count 4.05 M/uL (4.70-6.10); White Blood Count 4.79 K/ul (4.8-10.8)
[2024-06-07 13:00] LABS: Alanine Aminotransferase 29 U/L (7-52); Albumin Globulin Ratio 0.9 (0.9-2); Albumin Level 3.6 gm/dl (3.4-5.0); Alkaline Phosphatase 91 U/L (34-104); Anion Gap 6 (3-11); BUN Creatinine Ratio 17.2 (10-20); Bilirubin,Total 0.6 mg/dl (0.2-1.0); Blood Urea Nitrogen 16 mg/dl (6-23); Calcium 8.9 mg/dl (8.6-10.3); Carbon Dioxide 28 mmol/L (21-32); Chloride 102 mmol/L (98-107); Creatinine Clr Calc Pharmacy 64.1 ml/min; Globulin 3.9 gm/dl (2.5-4.0); Glucose 94 mg/dl (70-99(Fasting)); Sodium 136 mmol/L (136-145); Total Protein 7.5 gm/dl (6.0-8.3)
[2024-06-07 13:05] LABS: Troponin I High Sensitivity < 2.3 pg/ml (0-20)
[2024-06-07 13:14] LABS: Potassium 4.3 mmol/L (3.5-5.1)
[2024-06-07] MEDS: OPTIRAY 320 125ml IV ONE (13:23)
--- NOTE | 2024-06-07 13:54 | CT Scan Report ---
CT head/brain wo con CLINICAL HISTORY: 84 years-old Male with neuro deficit, acute stroke suspected. Acute stroke like sy mptoms TECHNIQUE: Multiple axial CT images of the head were obtained without contrast. A dose lowering tech nique was utilized adhering to the principles of ALARA. COMPARISON: CTA head of same day, head CT 08/02/2023 FINDINGS: No acute intracranial hemorrhage, midline shift, intracranial mass, hydrocephalus, territorial ischem ia or abnormal extra-axial collection. Involutional changes with unchanged extensive and confluent wh ite matter hypodensities suggestive of chronic microvascular ischemic disease. Chronic right basal ga nglia lacunar infarcts. Prominent atherosclerosis of the intracranial arteries. The calvarium is intact. Prior bilateral lens repair. The paranasal sinuses, mastoid air cells, and m iddle ear cavities are clear. IMPRESSION: No acute intracranial abnormality identified. ACT 112: Negative or not required by law. The above report was generated using voice recognition software. It may contain grammatical, syntax o r spelling errors. Electronically signed by: Antonio James M.D. 06/07/2024 1:53 PM
--- NOTE | 2024-06-07 14:08 | CT Scan Report ---
CT angio neck with con, CT angio head w con CLINICAL HISTORY: neuro deficit, acute stroke suspected. COMPARISON STUDY: 09/01/2022. Noncontrast head CT earlier today TECHNIQUE: Following the IV administration of 120 of Optiray, CT angiogram of the neck and brain was performed from the aortic arch to the skull base. Images are reviewed in the axial, sagittal, and cor onal planes. 3-D MIPS images are created and assessed. IV contrast was administered without complicat ion. All measurements were calculated based on NASCET criteria. A dose lowering technique was utiliz ed adhering to the principles of ALARA. CT DOSE: 1186.92 mGy.cm FINDINGS: There are extensive airway secretions at the distal trachea. There are mild scattered ather osclerotic calcifications. No significant narrowing or occlusion seen at the common or internal carot id arteries bilaterally. The right vertebral artery is extremely diminutive and terminates in PICA, s table. No significant narrowing seen at the left vertebral artery. Basilar artery is widely patent. T he anterior, middle, and posterior cerebral arteries are patent bilaterally. Cerebral venous sinuses opacify normally. Stable old odontoid fracture. IMPRESSION: 1. Extensive airway secretions of the distal trachea. 2. No significant arterial narrowing or occlusion seen at the head or neck. 3. Otherwise as described. ACT 112: Negative or not required by law. The above report was generated using voice recognition software. It may contain grammatical, syntax o r spelling errors. Electronically signed by: Vern Chacon M.D. 06/07/2024 2:06 PM
--- NOTE | 2024-06-07 14:58 | Electrocardiogram Report ---
Test Reason : Blood Pressure : */* mmHG Vent. Rate : 49 BPM Atrial Rate : 49 BPM P-R Int : 204 ms QRS Dur : 84 ms QT Int : 458 ms P-R-T Axes : 29 21 13 degrees QTcB Int : 413 ms Sinus bradycardia Otherwise normal ECG When compared with ECG of 13-Feb-2024 12:36, Vent. rate has decreased by 33 bpm Confirmed by Kvng Phillip ([id number]) on 06/07/2024 2:57:36 PM Referred By: Rosita Saba Confirmed By: Kvng Phillip
[2024-06-07 15:21] LABS: Base Excess VBG 2.1 mEq/L; HCO3 VBG 29 mmol/L; Oxygen Saturation VBG < 60.0 %; PCO2 VBG 52 mmHg (38-50); PO2 VBG 26 mmHg; pH VBG 7.35 (7.36-7.41)
[2024-06-07 15:59] LABS: INR 2.5 (0.9-1.1); Partial Thromboplastin Ratio 1.3; Partial Thromboplastin Time 35 Seconds (21-31); Prothrombin Time 24.7 Seconds (9.0-12.0)
[2024-06-07 16:08] LABS: Acetaminophen < 3 ug/ml (10-30); Salicylate < 3.0 mg/dl (3.0-30)
[2024-06-07 16:30] LABS: Appearance Urine Clear (Clear); Bilirubin Urine Negative (Negative); Blood Urine Negative (Negative); Color Urine Yellow; Glucose Urine UA Negative (Negative); Ketones Urine Negative (Negative); Leukocyte Esterase Urine Negative (Negative); Nitrite Urine Negative (Negative); Protein Urine Negative (Negative); Specific Gravity Urine > 1.045 (1.000-1.030); Urobilinogen Urine Negative (Negative); pH Urine 7.5 (4.5-7.5)
[2024-06-07 16:58] LABS: Amphetamines+Metham, Urine Neg (Neg); Barbiturates, Urine Neg (Neg); Benzodiazepine, Urine Neg (Neg); Cocaine, Urine Neg (Neg); Fentanyl, Urine Neg (Neg); MDMA (Ecstacy), Urine Neg (Neg); Marijuana, Urine Neg (Neg); Methadone, Urine Neg (Neg); Opiate, Urine Neg (Neg); Phencyclidine, Urine Neg (Neg)
[2024-06-07] MEDS ORDERED: ACETAMINOPHEN 325 MG TAB PO PRN (17:03)
[2024-06-07] MEDS ORDERED: ONDANSETRON INJ 2 MG/ML 2 ML VIAL IV PRN (17:03)
[2024-06-07] MEDS ORDERED: NITROGLYCERIN SL 0.4 MG/TAB TAB SL PRN (17:03)
[2024-06-07] MEDS ORDERED: POLYETHYLENE (MIRALAX) 17 GM PACK PO PRN (17:03)
--- NOTE | 2024-06-07 17:14 | History & Physical Report ---
Date of Service June 07, 2024 Assessment & Plan (1) Hypersomnolence: Plan: Per family, this has been going on for about 6 months or so where he has good days and bad days. He has slept for 24 to 48 hours at a stretch. He is also more forgetful some days and the others. It sounds like with baseline history of hemorrhagic stroke, this could be dementia Will get an EEG to evaluate for the possibility of seizures In the emergency room, the patient was noted to have bradycardia in the 40s. I will monitor him on telemetry. I do not think that this is bradycardia induced unresponsiveness. Rather, this may be the other way around where the excessive somnolence may be causing his bradycardia. Of note the patient has a history of sleep apnea. 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 (4) HTN (hypertension): Plan: Continue lisinopril and doxazosin (5) Coronary artery disease: Plan: Continue Lipitor and lisinopril (6) GERD (gastroesophageal reflux disease): Plan: Continue Protonix Plan CODE STATUS: DNR/DNI DVT prophylaxis: Coumadin History of Present Illness Chief Complaint: Excessive somnolence Primary Care Provider: Valentin Freitas, This is an 84-year-old male with a history of 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 The patient's provided me with most of the history. She stated that he has been sleeping excessively for about 6 months. And it has been gradually getting worse. There are days when he is sharp but there other days when he is very sleepy and forgetful. He sometimes sleeps for 24 to 48 hours at a stretch and it is impossible for them to wake him up. This morning, he had a Coumadin clinic appointment and it was very difficult for her to wake him up to get him to the appointment. Finally he was able to get him to the clinic. However, while at the clinic, he was excessively drowsy. Dr. Saba was concerned and sent him to the emergency room. In the ER, he had some screening labs done all of which were negative. Urinalysis was negative as well. His CT head, CTA neck and CTA head were all negative. It was noted in the ER that his heart rate was in the 40s. EKG showed sinus bradycardia, otherwise normal EKG. He is being admitted to evaluate for seizure, to get a neurologist involved and to monitor on telemetry in case the bradycardia was related to his hypersomnolence/unresponsiveness Past medical history 1. 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 History of PE/DVT. Initially on Eliquis. Had the bleeding stroke while on Eliquis. Then switched over to Coumadin. Has been on Coumadin since 3. Coronary artery disease status post stent 4. Question of prostate cancer 5. Benign essential hypertension 6. Hyperlipidemia 7. Depression 8. Cervical neck fracture Allergies Allergy/AdvReac Type Severity Reaction Status Date / Time niacin Allergy Intermediate itching Verified 11/01/23 10:10 [From Niaspan Extended-Release] Sulfa (Sulfonamide Allergy Intermediate RASH Verified 11/01/23 10:10 Antibiotics) latex Allergy Mild Redness of Verified 11/01/23 10:10 Skin Home Medications Medication Instructions Recorded Confirmed Type atorvastatin 40 mg tablet 40 mg PO QAM 01/24/20 06/07/24 History multivitamin 1 tab PO QAM 01/24/20 06/07/24 History doxazosin 4 mg tablet 4 mg PO QPM 02/02/23 06/07/24 History pantoprazole 40 mg tablet,delayed 40 mg PO QAM 02/02/23 06/07/24 History release zinc gluconate 50 mg tablet 50 mg PO DAILY 08/02/23 06/07/24 History Lactobacillus combo no.23 14 1 cell PO UD 11/01/23 06/07/24 History billion cell capsule (Navin Probiotic) magnesium supplement 1 tab PO DAILY 01/20/24 06/07/24 History escitalopram oxalate 20 mg tablet 20 mg PO DAILY 05/11/24 06/07/24 History lisinopril 10 mg tablet 10 mg PO QAM 06/07/24 06/07/24 History warfarin 4 mg tablet 2 - 4 mg PO UD 06/07/24 06/07/24 History Past Med/Surg History Problem List (Updated 06/07/24 @ 17:28 by Branden Ramey MD) Hypersomnolence Gastrostomy tube in place Depression COVID-19 Acute basilic vein thrombosis (Acute) Pneumonia due to 2019 novel coronavirus (Acute) Pulmonary embolism and infarction (Acute) Encounter for pre-operative examination Bilateral pulmonary embolism (Acute) 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 (CVA) Hemiparesis of right dominant side GERD (gastroesophageal reflux disease) HTN (hypertension) (Acute) Coronary artery disease s/p angioplasty and stenting per outside records Medical History PEG (percutaneous endoscopic gastrostomy) adjustment/replacement/removal (03/24/23) Esophagogastroduodenoscopy with Peg Removal(Not Applicable) - Ameya Lawson, DO 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 CVA (cerebral vascular accident) 09/2019 right side paralysis History of cervical fracture 08/2022 per unsure of level, maybe C2 C3 after fall, follows with [facility] [place] Bustos last seen 02/2023 scheduled for MRI 04/04/2023, no surgery; 09/16/22 discharge summary: type II dens fracture with posterior displacement; C1 anterior arch fracture, bilateral posterior arch fractures and midline posterior arch defect; no surgical intervention due to concerns for surgical risk per records Dysphagia thickened liquids [place] (hard of hearing) [place] History of pulmonary embolism Dx fall 2019 - unk etiology - treated with Eliquis Bradycardia Holter monitor (ordered by PCP) -2019 Hyperlipidemia Benign prostatic hyperplasia Surgical History History of cataract surgery bilateral History of esophagogastroduodenoscopy (EGD) History of colonoscopy H/O heart artery stent x 1 (1999) History of cardiac cath (2003) Minor/nonocclusive disease, mid LAD stent (placed 1999) patent 1999 - [place] - [place] - 1 stent 2004 - [place] - no stents/angioplasty History of placement of stent in LAD coronary artery (1999) S/P TURP Family History Brother Esophageal cancer Other No family history of adverse response to anesthesia Social History Smoking Status: Former smoker Second Hand Exposure: No; Do You Dip or Chew Tobacco: No; Hx Alcohol Use: No Hx Substance Use: No Preferred Language: Icelandic Communication Ability: Effective Environmental Services Tech Required: No Beliefs That Will Affect Care: None Current Living Situation: Spouse current occupational status: retired Feels Safe at Home: Yes Assistive Devices: Glasses, Hearing Aid - Bilateral and Wheelchair Review of Systems Review of Systems: All systems reviewed & are unremarkable except as noted in Subjective Physical Exam Physical Exam: General appearance: Was sleeping for most of my encounter. I was able to wake him up. He answered some simple questions for me. Pupils: Equally reactive to light and accommodation Neck: No masses, no thyromegaly Respiration: Clear to auscultation bilaterally. Normal effort Cardiovascular: S1-S2/regular rate and rhythm. No murmur, rubs or gallop. No edema. Abdomen: Soft, nontender, nondistended. No hepatosplenomegaly Musculoskeletal: No clubbing, no cyanosis, normal range of motion Skin: No rashes, no nodules Neuro exam: Cranial nerves intact, sensation grossly intact. Right upper and lower extremity paralysis noted Psychiatric: Patient did not talk much and did not participate in a conversation. AOx3. Lymphatics: No cervical or axillary lymphadenopathy noted Results & Data Results & Data Vital Signs (Past 12 Hours) Vital Signs Temp Pulse Resp BP Pulse Ox O2 Del Method 06/07/24 15:06 56 L 16 132/77 97 06/07/24 14:31 47 L 12 123/75 98 06/07/24 14:03 45 L 16 96 06/07/24 14:00 130/72 06/07/24 14:00 130/72 06/07/24 13:54 43 L 10 L 96 06/07/24 13:30 119/71 06/07/24 13:03 45 L 16 97 06/07/24 13:00 44 L 15 121/76 06/07/24 13:00 121/76 06/07/24 13:00 121/76 06/07/24 13:00 121/76 06/07/24 12:32 48 L 06/07/24 12:15 53 L 18 121/76 97 06/07/24 11:07 36.4 C L 58 L 20 103/69 100 Room Air 06/07/24 10:57 Room Air Laboratory Results Abnormal lab results 06/07/24 06/07/24 06/07/24 Range/Units 12:19 12:55 14:05 WBC 4.79 L (4.8-10.8) K/ul RBC 4.05 L (4.70-6.10) M/uL Hgb 12.6 L (14.0-18.0) g/dl Hct 37.6 L (42.0-52.0) % RDW Std Deviation 47.8 H (36.4-46.3) fL PT 24.7 H (9.0-12.0) Seconds INR 2.5 H (0.9-1.1) APTT 35 H (21-31) Seconds VBG pH (7.36-7.41) VBG pCO2 (38-50) mmHg Ammonia < 10.0 L (18-72) umol/L Ur Specific [place] (1.000-1.030) Salicylates (3.0-30) mg/dl Acetaminophen (10-30) ug/ml 06/07/24 06/07/24 Range/Units 15:13 16:08 WBC (4.8-10.8) K/ul RBC (4.70-6.10) M/uL Hgb (14.0-18.0) g/dl Hct (42.0-52.0) % RDW Std Deviation (36.4-46.3) fL PT (9.0-12.0) Seconds INR (0.9-1.1) APTT (21-31) Seconds VBG pH 7.35 L (7.36-7.41) VBG pCO2 52 H (38-50) mmHg Ammonia (18-72) umol/L Ur Specific [place] > 1.045 H (1.000-1.030) Salicylates < 3.0 L (3.0-30) mg/dl Acetaminophen < 3 L (10-30) ug/ml Diagnostic Findings Chest X-Ray 06/07/24 11:36 XR chest 1V portable CLINICAL HISTORY: fatigue COMPARISON STUDY: 02/13/2024 FINDINGS: There is stable cardiomegaly without pulmonary vascular congestion. Inspiration is shallow. There is mild stranding in the lung bases, likely atelectasis. No other consolidation or pleural effusion. No pneumothorax. IMPRESSION: Likely lung base atelectasis. ACT 112: Negative or not required by law. Electronically signed by: Vern Chacon M.D. 06/07/2024 11:[address] 06/07/24 12:10 CT head/brain wo con CLINICAL HISTORY: 84 years-old Male with neuro deficit, acute stroke suspected. Acute stroke like symptoms TECHNIQUE: Multiple axial CT images of the head were obtained without contrast. A dose lowering technique was utilized adhering to the principles of ALARA. COMPARISON: CTA head of same day, head CT 08/02/2023 FINDINGS: No acute intracranial hemorrhage, midline shift, intracranial mass, hydrocephalus, territorial ischemia or abnormal extra-axial collection. Involutional changes with unchanged extensive and confluent white matter hypodensities suggestive of chronic microvascular ischemic disease. Chronic right basal ganglia lacunar infarcts. Prominent atherosclerosis of the intracranial arteries. The calvarium is intact. Prior bilateral lens repair. The paranasal sinuses, mastoid air cells, and middle ear cavities are clear. IMPRESSION: No acute intracranial abnormality identified. ACT 112: Negative or not required by law. The above report was generated using voice recognition software. It may contain grammatical, syntax or spelling errors. Electronically signed by: Antonio James M.D. 06/07/2024 1:53 PM Head CTA 06/07/24 12:10 CT angio neck with con, CT angio head w con CLINICAL HISTORY: neuro deficit, acute stroke suspected. COMPARISON STUDY: 09/01/2022. Noncontrast head CT earlier today TECHNIQUE: Following the IV administration of 120 of Optiray, CT angiogram of the neck and brain was performed from the aortic arch to the skull base. Images are reviewed in the axial, sagittal, and coronal planes. 3-D MIPS images are created and assessed. IV contrast was administered without complication. All measurements were calculated based on NASCET criteria. A dose lowering technique was utilized adhering to the principles of ALARA. CT DOSE: 1186.92 mGy.cm FINDINGS: There are extensive airway secretions at the distal trachea. There are mild scattered atherosclerotic calcifications. No significant narrowing or occlusion seen at the common or internal carotid arteries bilaterally. The right vertebral artery is extremely diminutive and terminates in PICA, stable. No significant narrowing seen at the left vertebral artery. Basilar artery is widely patent. The anterior, middle, and posterior cerebral arteries are patent bilaterally. Cerebral venous sinuses opacify normally. Stable old odontoid fracture. IMPRESSION: 1. Extensive airway secretions of the distal trachea. 2. No significant arterial narrowing or occlusion seen at the head or neck. 3. Otherwise as described. ACT 112: Negative or not required by law. The above report was generated using voice recognition software. It may contain grammatical, syntax or spelling errors. Electronically signed by: Vern Chacon M.D. 06/07/2024 2:06 PM Neck CTA 06/07/24 12:10 CT angio neck with con, CT angio head w con CLINICAL HISTORY: neuro deficit, acute stroke suspected. COMPARISON STUDY: 09/01/2022. Noncontrast head CT earlier today TECHNIQUE: Following the IV administration of 120 of Optiray, CT angiogram of the neck and brain was performed from the aortic arch to the skull base. Images are reviewed in the axial, sagittal, and coronal planes. 3-D MIPS images are created and assessed. IV contrast was administered without complication. All measurements were calculated based on NASCET criteria. A dose lowering technique was utilized adhering to the principles of ALARA. CT DOSE: 1186.92 mGy.cm FINDINGS: There are extensive airway secretions at the distal trachea. There are mild scattered atherosclerotic calcifications. No significant narrowing or occlusion seen at the common or internal carotid arteries bilaterally. The right vertebral artery is extremely diminutive and terminates in PICA, stable. No significant narrowing seen at the left vertebral artery. Basilar artery is widely patent. The anterior, middle, and posterior cerebral arteries are patent bilaterally. Cerebral venous sinuses opacify normally. Stable old odontoid fracture. IMPRESSION: 1. Extensive airway secretions of the distal trachea. 2. No significant arterial narrowing or occlusion seen at the head or neck. 3. Otherwise as described. ACT 112: Negative or not required by law. The above report was generated using voice recognition software. It may contain grammatical, syntax or spelling errors. Electronically signed by: Vern Chacon M.D. 06/07/2024 2:06 PM PG Care Time/CCT Total # of Minutes Spent Total Time Spent with Patient: Total time spent is greater than 50% in coordination of care (as documented) at patient's floor/unit and/or counseling patient: Coding Level of Care Code 36446 INT INP/OBS CARE 2/MIN Diagnoses Hypersomnolence G47.10 Pulmonary embolism and infarction I26.99 Hemiparesis of right dominant side G81.91 HTN (hypertension) I10 Hypertension type: unspecified Coronary artery disease I25.10 GERD (gastroesophageal reflux disease) K21.9 (4) HTN (hypertension) Hypertension type: unspecified Qualified Code(s): I10 - Essential (primary) hypertension
[2024-06-07] MEDS ORDERED: WARFARIN SOD 4 MG TAB PO SCH (19:50)
[2024-06-07] MEDS: WARFARIN SOD 4 MG TAB PO SCH (21:14)
[2024-06-07] MEDS: DOXAZosin MESYLATE 4 MG TAB PO SCH (21:15)
[2024-06-08 06:44] LABS: INR 2.2 (0.9-1.1); Prothrombin Time 22.1 Seconds (9.0-12.0)
[2024-06-08] MEDS: lisinopril 10 MG TAB PO SCH (08:02)
[2024-06-08] MEDS: ATORVASTATIN 40 MG TAB PO SCH (08:03)
[2024-06-08] MEDS: ESCITALOPRAM OXALATE 20 MG TAB PO SCH (08:03)
[2024-06-08] MEDS: PANTOprazole 40 MG TAB PO SCH (08:03)
--- NOTE | 2024-06-08 10:42 | Neurology Consultation ---
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 Patient has been persistently hypersomnolent with a tendency for recurrent episodes of decreased responsiveness. I suspect his hypersomnolence and associated episodes of decreased responsiveness are due to acquired narcolepsy or possibly central sleep apnea as a result of his previous hemorrhagic stroke that may have also involved the hypothalamus. Patient will need a formal outpatient assessment with sleep medicine to include polysomnogram and MSLT. Patient's clinical presentation does not seem consistent with seizure disorder. EEG completed this morning negative for epileptiform abnormalities. If the above sleep medicine evaluation is unrevealing, would then recommend ambulatory EEG monitoring. Please call with any questions. 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 He has a residual spastic right hemiplegia and aphasia. He presented to the emergency department yesterday for further assessment of persistent excessive somnolence, he had an episode of decreased responsiveness while at the [facility]madin clinic recently. These episodes have been occurring intermittently over several months. The patient is very limited historian, he is inattentive, somnolent, and partially aphasic. A CT of the head was negative for hemorrhage or acute process, there is chronic microvascular ischemic disease and chronic lacunar infarcts. I independently reviewed these images. There is an area of probable encephalomalacia within the left thalamic region likely related to his previous hemorrhage. A CTA of the head and neck were negative for significant vascular lesion. Allergies Allergy/AdvReac Type Severity Reaction Status Date / Time niacin Allergy Intermediate itching Verified 11/01/23 10:10 [From Niaspan Extended-Release] Sulfa (Sulfonamide Allergy Intermediate RASH Verified 11/01/23 10:10 Antibiotics) latex Allergy Mild Redness of Verified 11/01/23 10:10 Skin Home Medications Medication Instructions Recorded Confirmed Type atorvastatin 40 mg tablet 40 mg PO QAM 01/24/20 06/07/24 History multivitamin 1 tab PO QAM 01/24/20 06/07/24 History doxazosin 4 mg tablet 4 mg PO QPM 02/02/23 06/07/24 History pantoprazole 40 mg tablet,delayed 40 mg PO QAM 02/02/23 06/07/24 History release zinc gluconate 50 mg tablet 50 mg PO DAILY 08/02/23 06/07/24 History Lactobacillus combo no.23 14 1 cell PO UD 11/01/23 06/07/24 History billion cell capsule (Navin Probiotic) magnesium supplement 1 tab PO DAILY 01/20/24 06/07/24 History escitalopram oxalate 20 mg tablet 20 mg PO DAILY 05/11/24 06/07/24 History lisinopril 10 mg tablet 10 mg PO QAM 06/07/24 06/07/24 History warfarin 4 mg tablet 2 - 4 mg PO UD 06/07/24 06/07/24 History Patient History Medical History PEG (percutaneous endoscopic gastrostomy) adjustment/replacement/removal (03/24/23) Esophagogastroduodenoscopy with Peg Removal(Not Applicable) - Ameya Lawson, 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 CVA (cerebral vascular accident) 09/2019 right side paralysis History of cervical fracture 08/2022 per unsure of level, maybe C2 C3 after fall, [place] [facility] [place] Bustos last seen 02/2023 scheduled for MRI 04/04/2023, no surgery; 09/16/22 discharge summary: type II dens fracture with posterior displacement; C1 anterior arch fracture, bilateral posterior arch fractures and midline posterior arch defect; no surgical intervention due to concerns for surgical risk per records Dysphagia thickened liquids [place] (hard of hearing) [place] History of pulmonary embolism Dx fall 2019 - unk etiology - treated with Eliquis Bradycardia Holter monitor (ordered by PCP) -2019 Hyperlipidemia Benign prostatic hyperplasia Surgical History History of cataract surgery bilateral History of esophagogastroduodenoscopy (EGD) History of colonoscopy H/O heart artery stent x 1 (1999) History of cardiac cath (2003) Minor/nonocclusive disease, mid LAD stent (placed 1999) patent 1999 - [facility] [place] - [place] - 1 stent 2003 - [place] - no stents/angioplasty History of placement of stent in LAD coronary artery (1999) S/P TURP Family History Brother Esophageal cancer Other No family history of adverse response to anesthesia Social History Smoking Status: Unknown if ever smoked Second Hand Exposure: No; Do You Dip or Chew Tobacco: No; Hx Alcohol Use: No Hx Substance Use: No Preferred Language: Canadian Communication Ability: Effective Truckman Required: No Beliefs That Will Affect Care: None Current Living Situation: Family Current Living Situation Comment: and son current occupational status: retired Feels Safe at Home: Yes Safety Concerns: Feels Safe At This Time Assistive Devices: Glasses, Hearing Aid - Bilateral, Mechanical Lift and Wheelchair Review of Systems Review of Systems: Unobtainable due to cognitive status Exam (Neuro) Constitutional: well developed and well nourished Eyes: normal visual ascencio by confrontation, PERRL and EOM intact bilaterally; no nystagmus Neurologic: Oriented to:: Person; negative Place or Time Cognitive Function: negative Concentration or Cognitive Speed Memory: negative Short Term Intact Attention: negative Span Intact Speech Fluency: Dysfluency Speech Aphasia: Aphasia (Difficulty with object naming, made paraphasic errors, unable to repeat) Cranial Nerves: Normal II, III, IV, , V, VIII, IX, X, XI and XII; Abnorm VII (Right lower facial droop noted) Motor Strength: Hemiplegia Laterality: Right Spasticity: Hemispasticity Laterality: Right Muscle Bulk/Involuntary Movements: No Involuntary Movements Sensation: Light Touch Intact and Pain/Temperature Intact Coordination: negative Finger-Nose Abnormal or Heel-Alaniz Abnormal Deep Tendon Reflexes: Rt Triceps: 3+, Lt Triceps: 2+, Rt Biceps: 3+, Lt Biceps: 2+, Rt Brachioradialis: 3+, Lt Brachioradialis: 2+, Rt Patellar: 3+, Lt Patellar: 2+, Rt Ankle: 3+ and Lt Ankle: 2+ Special Tests: Babinski Present (right) Results & Data Vital Signs (Past 12 Hours) Vital Signs Temp Pulse Pulse Resp BP Pulse Ox O2 Del Method 06/08/24 07:37 48 L 06/08/24 07:10 36.5 C 47 L 17 111/70 95 Room Air 06/08/24 03:11 36.5 C 52 L 16 103/64 93 Room Air 06/08/24 00:00 51 L 06/07/24 23:18 36.8 C 49 L 18 120/76 95 Room Air Laboratory Results WBC 4.79, hemoglobin 12.6, hematocrit 37.6, platelet count 193 sodium 136, potassium 4.3, BUN 16, creatinine 0.93 glucose 94, calcium 8.9, magnesium Diagnostic Findings Electrocardiogram reveals sinus bradycardia. An electroencephalogram completed was negative for epileptiform abnormalities. Coding Level of Care Code 18009 INT INP/OBS CARE 3/75MIN Diagnoses Hypersomnolence G47.10 Hemiparesis of right dominant side G81.91 Aphasia as late effect of cerebrovascular accident I69.320 H/O cerebral parenchymal hemorrhage Z86.79 Time Spent (min) 90 Comment Total time includes patient contact, chart review, counseling, note preparation
--- NOTE | 2024-06-08 12:05 | Electroencephalogram ---
EEG Procedure Note Date of Service June 08, 2024 Start / End Times Start Time: 6:12 AM End Time: 6:42 AM Referring Physician Karoline History Excessive somnolence, episodes of decreased responsiveness, evaluate for possible seizures Home Medication List Medication Instructions Recorded Confirmed Type atorvastatin 40 mg tablet 40 mg PO QAM 01/24/20 06/07/24 History multivitamin 1 tab PO QAM 01/24/20 06/07/24 History doxazosin 4 mg tablet 4 mg PO QPM 02/02/23 06/07/24 History pantoprazole 40 mg tablet,delayed 40 mg PO QAM 02/02/23 06/07/24 History release zinc gluconate 50 mg tablet 50 mg PO DAILY 08/02/23 06/07/24 History Lactobacillus combo no.23 14 1 cell PO UD 11/01/23 06/07/24 History billion cell capsule (Navin Probiotic) magnesium supplement 1 tab PO DAILY 01/20/24 06/07/24 History escitalopram oxalate 20 mg tablet 20 mg PO DAILY 05/11/24 06/07/24 History lisinopril 10 mg tablet 10 mg PO QAM 06/07/24 06/07/24 History warfarin 4 mg tablet 2 - 4 mg PO UD 06/07/24 06/07/24 History Inpatient Medication List Atorvastatin Calcium (Atorvastatin 40 Mg Tab) [address] [facility] Stop: 07/08/24 08:59 Last Admin: 06/08/24 08:03 Dose: 40 mg Documented By: Doxazosin Mesylate (Doxazosin Mesylate 4 Mg Tab) 4 mg PO QPM [facility] Stop: 07/07/24 20:59 Last Admin: 06/07/24 21:15 Dose: 4 mg Documented By: MATTHEW Escitalopram Oxalate (Escitalopram Oxalate 20 Mg Tab) 20 mg PO DAILY [facility] Stop: 07/08/24 08:59 Last Admin: 06/08/24 08:03 Dose: 20 mg Documented By: Lisinopril (L[facility]opril 10 Mg Tab) [facility] Stop: 07/08/24 08:59 Last Admin: 06/08/24 08:02 Dose: 10 mg Documented By: Pantoprazole Sodium (Pantoprazole 40 Mg Tab) [facility] Stop: 07/08/24 08:59 Last Admin: 06/08/24 08:03 Dose: 40 mg Documented By: Warfarin Sodium (Warfarin Sod 4 Mg Tab) 4 mg PO Sonia@1600 [place] Stop: 07/07/24 20:29 Last Admin: 06/07/24 21:14 Dose: 4 mg Documented By: MATTHEW Discontinued Medications Ioversol (Optiray 320 125ml) 118 ml IV ONCE ONE Stop: 06/07/24 13:23 Last Admin: 06/07/24 13:23 Dose: 118 ml Documented By: TAZ Description This is a 21 electrode EEG with a single channel dedicated to limited EKG. The electrodes were placed in accordance with the International 10-20 system. There is a posterior dominant rhythm of 8 Hz which is symmetrically distributed and attenuates with eye opening. There is a normal anterior to posterior organization. Photic stimulation is unremarkable. Hyperventilation is not formed. There is asymmetry in the beta rhythm, greater amplitude over the right frontal region. There is admixed generalized polymorphic theta activity. There is no focal slowing. There are no epileptiform abnormalities. Interpretation Mildly abnormal awake/EEG with findings suggestive of a mild encephalopathy encephalopathy.. There is asymmetry in the beta rhythm which may be related to patient's history of left thalamic hemorrhage. No epileptiform abnormalities. [facility] EEG Procedure Codes Indication for Procedure (1) H/O cerebral parenchymal hemorrhage: (2) Aphasia as late effect of cerebrovascular accident: (3) Change in mental status: (4) Hypersomnolence: Neurology Neurology: [id number] EEG include record awake & drowsy
--- NOTE | 2024-06-08 12:57 | Hospitalist Progress Note ---
Date of Service June 08, 2024 Assessment & Plan (1) Hypersomnolence: Plan: Per family, this has been going on for about 6 months or so where he has good days and bad days. He has slept for 24 to 48 hours at a stretch. He is also more forgetful some days and the others. It sounds like with baseline history of hemorrhagic stroke, this could be dementia EEG ruled out seizures The neurologist suspects that his hypersomnolence could be due to required haily colepsy or possibly central sleep apnea as a result of previous hemorrhagic stroke that may have also involved the hypothalamus Neurologist recommends outpatient referral to sleep medicine to include polysomnogram and MSLT In the emergency room, the patient was noted to have bradycardia in the 40s. I will continue to monitor him on telemetry to rule out any arrhythmia induced unresponsiveness Urinalysis negative Vital signs stable otherwise Labs unremarkable CT head, CTA head and neck were unremarkable (2) Pulmonary embolism and infarction: Plan: Continue Coumadin at current dosing INR therapeutic (3) Hemiparesis of right dominant side: Plan: This is a result of a hemorrhagic stroke in September 2021 (4) HTN (hypertension): Plan: Continue lisinopril and doxazosin (5) Coronary artery disease: Plan: Continue Lipitor and lisinopril (6) GERD (gastroesophageal reflux disease): Plan: Continue Protonix Plan Past medical history: Acute basilic vein thrombosis Pneumonia due to 2019 novel coronavirus CODE STATUS: DNR/DNI DVT prophylaxis: Coumadin Admission and Anticipated Discharge Date Admission Date: June 07, 2024 Subjective Patient was seen and examined at 10:50 AM. He was accompanied by his at the bedside. Per , he is at his baseline. He is AO x 2. Review of Systems Review of Systems: Unobtainable due to cognitive status Physical Exam Physical Exam: General: Awake, conversant Heart: S1, S2/regular rate and rhythm, no murmur rubs or gallops Lungs: Clear to auscultation bilaterally. Normal effort Abdomen: Soft/nontender/nondistended. No hepatosplenomegaly Extremities: No clubbing/cyanosis. No edema Behavior: Appropriate, cooperative Results & Data Results & Data Vital Signs (Past 12 Hours) Vital Signs Temp Pulse Pulse Resp BP Pulse Ox O2 Del Method 06/08/24 10:37 36.8 C 56 L 18 98/63 L 96 Room Air 06/08/24 07:37 48 L 06/08/24 07:10 36.5 C 47 L 17 111/70 95 Room Air 06/08/24 03:11 36.5 C 52 L 16 103/64 93 Room Air PG Care Time/CCT Total # of Minutes Spent Total Time Spent with Patient: Total time spent is greater than 50% in coordination of care (as documented) at patient's floor/unit and/or counseling patient: Coding Level of Care Code 98779 SUB INP/OBS CARE 235MIN Diagnoses Hypersomnolence G47.10 Pulmonary embolism and infarction I26.99 Hemiparesis of right dominant side G81.91 HTN (hypertension) I10 Hypertension type: unspecified Coronary artery disease I25.10 GERD (gastroesophageal reflux disease) K21.9 (4) HTN (hypertension) Hypertension type: unspecified Qualified Code(s): I10 - Essential (primary) hypertension
[2024-06-08] MEDS: WARFARIN SOD 2 MG TAB PO SCH (16:17)
[2024-06-09 07:54] VITALS: BP 107/69; PULSE 73; RESP 18; TEMP 98.4; O2SAT 93
[2024-06-09 08:14] LABS: INR 2.6 (0.9-1.1); Prothrombin Time 25.6 Seconds (9.0-12.0)
--- NOTE | 2024-06-09 10:04 | Discharge Summary ---
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 The patient's provided me with most of the history. She stated that he has been sleeping excessively for about 6 months. And it has been gradually getting worse. There are days when he is sharp but there other days when he is very sleepy and forgetful. He sometimes sleeps for 24 to 48 hours at a stretch and it is impossible for them to wake him up. This morning, he had a Coumadin clinic appointment and it was very difficult for her to wake him up to get him to the appointment. Finally he was able to get him to the clinic. However, while at the clinic, he was excessively drowsy. Dr. Saba was concerned and sent him to the emergency room. In the ER, he had some screening labs done all of which were negative. Urinalysis was negative as well. His CT head, CTA neck and CTA head were all negative. It was noted in the ER that his heart rate was in the 40s. EKG showed sinus bradycardia, otherwise normal EKG. He is being admitted to evaluate for seizure, to get a neurologist involved and to monitor on telemetry in case the bradycardia was related to his hypersomnolence/unresponsiveness Past medical history 1. 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 History of PE/DVT. Initially on Eliquis. Had the bleeding stroke while on Eliquis. Then switched over to Coumadin. Has been on Coumadin since 3. Coronary artery disease status post stent 4. Question of prostate cancer 5. Benign essential hypertension 6. Hyperlipidemia 7. Depression 8. Cervical neck fracture Admission Exam Per Admitting Provider General appearance: Was sleeping for most of my encounter. I was able to wake him up. He answered some simple questions for me. Pupils: Equally reactive to light and accommodation Neck: No masses, no thyromegaly Respiration: Clear to auscultation bilaterally. Normal effort Cardiovascular: S1-S2/regular rate and rhythm. No murmur, rubs or gallop. No edema. Abdomen: Soft, nontender, nondistended. No hepatosplenomegaly Musculoskeletal: No clubbing, no cyanosis, normal range of motion Skin: No rashes, no nodules Neuro exam: Cranial nerves intact, sensation grossly intact. Right upper and lower extremity paralysis noted Psychiatric: Patient did not talk much and did not participate in a conversation. AOx3. Lymphatics: No cervical or axillary lymphadenopathy noted Principal Diagnosis Hypersomnolence 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 or possible central sleep apnea as a result of previous hemorrhagic stroke that may have involved the hypothalamus Discharge Exam General: Awake, conversant Heart: S1, S2/regular rate and rhythm, no murmur rubs or gallops Lungs: Clear to auscultation bilaterally. Normal effort Abdomen: Soft/nontender/nondistended. No hepatosplenomegaly Extremities: No clubbing/cyanosis. No edema Behavior: Appropriate, cooperative Discharge Data Allergies Allergy/AdvReac Type Severity Reaction Status Date / Time niacin Allergy Intermediate itching Verified 11/01/23 10:10 [From Niaspan Extended-Release] Sulfa (Sulfonamide Allergy Intermediate RASH Verified 11/01/23 10:10 Antibiotics) latex Allergy Mild Redness of Verified 11/01/23 10:10 Skin Consultations 06/07/24 16:11 ED Decision to Admit Stat 06/07/24 17:03 Consult Neurology Routine Ordered Studies Chest X-Ray 06/07/24 11:36 XR chest 1V portable CLINICAL HISTORY: fatigue COMPARISON STUDY: 02/13/2024 FINDINGS: There is stable cardiomegaly without pulmonary vascular congestion. Inspiration is shallow. There is mild stranding in the lung bases, likely atelectasis. No other consolidation or pleural effusion. No pneumothorax. IMPRESSION: Likely lung base atelectasis. ACT 112: Negative or not required by law. Electronically signed by: Vern Chacon M.D. 06/07/2024 11:[address] 06/07/24 12:10 CT head/brain wo con CLINICAL HISTORY: 84 years-old Male with neuro deficit, acute stroke suspected. Acute stroke like symptoms TECHNIQUE: Multiple axial CT images of the head were obtained without contrast. A dose lowering technique was utilized adhering to the principles of ALARA. COMPARISON: CTA head of same day, head CT 08/02/2023 FINDINGS: No acute intracranial hemorrhage, midline shift, intracranial mass, hydrocephalus, territorial ischemia or abnormal extra-axial collection. Involutional changes with unchanged extensive and confluent white matter hypodensities suggestive of chronic microvascular ischemic disease. Chronic right basal ganglia lacunar infarcts. Prominent atherosclerosis of the intracranial arteries. The calvarium is intact. Prior bilateral lens repair. The paranasal sinuses, mastoid air cells, and middle ear cavities are clear. IMPRESSION: No acute intracranial abnormality identified. ACT 112: Negative or not required by law. The above report was generated using voice recognition software. It may contain grammatical, syntax or spelling errors. Electronically signed by: Antonio James M.D. 06/07/2024 1:53 PM Head CTA 06/07/24 12:10 CT angio neck with con, CT angio head w con CLINICAL HISTORY: neuro deficit, acute stroke suspected. COMPARISON STUDY: 09/01/2022. Noncontrast head CT earlier today TECHNIQUE: Following the IV administration of 120 of Optiray, CT angiogram of the neck and brain was performed from the aortic arch to the skull base. Images are reviewed in the axial, sagittal, and coronal planes. 3-D MIPS images are created and assessed. IV contrast was administered without complication. All measurements were calculated based on NASCET criteria. A dose lowering technique was utilized adhering to the principles of ALARA. CT DOSE: 1186.92 mGy.cm FINDINGS: There are extensive airway secretions at the distal trachea. There are mild scattered atherosclerotic calcifications. No significant narrowing or occlusion seen at the common or internal carotid arteries bilaterally. The right vertebral artery is extremely diminutive and terminates in PICA, stable. No significant narrowing seen at the left vertebral artery. Basilar artery is widely patent. The anterior, middle, and posterior cerebral arteries are patent bilaterally. Cerebral venous sinuses opacify normally. Stable old odontoid fracture. IMPRESSION: 1. Extensive airway secretions of the distal trachea. 2. No significant arterial narrowing or occlusion seen at the head or neck. 3. Otherwise as described. ACT 112: Negative or not required by law. The above report was generated using voice recognition software. It may contain grammatical, syntax or spelling errors. Electronically signed by: Vern Chacon M.D. 06/07/2024 2:06 PM Neck CTA 06/07/24 12:10 CT angio neck with con, CT angio head w con CLINICAL HISTORY: neuro deficit, acute stroke suspected. COMPARISON STUDY: 09/01/2022. Noncontrast head CT earlier today TECHNIQUE: Following the IV administration of 120 of Optiray, CT angiogram of the neck and brain was performed from the aortic arch to the skull base. Images are reviewed in the axial, sagittal, and coronal planes. 3-D MIPS images are created and assessed. IV contrast was administered without complication. All measurements were calculated based on NASCET criteria. A dose lowering technique was utilized adhering to the principles of ALARA. CT DOSE: 1186.92 mGy.cm FINDINGS: There are extensive airway secretions at the distal trachea. There are mild scattered atherosclerotic calcifications. No significant narrowing or occlusion seen at the common or internal carotid arteries bilaterally. The right vertebral artery is extremely diminutive and terminates in PICA, stable. No significant narrowing seen at the left vertebral artery. Basilar artery is widely patent. The anterior, middle, and posterior cerebral arteries are patent bilaterally. Cerebral venous sinuses opacify normally. Stable old odontoid fracture. IMPRESSION: 1. Extensive airway secretions of the distal trachea. 2. No significant arterial narrowing or occlusion seen at the head or neck. 3. Otherwise as described. ACT 112: Negative or not required by law. The above report was generated using voice recognition software. It may contain grammatical, syntax or spelling errors. Electronically signed by: Vern Chacon M.D. 06/07/2024 2:06 PM 06/07/24 12:10 CT angio head w con Stat CT angio neck with con Stat CT head/brain wo con Stat Hospital Course (1) Hypersomnolence: Per family, this has been going on for about 6 months or so where he has good days and bad days. He has slept for 24 to 48 hours at a stretch. He is also more forgetful some days than the others. EEG ruled out seizures The neurologist suspects that his hypersomnolence could be due to acquired narcolepsy or possibly central sleep apnea as a result of previous hemorrhagic stroke that may have also involved the hypothalamus Neurologist recommends outpatient referral to sleep medicine to include polysomnogram and MSLT In the emergency room, the patient was noted to have bradycardia in the 40s. 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 (4) HTN (hypertension): Continue lisinopril and doxazosin (5) Coronary artery disease: Continue Lipitor and lisinopril (6) GERD (gastroesophageal reflux disease): Continue Protonix Plan Past medical history: Acute basilic vein thrombosis Pneumonia due to 2019 novel coronavirus Discharge to home today CODE STATUS: DNR/DNI DVT prophylaxis: Coumadin Total Time Total Time Spent Total Time Spent (In Minutes): 35 Discharge Plan Discharge Items Patient Disposition: Home - Self-Care Reason For Visit: EXCESSIVE SOMNOLENCE Discharge Diagnosis: Hypersomnolence 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 or possible central sleep apnea as a result of previous hemorrhagic stroke that may have involved the hypothalamus Activity: Resume your previous activity Non-emergency contact: Primary Care Provider Call non-emergency contact if: you have any medication questions and your symptoms worsen Follow-up/Referrals: Valentin Freitas DO [Primary Care Provider] - Diet: Heart Healthy Addtl Attending Provider Instructions: Advised to follow-up with PCP in 1 week Advised to note that you will be called to be scheduled with sleep medicine Pending Studies at Discharge: No Stand-Alone Forms: My [facility] [employer] Medications and DC Order Prescriptions: Continued magnesium supplement 1 tab PO DAILY escitalopram oxalate 20 mg tablet 20 mg PO DAILY pantoprazole 40 mg tablet,delayed release (DR/EC) 40 mg PO QAM doxazosin 4 mg tablet 4 mg PO QPM Navin Probiotic 14 billion cell capsule 1 cell PO UD Rx Instructions: OTC as directed multivitamin Tablet 1 tab PO QAM atorvastatin 40 mg tablet 40 mg PO QAM lisinopril 10 mg tablet 10 mg PO QAM zinc gluconate 50 mg Tablet 50 mg PO DAILY warfarin 4 mg tablet 2 - 4 mg PO UD Rx Instructions: 2mg every Tuesday/Tuesday/Tuesday, 4mg x 4 days per [facility] orally use as directed; Discharge Orders: Discharge Order (Routine); Ordered 06/09/24 Ordered By: Branden Ramey Admission Data Admit Date/Time: 06/07/24 17:14 Attending Provider: Branden Ramey Admit Provider: Branden Ramey Primary Care Provider: Valentin Freitas Other Providers: Randal Henley; Chace Littlejohn Other Interventions: Discharge Summary Assessment (RN) Last Done: 06/09/24 10:59
== END 2024-06-09 11:37 | disposition home or self-care (01) | DRG 887 ==
LOC: ED 10:57 → INTOOBSV 17:14 → 2S 17:14